=== PATIENT | female | born 1970 | race Asian ===

== ENCOUNTER 2016-07-29 22:17 | Emergency (ER) | payer OTHER ==
[~2016-07-29] VITALS: Ht 162.6 cm; Wt 77.1 kg
[~2016-07-29 22:17] MED LIST: CEFP100T PO; CIPR500T PO; HYDR-2666 PO; PHEN-373 PO
[2016-07-29] MEDS ORDERED: MECLIZINE HCL 12.5 MG TABLET. PO ONE (22:45)
[2016-07-29] MEDS ORDERED: KETOROLAC 15 MG/ML VIAL. IV ONE (22:45)
[2016-07-29] MEDS ORDERED: IV NORMAL SALINE 500ML BAG 500 ML IV ONE (22:45)
[2016-07-29] MEDS ORDERED: ONDANSETRON PF 4 MG/2 ML VIAL. IV ONE (22:45)
[2016-07-29 22:48] LABS: BASO # 0.1 x10^3/uL (0.0-0.2); BASO % 0 % (0-3); EOS % 1 % (0-3); HEMATOCRIT 30.1 % (36.0-47.0); HEMOGLOBIN 9.3 g/dL (12.0-15.5); LYMPH # 2.4 x10^3/uL (1.0-4.8); LYMPH % 21 % (24-48); MEAN CORPUSCULAR HEMOGLOBIN 21 pg (25-35); MEAN CORPUSCULAR HGB CONC 31 g/dL (31-37); MEAN CORPUSCULAR VOLUME 67 fL (79-100); MONO % 10 % (0-9); NEUT % 68 % (31-73); PLATELET COUNT 345 x10^3/uL (140-400); RED BLOOD COUNT 4.47 x10^6/uL (3.50-5.40); RED CELL DISTRIBUTION WIDTH 17.8 % (11.5-14.5); WHITE BLOOD COUNT 11.5 x10^3/uL (4.0-11.0)
[2016-07-29 23:07] LABS: ANISOCYTOSIS SLIGHT; HYPOCHROMIA MARKED; MICROCYTOSIS MARKED; PLT ESTIMATE ADEQUATE (ADEQUATE)
[2016-07-29 23:09] LABS: CALCIUM 9.1 mg/dL (8.5-10.1); CREATININE 0.6 mg/dL (0.6-1.0); GFR 108.1
[2016-07-29 23:15] LABS: POTASSIUM 2.8 mmol/L (3.5-5.1)
[2016-07-29 23:24] LABS: BILIRUBIN,URINE NEGATIVE (NEG); GLUCOSE,URINE NEGATIVE (NEG); NITRITE,URINE NEGATIVE (NEG); PH,URINE 6.5; PROTEIN,URINE NEGATIVE (NEG-TRACE); UROBILINOGEN,URINE 0.2 mg/dL (0.2 mg/dL)
[2016-07-29 23:27] VITALS: BP 107/69
[2016-07-29] MEDS ORDERED: POTASSIUM CHLORIDE 20 MEQ TABLET.ER. PO ONE (23:30)
[2016-07-29] MEDS ORDERED: LIDO:MAALOX:DONNATAL 1:1:1 15 ML SINGLE DOSE SWSW ONE (23:30)
--- NOTE | 2016-07-29 23:31 | PHYS DOC ---
Past Medical History Past Medical History: Anxiety, Hypertension, Other Additional Past Medical Histor: "Stomach", possibly acid reflux, Past Surgical History: Appendectomy Alcohol Use: None Drug Use: None Adult General Chief Complaint Chief Complaint: SHORTNESS OF BREATH HPI HPI Patient is a 45 year old female who presents with family for gradual onset of feeling poor today with multiple symptoms. Has some nausea and epigastric abdominal discomfort that radiates into chest. Notes nonproductive cough, dyspnea, and decreased appetite. She has some lightheadedness/dizziness upon standing, but not at rest. Has some chills, loose stools and dysuria as well. She denies measured fever, hematuria, back pain, constipation, vaginal bleeding or discharge, sputum production, sore throat, rhinorrhea, nasal congestion. Review of Systems Review of Systems Constitutional: Denies measured fever [] Eyes: Denies change in visual acuity, redness, or eye pain [] HENT: Denies nasal congestion or sore throat [] Respiratory: Has cough and shortness of breath [] Cardiovascular: No additional information not addressed in HPI [] GI: Denies vomiting, bloody stools [] : Denies hematuria [] Musculoskeletal: Denies back pain or joint pain [] Integument: Denies rash or skin lesions [] Neurologic: Denies headache, focal weakness or sensory changes [] Endocrine: Denies polyuria or polydipsia [] Current Medications Current Medications Current Medications Medications (Trade) Dose Ordered Sig/Celsa Start Time Stop Time Status Last Admin Dose Admin Ketorolac Tromethamine (Toradol) 10 mg 1X ONCE 07/29/16 22:45 07/29/16 22:46 DC 07/29/16 23:09 10 MG Meclizine HCl (Antivert) 12.5 mg 1X ONCE 07/29/16 22:45 07/29/16 22:46 DC 07/29/16 23:09 12.5 MG Multi-Ingredient Mouthwash/Gargle (Gi Cocktail Single Dose) 15 ml 1X ONCE 07/29/16 23:30 07/29/16 23:31 DC Ondansetron HCl (Zofran) 4 mg 1X ONCE 07/29/16 22:45 07/29/16 22:46 DC 07/29/16 23:09 4 MG Potassium Chloride (Klor-Con) 40 meq 1X ONCE 07/29/16 23:30 07/29/16 23:31 DC Sodium Chloride 500 ml @ 500 mls/hr 1X ONCE 07/29/16 22:45 07/29/16 23:44 07/29/16 23:09 500 MLS/HR Allergies Allergies Allergies Coded Allergies Type Severity Reaction Last Updated Verified I S O L A T I O N *CONTACT* Allergy Unknown 07/08/15 Yes No Known Medication Allergies Allergy Unknown 07/08/15 Yes Physical Exam Physical Exam Constitutional: Well developed, well nourished, no acute distress, non-toxic appearance. [] HENT: Normocephalic, atraumatic, bilateral external ears normal, oropharynx moist, no oral exudates, nose normal. [] Eyes: PERRLA, EOMI, conjunctiva normal, no discharge. [] Neck: Normal range of motion, no tenderness, supple, no stridor. [] Cardiovascular:Heart rate regular rhythm [] Lungs & Thorax: Bilateral breath sounds clear to auscultation [] Abdomen: Bowel sounds normal, soft, minimal epigastric tenderness, no guarding or rebound. [] Skin: Warm, dry, no erythema, no rash. [] Back: No tenderness, no CVA tenderness. [] Extremities: No tenderness, ROM intact, no edema. [] Neurologic: Alert and oriented X 3, normal motor function, normal sensory function, no focal deficits noted. [] Psychologic: Affect normal, judgement normal, mood normal. [] Current Patient Data Vital Signs Vital Signs Date Time Temp Pulse Resp B/P (MAP) Pulse Ox O2 Delivery O2 Flow Rate FiO2 07/29/16 23:11 97.9 80 16 113/71 (85) 100 Room Air 97.9 Lab Values Laboratory Tests Test 07/29/16 22:35 07/29/16 23:15 White Blood Count 11.5 x10^3/uL (4.0-11.0) H Red Blood Count 4.47 x10^6/uL (3.50-5.40) Hemoglobin 9.3 g/dL (12.0-15.5) L Hematocrit 30.1 % (36.0-47.0) L Mean Corpuscular Volume 67 fL (79-100) L Mean Corpuscular Hemoglobin 21 pg (25-35) L Mean Corpuscular Hemoglobin Concent 31 g/dL (31-37) Red Cell Distribution Width 17.8 % (11.5-14.5) H Platelet Count 345 x10^3/uL (140-400) Neutrophils (%) (Auto) 68 % (31-73) Lymphocytes (%) (Auto) 21 % (24-48) L Monocytes (%) (Auto) 10 % (0-9) H Eosinophils (%) (Auto) 1 % (0-3) Basophils (%) (Auto) 0 % (0-3) Neutrophils # (Auto) 7.9 x10^3uL (1.8-7.7) H Lymphocytes # (Auto) 2.4 x10^3/uL (1.0-4.8) Monocytes # (Auto) 1.1 x10^3/uL (0.0-1.1) Eosinophils # (Auto) 0.1 x10^3/uL (0.0-0.7) Basophils # (Auto) 0.1 x10^3/uL (0.0-0.2) Platelet Estimate Adequate (ADEQUATE) Hypochromasia Marked Anisocytosis Slight Microcytosis Marked Sodium Level 141 mmol/L (136-145) Potassium Level 2.8 mmol/L (3.5-5.1) *L Chloride Level 105 mmol/L (98-107) Carbon Dioxide Level 25 mmol/L (21-32) Anion Gap 11 (6-14) Blood Urea Nitrogen 15 mg/dL (7-20) Creatinine 0.6 mg/dL (0.6-1.0) Estimated GFR (Cockcroft-Gault) 108.1 Glucose Level 101 mg/dL (70-99) H Calcium Level 9.1 mg/dL (8.5-10.1) Troponin I Quantitative < 0.017 ng/mL (0.000-0.055) LQ-Uyg-C-Type Natriuretic Peptide 26 pg/mL (0-124) Urine Collection Type Unknown Urine Color Yellow Urine Clarity Clear Urine pH 6.5 Urine Specific [place] 1.010 Urine Protein Negative mg/dL (NEG-TRACE) Urine Glucose (UA) Negative mg/dL (NEG) Urine Ketones (Stick) Negative mg/dL (NEG) Urine Blood Trace (NEG) Urine Nitrite Negative (NEG) Urine Bilirubin Negative (NEG) Urine Urobilinogen Dipstick 0.2 mg/dL (0.2 mg/dL) Urine Leukocyte Esterase Small (NEG) Urine RBC 3-5 /HPF (0-2) Urine WBC 5-10 /HPF (0-4) Urine Squamous Epithelial Cells Mod /LPF Urine Bacteria Few /HPF (0-FEW) Laboratory Tests 07/29/16 22:35 Laboratory Tests 07/29/16 22:35 EKG EKG EKG as interpreted by me as normal sinus rhythm, rate 83, no ST-T changes, normal intervals, no ectopy Radiology/Procedures Radiology/Procedures Chest xray as interpreted by me with no acute cardiopulmonary disease process Course & Med Decision Making Course & Med Decision Making Pertinent Labs and Imaging studies reviewed. (See chart for details) Workup is largely unremarkable other than mild hypokalemia. This was replaced by mouth. Return precautions given. She understands and agrees with plan. Dragon Disclaimer Dragon Disclaimer This electronic medical record was generated, in whole or in part, using a voice recognition dictation system. Departure Departure Impression: Primary Impression: Abdominal pain Additional Impressions: Chest pain Hypokalemia Disposition: 01 HOME, SELF-CARE Condition: STABLE Referrals: UNKNOWN PCP NAME (PCP) Patient Instructions: Abdominal Pain, [id number], Chest Pain (Nonspecific), [id number] Additional Instructions: Take Zofran as needed for nausea. Take liquids to stay hydrated. Take famotidine for possible acid reflux. Follow-up with your primary care doctor within one week. Return for any concerns. Scripts Famotidine (FAMOTIDINE) 20 Mg Tablet 20 MG PO BID, #30 TAB Prov: Radha EDGE MD 07/29/16 Ondansetron (ZOFRAN ODT) 4 Mg Tab.rapdis 1 TAB SL Q8HRS Y for NAUSEA, #10 TAB Prov: Radha EDGE MD 07/29/16 Problem Qualifiers Primary Impression: Abdominal pain Abdominal location: epigastric Qualified Codes: R10.13 - Epigastric pain Additional Impressions: Chest pain Chest pain type: unspecified Qualified Codes: R07.9 - Chest pain, unspecified Radha EDGE MD July 29, 2016 23:31
[2016-07-29 23:33] LABS: BACTERIA,URINE FEW /HPF (0-FEW); SQUAMOUS EPITHELIAL CELL,UR MOD /LPF
[2016-07-29] MEDS ORDERED: ONDA4TAB10 SL (23:37)
[2016-07-29] MEDS ORDERED: FAMO20TA5 PO (23:40)
--- NOTE | 2016-07-30 07:06 | EKG ---
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
--- NOTE | 2016-07-30 07:45 | RAD ---
Indication shortness of breath. Mid chest pain. PA and lateral views of the chest were obtained and are compared to a study 08/12/2015. The heart and pulmonary vessels appear normal. The lungs are clear. There is no pleural fluid or pneumothorax. Bony structures appear grossly intact. IMPRESSION: No acute or focal process seen in the chest
== END 2016-07-29 23:50 | disposition home or self-care (01) ==
LOC: ER 22:17
DX: R10.13 Epigastric pain (principal); R07.9 Chest pain, unspecified; E87.6 Hypokalemia; F41.9 Anxiety disorder, unspecified; I10 Essential (primary) hypertension; R05 Cough; R30.0 Dysuria; Z90.49 Acquired absence of other specified parts of digestive tract; Z91.041 Radiographic dye allergy status
CPT/HCPCS: 36415; 71020; 80048; 81001; 83880; 84484; 85007; 85027; 87086; 93005; 96361; 96374; 96375; 99285; J1885; J2405; J7040; J8597

== ENCOUNTER 2016-08-08 20:53 | Observation (INO) | payer OTHER ==
[~2016-08-08] VITALS: Ht 160 cm; Wt 77.1 kg
[~2016-08-08 20:53] MED LIST changes: +FAMO20TA5 PO; -HYDR-2666 PO; +HYDR-2758 PO; +ONDA4TAB10 SL; -PHEN-373 PO; +PHEN-444 PO
--- NOTE | 2016-08-08 21:33 | PHYS DOC ---
Past Medical History Past Medical History: Anxiety, Hypertension, Other Additional Past Medical Histor: "Stomach", possibly acid reflux, Past Surgical History: Appendectomy Alcohol Use: None Drug Use: None Adult General Chief Complaint Chief Complaint: CHEST PAIN HPI HPI Patient is a 45 year old F who presents with chest pain and shortness of breath for the past day. Patient speaks a foreign language and her 2 young sons are translating for her. So there is a significant language barrier. Patient states that her chest pain started today after she returned home from work and has progressively gotten worse with increased shortness of breath especially when she walks. Patient states she's had a history of heart attack however does not know she's had stents or bypass surgery. Patient denies any fevers. Patient denies any nausea/vomiting/diarrhea. Patient denies any abdominal pain. Patient denies any risk factors for DVT or PE. All these answers were provided through translation of her sons. Pertinent exam findings: Heart was regular rate and rhythm without any murmurs Lungs are clear to auscultation bilaterally without crackles wheeze or rales ED course: Patient was seen and examined in the emergency room, CBC, CMP, troponin, EKG, chest x-ray, CT angios the chest were ordered 230: Patient was reevaluated still having cp and wants to be admitted. 2315: Dr. Farmer was paged 2325: Discussed CC/HP/PMH with Dr. Farmer and recommends admit [] Pertinent results: 2104: EKG shows normal sinus rhythm rate of 83 no STEMI Troponin was negative CT angios the chest was unremarkable MDM: After reviewing the chart, CC/HPI/PMH, physical exam, [lab results], [ radiological results], I do not believe the patient having an acute NE, PE, thoracic aortic dissection. However given the significant language barrier and the patient's persistent symptoms we'll place the patient observation for the night. Review of Systems Review of Systems GEN: Denies fevers, chills, sweats HEENT: Denies blurred vision, sore throat CV: chest pain RESP: Denies shortness of air, cough GI: Denies n/v/d NEURO: Denies confusion, dizziness MSK: Denies weakness, joint pain/swelling Current Medications Current Medications Current Medications Medications (Trade) Dose Ordered Sig/Celsa Start Time Stop Time Status Last Admin Dose Admin Info (Do NOT chart on this entry -- for MONITORING) 1 each PRN DAILY PRN 08/08/16 22:00 08/10/16 21:59 Iohexol (Omnipaque 300 Mg/ml) 75 ml 1X ONCE 08/08/16 22:30 08/08/16 22:31 DC 08/08/16 22:16 75 ML Allergies Allergies Allergies Coded Allergies Type Severity Reaction Last Updated Verified I S O L A T I O N *CONTACT* Allergy Unknown 07/08/15 Yes No Known Medication Allergies Allergy Unknown 07/08/15 Yes Physical Exam Physical Exam GEN.: No apparent distress. Alert and oriented. HEENT: Head is normocephalic, atraumatic NECK: Supple. LUNGS: CTAB. HEART: RRR, S1, S2 present. Peripheral pulses intact ABDOMEN: Soft, nontender. Positive bowel sounds. EXTREMITIES: Without any cyanosis. NEUROLOGIC: Normal speech, normal tone PSYCHIATRIC: Normal affect, normal mood. SKIN: No ulcerations Current Patient Data Vital Signs Vital Signs Date Time Temp Pulse Resp B/P (MAP) Pulse Ox O2 Delivery O2 Flow Rate FiO2 08/08/16 21:01 97.8 81 20 143/65 (91) 100 Nasal Cannula 2.0 97.8 Lab Values Laboratory Tests Test 08/08/16 20:33 08/08/16 21:16 POC Urine HCG, Qualitative Hcg negative (Negative) White Blood Count 10.3 x10^3/uL (4.0-11.0) Red Blood Count 4.12 x10^6/uL (3.50-5.40) Hemoglobin 8.9 g/dL (12.0-15.5) L Hematocrit 27.6 % (36.0-47.0) L Mean Corpuscular Volume 67 fL (79-100) L Mean Corpuscular Hemoglobin 22 pg (25-35) L Mean Corpuscular Hemoglobin Concent 32 g/dL (31-37) Red Cell Distribution Width 18.3 % (11.5-14.5) H Platelet Count 472 x10^3/uL (140-400) H Neutrophils (%) (Auto) 60 % (31-73) Lymphocytes (%) (Auto) 32 % (24-48) Monocytes (%) (Auto) 6 % (0-9) Eosinophils (%) (Auto) 1 % (0-3) Basophils (%) (Auto) 1 % (0-3) Neutrophils # (Auto) 6.2 x10^3uL (1.8-7.7) Lymphocytes # (Auto) 3.3 x10^3/uL (1.0-4.8) Monocytes # (Auto) 0.6 x10^3/uL (0.0-1.1) Eosinophils # (Auto) 0.1 x10^3/uL (0.0-0.7) Basophils # (Auto) 0.1 x10^3/uL (0.0-0.2) Platelet Estimate Increased (ADEQUATE) Polychromasia Present Hypochromasia Mod Basophilic Stippling Present Anisocytosis Slight Microcytosis Marked Ovalocytes Few Schistocytes Few Sodium Level 144 mmol/L (136-145) Potassium Level 3.0 mmol/L (3.5-5.1) L Chloride Level 108 mmol/L (98-107) H Carbon Dioxide Level 26 mmol/L (21-32) Anion Gap 10 (6-14) Blood Urea Nitrogen 11 mg/dL (7-20) Creatinine 0.8 mg/dL (0.6-1.0) Estimated GFR (Cockcroft-Gault) 77.6 BUN/Creatinine Ratio 14 (6-20) Glucose Level 129 mg/dL (70-99) H Calcium Level 8.9 mg/dL (8.5-10.1) Total Bilirubin 0.4 mg/dL (0.2-1.0) Aspartate Amino Transferase (AST) 16 U/L (15-37) Alanine Aminotransferase (ALT) 21 U/L (14-59) Alkaline Phosphatase 65 U/L (46-116) Troponin I Quantitative < 0.017 ng/mL (0.000-0.055) Total Protein 7.7 g/dL (6.4-8.2) Albumin 3.6 g/dL (3.4-5.0) Albumin/Globulin Ratio 0.9 (1.0-1.7) L Laboratory Tests 08/08/16 21:16 Laboratory Tests 08/08/16 21:16 EKG EKG EKG shows normal sinus rhythm rate of 83 no STEMI [] Radiology/Procedures Radiology/Procedures CT angiogram of the chest and ED Chest x-ray NAD [] Course & Med Decision Making Course & Med Decision Making Pertinent Labs and Imaging studies reviewed. (See chart for details) [] Dragon Disclaimer Dragon Disclaimer This electronic medical record was generated, in whole or in part, using a voice recognition dictation system. Departure Departure Impression: Primary Impression: Chest pain Disposition: 09 ADMITTED INPATIENT Admitting Physician: Boston Farmer Condition: STABLE Referrals: UNKNOWN PCP NAME (PCP) GIULIA BAGLEY DO Aug 08, 2016 21:33
[2016-08-08 21:34] LABS: BASO # 0.1 x10^3/uL (0.0-0.2); BASO % 1 % (0-3); EOS % 1 % (0-3); HEMATOCRIT 27.6 % (36.0-47.0); HEMOGLOBIN 8.9 g/dL (12.0-15.5); LYMPH # 3.3 x10^3/uL (1.0-4.8); LYMPH % 32 % (24-48); MEAN CORPUSCULAR HEMOGLOBIN 22 pg (25-35); MEAN CORPUSCULAR HGB CONC 32 g/dL (31-37); MEAN CORPUSCULAR VOLUME 67 fL (79-100); MONO % 6 % (0-9); NEUT % 60 % (31-73); PLATELET COUNT 472 x10^3/uL (140-400); RED BLOOD COUNT 4.12 x10^6/uL (3.50-5.40); RED CELL DISTRIBUTION WIDTH 18.3 % (11.5-14.5); WHITE BLOOD COUNT 10.3 x10^3/uL (4.0-11.0)
[2016-08-08 21:57] LABS: ALBUMIN 3.6 g/dL (3.4-5.0); ALBUMIN/GLOBULIN RATIO 0.9 (1.0-1.7); CALCIUM 8.9 mg/dL (8.5-10.1); CREATININE 0.8 mg/dL (0.6-1.0); GFR 77.6; TOTAL BILIRUBIN 0.4 mg/dL (0.2-1.0); TOTAL PROTEIN 7.7 g/dL (6.4-8.2)
[2016-08-08] MEDS ORDERED: CONTRAST GIVEN MC PRN (22:00)
[2016-08-08 22:08] LABS: ANISOCYTOSIS SLIGHT; HYPOCHROMIA MOD; MICROCYTOSIS MARKED; OVALOCYTES FEW; PLT ESTIMATE INCREASED (ADEQUATE); POLYCHROMASIA PRESENT; SCHISTOCYTES FEW
[2016-08-08] MEDS ORDERED: IOHEXOL 300 MG/ML 75 ML VIAL IV ONE (22:30)
--- NOTE | 2016-08-08 22:43 | RAD ---
CT Angio chest Indication: chest pain x tonight; Omni 300, 75ml Technique: Multiple contiguous axial images were obtained through the chest after administration of intravenous iodinated contrast. Coronal, sagittal, and 3-D MIP reformations were created. PQRS STATEMENT: One or more of the following in the visualized dose reduction techniques were utilized for this study: 1. Automatic exposure control, 2. Adjustment of the mA and/or kV according to patient size, 3. Use of iterative reconstruction technique Findings: There is no central filling defect within the pulmonary arteries to suggest presence of pulmonary embolism. Heart size is normal. There is no pericardial effusion. The thoracic aorta is normal in caliber with no evidence for dissection. No thoracic adenopathy is identified. The lungs are clear with no evidence for pleural effusion or infiltrate. No destructive osseous lesion is identified. Limited subdiaphragmatic evaluation is unremarkable. Impression: Negative for pulmonary embolism. Electronically signed by: Ras Marion MD (08/08/2016 10:40 PM)
[2016-08-08] MEDS ORDERED: ONDANSETRON PF 4 MG/2 ML VIAL. IV PRN (23:30)
[2016-08-08] MEDS ORDERED: NITROGLYCERIN SUBLINGUAL 0.4 MG BOTTLE OF 25. SL PRN (23:30)
[2016-08-08] MEDS: MORPHINE SULFATE 4 MG/ML DISP.SYRIN. IV PRN (23:42)
[2016-08-08] MEDS ORDERED: ASPIRIN CHEWABLE 81 MG TABLET. PO ONE (23:45)
[2016-08-09] VITALS (7 sets, daily range): BP systolic 93–124; BP diastolic 56–86
[2016-08-09] MEDS: POTASSIUM CHLORIDE 20 MEQ TABLET.ER. PO SCH ×2 (01:14→08:08)
--- NOTE | 2016-08-09 03:29 | ACF ---
Admission Forms Criteria TELEMETRY CARE Telemetry Admission Guidelines (Place 'X' for any and all applicable criteria): Admission to telemetry [A] may be indicated for ANY ONE of the following(1)(2)(3 )(4)(5): [X]I. Cardiac disease, including ANY ONE of the following (9)(10)(11)(12)(13 ): [ ]a) Postacute AR [ ]b) Low-risk patients with ST-segment elevation AR who have undergone successful percutaneous coronary intervention [X]c) Unstable angina [ ]d) Suspected AR (until it is ruled out) [ ]e) Post cardiac surgery (first 48 to 72 hours unless complications occur) [ ]f) Acute arrhythmias (including significant tachycardia or bradycardia) [B] [ ]g) Firing of an implantable cardioverter defibrillator [C] [ ]h) Suspected pacemaker or implantable cardioverter defibrillator malfunction (10) [ ]i) New administration or adjustment of an antiarrhythmic drug [D ] [ ]j) Child admitted for acute congestive heart failure [ ]j) Long QT syndrome [ ]k) Advanced heart block (eg, second-degree Mobitz type II, third- degree heart block) [ ]l) Acute myocarditis or pericarditis [ ]m) Short-term (ambulatory or inpatient) monitoring after a cardiac procedure as indicated by ANY ONE of the following [E]: [ ]i) Electrophysiologic studies [ ]ii) Percutaneous coronary intervention with stent placement [ ]iii) Pacemaker placement with cardiac conduction defect [ ]iv) Implantable cardiac defibrillator placement [ ]II. Drug overdose or poisoning with substance that causes arrhythmias or QT prolongation (eg, phenothiazines, sympathomimetic agents, cyclic antidepressants, digitalis, antiarrhythmic drugs)(15) [ ]III. Short-term (ambulatory or inpatient) monitoring after therapeutic or diagnostic procedure requiring conscious sedation or anesthesia (eg, endoscopy, elective cardioversion) [ ]IV. Acute cerebrovascular even[F](18) [ ]V. Massive blood transfusion (eg, at least 10 units of packed red blood cells in 24 hours) [ ]. Variceal bleeding after endoscopy, sclerotherapy, or IV vasopressin [ ]VII. Uncorrected electrolyte abnormalities associated with an increased risk of dangerous arrhythmia [G]; examples include [ ]a) Hyperkalemia with attributable ECG changes [ ]b) Potassium greater than 6.5 mmol/L (mEq/L) in a patient without history of chronic renal disease [ ]c) Prolonged QT attributed to hypokalemia, hypomagnesemia, or hypocalcemia [ ]VIII.Unexplained syncope or other neurologic event suspected of being due to arrhythmia due to a finding that increases risk; examples include(19)(20)(21): [ ]a) High-risk ECG findings (eg, bifascicular block, bradycardia, abnormal QT interval, ventricular pre- excitation) [ ]b) History of previous syncope due to arrhythmia [ ]c) Abnormal ventricular function (eg, reduced ejection fraction ) [ ]d) Exertional or supine syncope [ ]e) Concerning syncope characteristics (eg, sudden loss of consciousness without prodrome) [ ]f) Family history of sudden [ ]g) Use of arrhythmogenic medication [ ]h) Suspected cardiac ischemia [ ]i) Known channelopathy (eg, long QT syndrome, Brugada syndrome, or catecholaminergic paroxysmal ventricular tachycardia) [ ]j) Known structural heart disease (eg, hypertrophic cardiomyopathy , severe valvular disease) [ ]k) Palpitations preceding syncope The original [employer] content created by [employer] has been revised. The portions of the content which have been revised are identified through the use of italic text or in bold, and [facility] has neither reviewed nor approved the modified material. All other unmodified content is copyright [employer]. Please see references footnoted in the original [employer] edition 2015 Admission Criteria Met?: Yes CORINA LAGUNAS Aug 09, 2016 03:29
[2016-08-09 06:10] LABS: BASO # 0.1 x10^3/uL (0.0-0.2); BASO % 1 % (0-3); EOS % 3 % (0-3); HEMATOCRIT 25.7 % (36.0-47.0); LYMPH # 3.1 x10^3/uL (1.0-4.8); LYMPH % 36 % (24-48); MEAN CORPUSCULAR HEMOGLOBIN 21 pg (25-35); MEAN CORPUSCULAR HGB CONC 31 g/dL (31-37); MEAN CORPUSCULAR VOLUME 67 fL (79-100); MONO % 8 % (0-9); NEUT % 53 % (31-73); PLATELET COUNT 429 x10^3/uL (140-400); RED BLOOD COUNT 3.84 x10^6/uL (3.50-5.40); RED CELL DISTRIBUTION WIDTH 18.2 % (11.5-14.5); WHITE BLOOD COUNT 8.5 x10^3/uL (4.0-11.0)
[2016-08-09 06:18] LABS: CALCIUM 8.5 mg/dL (8.5-10.1); CREATININE 0.6 mg/dL (0.6-1.0); GFR 108.1; POTASSIUM 3.7 mmol/L (3.5-5.1)
--- NOTE | 2016-08-09 08:13 | RAD ---
Indication chest pain A single view of the chest was obtained. Comparison is made to a study 07/29/2016 The level of inspiratory effort is suboptimal. Heart and pulmonary vessels are normal given the level of inspiratory effort. A focal process in the chest is not seen. Given changes in the level of inspiratory effort a significant change compared to the previous exam is not seen. IMPRESSION: Suboptimal inspiratory effort. No acute or focal process is seen in the chest
[2016-08-09] MEDS: MORPHINE SULFATE 4 MG/ML DISP.SYRIN. IV PRN ×2 (08:14→14:24)
--- NOTE | 2016-08-09 12:51 | EKG ---
[facility] [address] [place] [address] Test Date: 2016-08-08 Test Time: 21:01:52 Pat Name: HAYLEY HARDY Department: Room: [facility] Gender: F [employer]: CLAIRE : 1970 Requested By: GIULIA BAGLEY Order Number: [id number] Reading MD: Rachell Vaughn Measurements Intervals [place] Rate: 83 P: 37 [place]: 192 QRS: 5 QRSD: 80 T: 22 QT: 366 QTc: 431 Interpretive Statements SINUS RHYTHM NORMAL ECG RI6.01 Unconfirmed report Compared to ECG 07/29/2016 22:25:40 No significant changes Electronically Signed On 08-09-2016 21:23:41 CDT by Rachell Vaughn
[2016-08-09] MEDS ORDERED: MORPHINE SULFATE 4 MG/ML DISP.SYRIN. IV PRN (15:30)
[2016-08-09] MEDS ORDERED: METOCLOPRAMIDE HCL 10 MG/2 ML VIAL. IV PRN (15:30)
[2016-08-09] MEDS ORDERED: MINERAL OIL 133 ML ENEMA. PR ONE (15:45)
[2016-08-09] MEDS ORDERED: MAGNESIUM CITRATE 296 ML SOLUTION. PO ONE (15:45)
--- NOTE | 2016-08-09 16:58 | PDOC2 ---
CONSULT Date of Consult Date of Consult DATE: 08/09/16 TIME: 16:52 Reason for Consult Reason for Consult: chest pain Referring Physician Referring Physician: Dr. Farmer Identification/Chief Complaint Chief Complaint chest pain Source Source: Patient History of Present Illness Reason for Visit: The patient is a 45-year-old female who came to the emergency room with a chief complaint of one to 2 days of chest pain and increasing shortness of breath. 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 Initial workup included a CT scan of the chest which was negative for pulmonary embolism. EKG shows a sinus rhythm with mild nonspecific ST-T wave changes. Troponin has been negative 2. The patient is now resting more comfortable in bed. Past Medical History Cardiovascular: HTN, NH, Other GI: GERD Psych: Anxiety Past Surgical History Past Surgical History: Appendectomy, Other Family History Family History: Family History Unknown Social History No ALCOHOL: none Drugs: None Current Problem List Problem List Problems Medical Problems: (1) Chest pain Status: Acute Current Medications Current Medications Current Medications Iohexol (Omnipaque 300 Mg/ml) 75 ml 1X ONCE IV Last administered on 08/08/16 22:16; Start 08/08/16 at 22:30; Stop 08/08/16 at 22:31; Status DC Info (Do NOT chart on this entry -- for MONITORING) 1 each PRN DAILY PRN MC SEE COMMENTS; Start 08/08/16 at 22:00; Stop 08/10/16 at 21:59 Ondansetron HCl (Zofran) 4 mg PRN Q8HRS PRN IV NAUSEA/VOMITING Last administered on 08/08/16 23:42; Start 08/08/16 at 23:30; Stop 08/09/16 at 15:28 ; Status DC Morphine Sulfate 4 mg PRN Q2HR PRN IV SEVERE PAIN Last administered on 14:24; Start 08/08/16 at 23:30; Stop 08/09/16 at 15:28; Status DC Nitroglycerin (Nitrostat) 0.4 mg PRN Q5MIN PRN SL CHEST PAIN Last administered on 08/08/16 23:41; Start 08/08/16 at 23:30; Stop 08/09/16 at 23:29 Aspirin (Children'S Aspirin) 324 mg 1X ONCE PO Last administered on 08/08/16 23:40; Start 08/08/16 at 23:45; Stop 08/08/16 at 23:46; Status DC Potassium Chloride (Klor-Con) 20 meq DAILYWBKFT PO Last administered on 08:08; Start 08/09/16 at 01:00 Magnesium Citrate (Citroma) 296 ml 1X ONCE PO Last administered on 08/09/16 15:45; Start 08/09/16 at 15:45; Stop 08/09/16 at 15:46; Status DC Mineral Oil (Fleet Mineral Oil) 133 ml 1X ONCE CO ; Start 08/09/16 at 15:45; Stop 08/09/16 at 15:46; Status DC Morphine Sulfate 2 mg PRN Q2HR PRN IV SEVERE PAIN; Start 08/09/16 at 15:30 Metoclopramide HCl (Reglan) 10 mg PRN Q8HRS PRN IV NAUSEA/VOMITING; Start 08/09 at 15:30 Famotidine (Pepcid) 20 mg BID PO ; Start 08/09/16 at 21:00 Polyethylene Glycol (miraLAX PACKET) 17 gm DAILY PO ; Start 08/09/16 at 17:00 Active Scripts Active Famotidine 20 Mg Tablet 20 Mg PO BID Zofran Odt (Ondansetron) 4 Mg Tab.rapdis 1 Tab SL Q8HRS PRN Phenazopyridine Hcl 200 Mg Tablet 200 Mg PO PRN TID PRN Hydrocodone-Apap 5-325 (Hydrocodone Bit/Acetaminophen) 1 Each Tablet 1 Tab PO PRN Q6HRS PRN Cefpodoxime Proxetil 100 Mg Tablet 100 Mg PO BID Allergies Allergies: Coded Allergies: I S O L A T I O N *CONTACT* (Verified Allergy, Unknown, 07/08/15) mrsa + No Known Medication Allergies (Verified Allergy, Unknown, 07/08/15) ROS Respiratory: YES: SOB with excertion Cardiovascular: yes Chest Pain Physical Exam General: No acute distress HEENT: Atraumatic Lungs: Clear to auscultation Heart: Regular rate Abdomen: Normal bowel sounds Vitals VITALS Vital Signs Date Time Temp Pulse Resp B/P (MAP) Pulse Ox O2 Delivery O2 Flow Rate FiO2 6/11/17 14:54 97 Nasal Cannula 2.0 08/09/16 11:00 97.2 74 16 100/70 (80) 97.2 Labs Labs Laboratory Tests Test 08/08/16 20:33 08/08/16 21:16 08/09/16 02:00 08/09/16 05:10 Bedside Urine HCG, Qualitative Hcg negative (Negative) White Blood Count 10.3 x10^3/uL (4.0-11.0) 8.5 x10^3/uL (4.0-11.0) Red Blood Count 4.12 x10^6/uL (3.50-5.40) 3.84 x10^6/uL (3.50-5.40) Hemoglobin 8.9 g/dL (12.0-15.5) 8.0 g/dL (12.0-15.5) Hematocrit 27.6 % (36.0-47.0) 25.7 % (36.0-47.0) Mean Corpuscular Volume 67 fL (79-100) 67 fL (79-100) Mean Corpuscular Hemoglobin 22 pg (25-35) 21 pg (25-35) Mean Corpuscular Hemoglobin Concent 32 g/dL (31-37) 31 g/dL (31-37) Red Cell Distribution Width 18.3 % (11.5-14.5) 18.2 % (11.5-14.5) Platelet Count 472 x10^3/uL (140-400) 429 x10^3/uL (140-400) Neutrophils (%) (Auto) 60 % (31-73) 53 % (31-73) Lymphocytes (%) (Auto) 32 % (24-48) 36 % (24-48) Monocytes (%) (Auto) 6 % (0-9) 8 % (0-9) Eosinophils (%) (Auto) 1 % (0-3) 3 % (0-3) Basophils (%) (Auto) 1 % (0-3) 1 % (0-3) Neutrophils # (Auto) 6.2 x10^3uL (1.8-7.7) 4.5 x10^3uL (1.8-7.7) Lymphocytes # (Auto) 3.3 x10^3/uL (1.0-4.8) 3.1 x10^3/uL (1.0-4.8) Monocytes # (Auto) 0.6 x10^3/uL (0.0-1.1) 0.7 x10^3/uL (0.0-1.1) Eosinophils # (Auto) 0.1 x10^3/uL (0.0-0.7) 0.2 x10^3/uL (0.0-0.7) Basophils # (Auto) 0.1 x10^3/uL (0.0-0.2) 0.1 x10^3/uL (0.0-0.2) Platelet Estimate Increased (ADEQUATE) Polychromasia Present Hypochromasia Mod Basophilic Stippling Present Anisocytosis Slight Microcytosis Marked Ovalocytes Few Schistocytes Few Sodium Level 144 mmol/L (136-145) 143 mmol/L (136-145) Potassium Level 3.0 mmol/L (3.5-5.1) 3.7 mmol/L (3.5-5.1) Chloride Level 108 mmol/L (98-107) 108 mmol/L (98-107) Carbon Dioxide Level 26 mmol/L (21-32) 26 mmol/L (21-32) Anion Gap 10 (6-14) 9 (6-14) Blood Urea Nitrogen 11 mg/dL (7-20) 17 mg/dL (7-20) Creatinine 0.8 mg/dL (0.6-1.0) 0.6 mg/dL (0.6-1.0) Estimated GFR (Cockcroft-Gault) 77.6 108.1 BUN/Creatinine Ratio 14 (6-20) Glucose Level 129 mg/dL (70-99) 92 mg/dL (70-99) Calcium Level 8.9 mg/dL (8.5-10.1) 8.5 mg/dL (8.5-10.1) Total Bilirubin 0.4 mg/dL (0.2-1.0) Aspartate Amino Transf (AST/SGOT) 16 U/L (15-37) Alanine Aminotransferase (ALT/SGPT) 21 U/L (14-59) Alkaline Phosphatase 65 U/L (46-116) Troponin I Quantitative < 0.017 ng/mL (0.000-0.055) < 0.017 ng/mL (0.000-0.055) Total Protein 7.7 g/dL (6.4-8.2) Albumin 3.6 g/dL (3.4-5.0) Albumin/Globulin Ratio 0.9 (1.0-1.7) Nasal Screen MRSA (PCR) Negative (Negative) Test 08/09/16 11:10 Troponin I Quantitative < 0.017 ng/mL (0.000-0.055) Laboratory Tests Test 08/08/16 20:33 08/08/16 21:16 08/09/16 02:00 08/09/16 05:10 Bedside Urine HCG, Qualitative Hcg negative (Negative) White Blood Count 10.3 x10^3/uL (4.0-11.0) 8.5 x10^3/uL (4.0-11.0) Red Blood Count 4.12 x10^6/uL (3.50-5.40) 3.84 x10^6/uL (3.50-5.40) Hemoglobin 8.9 g/dL (12.0-15.5) 8.0 g/dL (12.0-15.5) Hematocrit 27.6 % (36.0-47.0) 25.7 % (36.0-47.0) Mean Corpuscular Volume 67 fL (79-100) 67 fL (79-100) Mean Corpuscular Hemoglobin 22 pg (25-35) 21 pg (25-35) Mean Corpuscular Hemoglobin Concent 32 g/dL (31-37) 31 g/dL (31-37) Red Cell Distribution Width 18.3 % (11.5-14.5) 18.2 % (11.5-14.5) Platelet Count 472 x10^3/uL (140-400) 429 x10^3/uL (140-400) Neutrophils (%) (Auto) 60 % (31-73) 53 % (31-73) Lymphocytes (%) (Auto) 32 % (24-48) 36 % (24-48) Monocytes (%) (Auto) 6 % (0-9) 8 % (0-9) Eosinophils (%) (Auto) 1 % (0-3) 3 % (0-3) Basophils (%) (Auto) 1 % (0-3) 1 % (0-3) Neutrophils # (Auto) 6.2 x10^3uL (1.8-7.7) 4.5 x10^3uL (1.8-7.7) Lymphocytes # (Auto) 3.3 x10^3/uL (1.0-4.8) 3.1 x10^3/uL (1.0-4.8) Monocytes # (Auto) 0.6 x10^3/uL (0.0-1.1) 0.7 x10^3/uL (0.0-1.1) Eosinophils # (Auto) 0.1 x10^3/uL (0.0-0.7) 0.2 x10^3/uL (0.0-0.7) Basophils # (Auto) 0.1 x10^3/uL (0.0-0.2) 0.1 x10^3/uL (0.0-0.2) Platelet Estimate Increased (ADEQUATE) Polychromasia Present Hypochromasia Mod Basophilic Stippling Present Anisocytosis Slight Microcytosis Marked Ovalocytes Few Schistocytes Few Sodium Level 144 mmol/L (136-145) 143 mmol/L (136-145) Potassium Level 3.0 mmol/L (3.5-5.1) 3.7 mmol/L (3.5-5.1) Chloride Level 108 mmol/L (98-107) 108 mmol/L (98-107) Carbon Dioxide Level 26 mmol/L (21-32) 26 mmol/L (21-32) Anion Gap 10 (6-14) 9 (6-14) Blood Urea Nitrogen 11 mg/dL (7-20) 17 mg/dL (7-20) Creatinine 0.8 mg/dL (0.6-1.0) 0.6 mg/dL (0.6-1.0) Estimated GFR (Cockcroft-Gault) 77.6 108.1 BUN/Creatinine Ratio 14 (6-20) Glucose Level 129 mg/dL (70-99) 92 mg/dL (70-99) Calcium Level 8.9 mg/dL (8.5-10.1) 8.5 mg/dL (8.5-10.1) Total Bilirubin 0.4 mg/dL (0.2-1.0) Aspartate Amino Transf (AST/SGOT) 16 U/L (15-37) Alanine Aminotransferase (ALT/SGPT) 21 U/L (14-59) Alkaline Phosphatase 65 U/L (46-116) Troponin I Quantitative < 0.017 ng/mL (0.000-0.055) < 0.017 ng/mL (0.000-0.055) Total Protein 7.7 g/dL (6.4-8.2) Albumin 3.6 g/dL (3.4-5.0) Albumin/Globulin Ratio 0.9 (1.0-1.7) Nasal Screen MRSA (PCR) Negative (Negative) Test 08/09/16 11:10 Troponin I Quantitative < 0.017 ng/mL (0.000-0.055) Images Images Chest x-ray shows no acute process. Chest CT scan shows no evidence of pulmonary emboli. Assessment/Plan Assessment/Plan 1. Chest pain. Patient is feeling better. CT scan of the chest shows no evidence of pulmonary emboli. Troponin has been negative 2. EKG shows no acute ischemic changes. However the patient reports a history of a past myocardial infarction. At this time will continue present medications and complete a rule out protocol. We'll then check a MPI test and an echocardiogram to evaluate the patient's chest pain and reported history of a previous NH. 2. Hypokalemia. Potassium level of 3.0 has been replaced. We'll monitor. 3. Hypertension. Will continue present medications and adjust medications as needed. 4. Possible hyperlipidemia. We'll check a lipid panel. Thank you for allowing us to participate in the care of your patient. CHRISTIE ROJAS MD Aug 09, 2016 16:58
--- NOTE | 2016-08-09 17:15 | HP ---
ADMIT DATE: 08/09/2016 CHIEF COMPLAINT: Abdominal pain, chest pain. The patient is [place] and information also obtained with a hospice director from. HISTORY OF PRESENT ILLNESS: The patient is a 45-year-old woman, who presented to the hospital with some chest pain and shortness of breath. On further questioning, however, she relates that she has abdominal pain and distension is barely able to eat, has not moved her bowels for the past 2 weeks. She states that her shortness of breath actually gets worse when she walks. She denies any vomiting, does have mild nausea and has had trouble eating because of it. Chest pain seems to be related to her stomach pain. She indicates pain location is in the center of her chest towards the right waxing and waning. It is sharp, stabbing, currently, actually resolved. The patient has had a similar chest pain in the past, but denies having had a heart attack. PAST MEDICAL HISTORY: Negative. FAMILY HISTORY: Negative. SOCIAL HISTORY: Lives with her family. Denies any smoking, alcohol or drugs. ALLERGIES: No known drug allergies. MEDICATIONS: MAR reconciled with home medications. REVIEW OF SYSTEMS: Positive as per HPI. Rest of organ system review was negative. She denies any fevers, chills or other generalized symptoms. PHYSICAL EXAMINATION: VITAL SIGNS: From today show a blood pressure of 100/70, heart rate at 74, respiratory rate at 16. She is afebrile. GENERAL: This is a 45-year-old well-nourished, [place] woman, alert and oriented, in no acute distress. HEENT: Shows no scleral icterus. NECK: Supple, without any lymphadenopathy. LUNGS: Clear to auscultation bilaterally. HEART: Regular rate and rhythm. ABDOMEN: Distended, soft, minimal generalized tenderness throughout. EXTREMITIES: Show no edema. SKIN: Warm, soft and dry. LABORATORY DATA: CBC with a WBC of 8.5, hemoglobin 8.0, MCV of 67, platelets at 229. BUN and creatinine of 17 and 0.6, essentially normal electrolytes. Initial potassium in the ER at 3.0. Troponin negative x 3. HCG is negative. IMAGING STUDIES: CTA of the chest is negative for PE. Lungs clear. ASSESSMENT AND PLAN: This is a 45-year-old woman presenting with chest pain and shortness of breath. She has been ruled out for acute coronary syndrome. Also, there is a verbal history of heart disease in her per the son. She denies this. Cardiology has been consulted for further recommendations. Constipation, suspect that this is the etiology of most of her complaints. We will treat with aggressive bowel regimen to help. Includes a mineral oil enema and mag citrate. We will obtain CT of the abdomen as well to rule out serious disorders. We will continue her home medications as indicated. Lovenox and PPI will be started for prophylaxis. PANDA TAYLOR MD DR: UR/nts JOB#: [id number] / [id number]
[2016-08-09] MEDS: POLYETHYLENE GLYCOL 3350 17 GM PACKET. PO SCH (17:32)
[2016-08-09] MEDS ORDERED: CONTRAST GIVEN MC PRN (23:45)
[2016-08-09] MEDS ORDERED: IOHEXOL 300 MG/ML 75 ML VIAL IV ONE (23:45)
[2016-08-09] MEDS ORDERED: IOHEXOL 240 MG/ML 50ML VIAL. IV ONE (23:45)
[2016-08-10] MEDS: FAMOTIDINE 20 MG TABLET. PO SCH ×2 (00:22→10:15)
[2016-08-10 03:00] VITALS: BP 102/70
[2016-08-10 04:28] LABS: BASO # 0.1 x10^3/uL (0.0-0.2); BASO % 1 % (0-3); EOS % 2 % (0-3); HEMATOCRIT 26.3 % (36.0-47.0); HEMOGLOBIN 8.1 g/dL (12.0-15.5); LYMPH # 2.8 x10^3/uL (1.0-4.8); LYMPH % 34 % (24-48); MEAN CORPUSCULAR HEMOGLOBIN 21 pg (25-35); MEAN CORPUSCULAR HGB CONC 31 g/dL (31-37); MEAN CORPUSCULAR VOLUME 68 fL (79-100); MONO % 8 % (0-9); NEUT % 55 % (31-73); PLATELET COUNT 421 x10^3/uL (140-400); RED BLOOD COUNT 3.88 x10^6/uL (3.50-5.40); RED CELL DISTRIBUTION WIDTH 17.8 % (11.5-14.5); WHITE BLOOD COUNT 8.3 x10^3/uL (4.0-11.0)
[2016-08-10 04:56] LABS: % SAT IRON 2 % (15-34); IRON,SERUM 8 ug/dL (50-170)
[2016-08-10 05:00] LABS: ALBUMIN 3.2 g/dL (3.4-5.0); ALBUMIN/GLOBULIN RATIO 0.9 (1.0-1.7); CALCIUM 7.7 mg/dL (8.5-10.1); CREATININE 0.6 mg/dL (0.6-1.0); GFR 108.1; POTASSIUM 3.1 mmol/L (3.5-5.1); TOTAL BILIRUBIN 0.4 mg/dL (0.2-1.0); TOTAL PROTEIN 6.7 g/dL (6.4-8.2)
[2016-08-10 07:00] VITALS: BP 99/72
[2016-08-10] MEDS ORDERED: REGADENOSON 0.4 MG/5 ML DISP.SYRIN. IV ONE (07:45)
--- NOTE | 2016-08-10 08:39 | RAD ---
EXAM: CT abdomen/pelvis with contrast. HISTORY: Abdominal pain. TECHNIQUE: Computed tomography of the abdomen and pelvis was performed after the intravenous administration of 75 mL Omnipaque 300. COMPARISON: 07/17/2015. FINDINGS: Lung windows through the visualized portions of the bases reveal mild atelectasis. Bone windows reveal no suspicious lesions. The colon is diffusely fluid-filled. Correlate for mild colitis or diarrhea. There is no obstruction or clear small bowel wall thickening. The appendix is noninflamed. There are no pathologically enlarged lymph nodes. The liver, gallbladder, pancreas, adrenal glands, and spleen are unremarkable. There is a 3 mm calculus in the right renal lower pole. IMPRESSION: 1. Correlate for diarrhea or mild colitis. No other acute process is identified. 2. 3 mm right renal calculus. *One or more of the following individualized dose reduction techniques were utilized for this examination: 1. Automated exposure control. 2. Adjustment of the mA and/or kV according to patient size. 3. Use of iterative reconstruction technique.
[2016-08-10] MEDS: POLYETHYLENE GLYCOL 3350 17 GM PACKET. PO SCH (09:00)
[2016-08-10] MEDS: POTASSIUM CHLORIDE 20 MEQ TABLET.ER. PO SCH (10:15)
[2016-08-10] MEDS ORDERED: ACETAMINOPHEN 325 MG TABLET. PO PRN (10:30)
--- NOTE | 2016-08-10 11:44 | PDOC ---
CARDIO Progress Notes Date and Time Date of Service 08/10/16 Time of Evaluation 1050 Subjective Subjective: No Chest Pain, No shortness of breath Comments: food service coordinator line utilized Vitals Vitals Vital Signs Date Time Temp Pulse Resp B/P (MAP) Pulse Ox O2 Delivery O2 Flow Rate FiO2 08/10/16 08:00 Room Air 2.0 08/10/16 07:00 98.4 72 18 99/72 (81) 90 98.4 Weight Weight [ ] Input and Output Intake and Output Intake and Output 08/10/16 07:00 Intake Total 360 ml Balance 360 ml Intake Oral 360 ml # Voids 3 Laboratory Labs Laboratory Tests Test 08/10/16 03:15 White Blood Count 8.3 x10^3/uL (4.0-11.0) Red Blood Count 3.88 x10^6/uL (3.50-5.40) Hemoglobin 8.1 g/dL (12.0-15.5) Hematocrit 26.3 % (36.0-47.0) Mean Corpuscular Volume 68 fL (79-100) Mean Corpuscular Hemoglobin 21 pg (25-35) Mean Corpuscular Hemoglobin Concent 31 g/dL (31-37) Red Cell Distribution Width 17.8 % (11.5-14.5) Platelet Count 421 x10^3/uL (140-400) Neutrophils (%) (Auto) 55 % (31-73) Lymphocytes (%) (Auto) 34 % (24-48) Monocytes (%) (Auto) 8 % (0-9) Eosinophils (%) (Auto) 2 % (0-3) Basophils (%) (Auto) 1 % (0-3) Neutrophils # (Auto) 4.6 x10^3uL (1.8-7.7) Lymphocytes # (Auto) 2.8 x10^3/uL (1.0-4.8) Monocytes # (Auto) 0.7 x10^3/uL (0.0-1.1) Eosinophils # (Auto) 0.2 x10^3/uL (0.0-0.7) Basophils # (Auto) 0.1 x10^3/uL (0.0-0.2) Sodium Level 142 mmol/L (136-145) Potassium Level 3.1 mmol/L (3.5-5.1) Chloride Level 106 mmol/L (98-107) Carbon Dioxide Level 28 mmol/L (21-32) Anion Gap 8 (6-14) Blood Urea Nitrogen 13 mg/dL (7-20) Creatinine 0.6 mg/dL (0.6-1.0) Estimated GFR (Cockcroft-Gault) 108.1 BUN/Creatinine Ratio 22 (6-20) Glucose Level 88 mg/dL (70-99) Calcium Level 7.7 mg/dL (8.5-10.1) Iron Level 8 ug/dL (50-170) Total Iron Binding Capacity 344 ug/dL (250-450) Iron Saturation 2 % (15-34) Ferritin 3 ng/mL (8-252) Total Bilirubin 0.4 mg/dL (0.2-1.0) Aspartate Amino Transf (AST/SGOT) 13 U/L (15-37) Alanine Aminotransferase (ALT/SGPT) 16 U/L (14-59) Alkaline Phosphatase 53 U/L (46-116) Total Protein 6.7 g/dL (6.4-8.2) Albumin 3.2 g/dL (3.4-5.0) Albumin/Globulin Ratio 0.9 (1.0-1.7) Triglycerides Level 66 mg/dL (0-150) Cholesterol Level 156 mg/dL (0-200) LDL Cholesterol, Calculated 104 mg/dL (0-100) VLDL Cholesterol, Calculated 13 mg/dL (0-40) Non-HDL Cholesterol Calculated 117 mg/dL (0-129) HDL Cholesterol 39 mg/dL (40-60) Cholesterol/HDL Ratio 4.0 Physical Exam HEENT: Neck Supple W Full Motion Chest: Symmetric LUNGS: Clear to Auscultation Heart: S1S2, RRR Abdomen: Soft N/T Extremities: No Edema Neurology: alert, oriented, follow commands Assessment Assessment 1. Chest pain, atypical troponin series normal; AMI ruled out MPI without evidence of ischemia Echo with preserved LV function; no WMA present no further cardiac workup warranted. Please called with questions 2. Hypokalemia replaced 3. Hypertension controlled 4. Mild hyperlipidemia LDL= 104 recommend diet/lifestyle changes 5. Anxiety possible etiology of pain GONZALEZ DURÁN APRN Aug 10, 2016 11:44
[2016-08-10 11:54] VITALS: BP 106/69
[2016-08-10] MEDS ORDERED: POTASSIUM CHLORIDE 20 MEQ TABLET.ER. PO ONE (12:30)
--- NOTE | 2016-08-10 13:08 | CARD ---
APPROVED REPORT EXAM: Two-dimensional and M-mode echocardiogram with Doppler and color Doppler. Other Information Quality : Good INDICATION Chest Pain 2D DIMENSIONS RVDd2.5 (2.9-3.5cm)Left Atrium(2D)3.6 (1.6-4.0cm) IVSd1.0 (0.7-1.1cm)Aortic Root(2D)2.7 (2.0-3.7cm) LVDd4.8 (3.9-5.9cm)LVOT Diameter2.0 (1.8-2.4cm) PWd1.0 (0.7-1.1cm)LVDs2.7 (2.5-4.0cm) FS (%) 30.0 %SV81.8 ml LVEF(%)60.0 (>50%) Aortic Valve AoV Peak Eder.130.8cm/sAoV VTI23.5cm AO Peak GR.6.8mmHgLVOT Peak Eder.102.7cm/s LVOT VTI 19.33cmAO Mean GR.4mmHg NEHA (VMAX)2.97bh4TSO (VTI)2.65cm2 Mitral Valve MV E Jfethrik88.8cm/sMV DECEL [id number] MV A Tuljdsjc26.9cm/sMV [id number] E/A Ratio1.4MVA (PHT)3.02cm2 TDI E/Lateral E'6.5E/Medial E'9.5 Tricuspid Valve TR P. Lskwqmyj787wt/sRAP JPCKUFRA1mpUd TR Peak Gr.12naHpPEQE18gfAj Pulmonary Vein S1 Lzxhnuys99.4cm/sD2 Isisnpcp28.0cm/s PVa [id number] LEFT VENTRICLE The left ventricle is normal size. There is normal left ventricular wall thickness. The left ventricu lar systolic function is normal and the ejection fraction is within normal range. The Ejection Fracti on is 55-60%. There is normal LV segmental wall motion. Transmitral Doppler flow pattern is normal fo r age. RIGHT VENTRICLE The right ventricle is normal size. The right ventricular systolic function is normal. ATRIA The left atrium size is normal. The right atrium size is normal. The interatrial septum is intact wit h no evidence for an atrial septal defect or patent foramen ovale as noted on 2-D or Doppler imaging. AORTIC VALVE The aortic valve is normal in structure and function. Doppler and Color Flow revealed no significant aortic regurgitation. There is no significant aortic valvular stenosis. MITRAL VALVE The mitral valve is normal in structure and function. There is no evidence of mitral valve prolapse. There is no mitral valve stenosis. Doppler and Color-flow revealed trace mitral regurgitation. TRICUSPID VALVE The tricuspid valve is normal in structure and function. Doppler and Color Flow revealed trace tricus pid regurgitation. The PA pressure was estimated at 22 mmHg. There is no tricuspid valve stenosis. PULMONIC VALVE Doppler and Color Flow revealed trace pulmonic valvular regurgitation. There is no pulmonic valvular stenosis. GREAT VESSELS The aortic root is normal in size. The ascending aorta is normal in size. The IVC is normal in size a nd collapses >50% with inspiration. PERICARDIAL EFFUSION There is no evidence of significant pericardial effusion. Critical Notification Critical Value: No <Conclusion> The left ventricular systolic function is normal and the ejection fraction is within normal range. Th e Ejection Fraction is 55-60%. There is normal LV segmental wall motion.
--- NOTE | 2016-08-10 13:10 | RAD ---
APPROVED REPORT Test Type: Pharmacological Stress Nurse/Tech: Faye Sol R.N. Test Indications: Chest pain. Cardiac History: [place], HTN Medications: SEE EMR Medical History: Asthma, DM Resting ECG: SR Resting Heart Rate: 67 bpm Resting Blood Pressure: 97/65mmHg Pretest Chest Pain: None Nurse/Tech Notes S1S2, lungs CTA but diminished in RUL, denied chest pain or SOA. Denied dizziness. Family here with p atient. Consent: The procedure was explained to the patient in lay terms. Informed consent was witnessed. Bryan eout was entered into [employer]. History and Stress Test performed by Faye Sol R.N. Pharm. Details Pharmacologic stress testing was performed using 0.4mg per 5ml of regadenoson given intravenously ove r 7-10 seconds. Stress Symptoms No chest pain or symptoms. POST EXERCISE Reason for Termination: Infusion complete Max HR: 102 bpm Max Blood Pressure: 98/61mmHg Blood Pressure response to exercise: Normal blood pressure response during stress. Heart Rate response to exercise: Normal Chest Pain: No. Arrhythmia: No. ST Change: No. INTERPRETATION Stress EKG Conclusion: No evidence of acute EKG changes. Imaging Protocol IMAGE PROTOCOL: Rest Tc-99m/stress Tc-99m 1 day Rest: Stress: Viability: Radiopharm.Tc99m EozxxlsifIi22y Sestamibi Dose11.8mCi 33mCi Duration 15min. 10min. Img Date 08/10/2016 08/10/2016 Inj-Img Jesa47nuk. 60min. Rest Admin Site:IV - Left AntecubitalAdministrator:BERNARD Herman Stress Admin Site: IV - Left AntecubitalAdministrator: Lu Castro, CATHERINE, ARRT (R)(N) STRESS DATA End Diast. Vol.96.0mlAv. Heart Rate70.0bpm End Syst. Vol.23.0mlCO Index BSA0.0L/min Myocardial Kkee201.0gEject. Hbosstyy72.0% Stress Rates Pk. Fill Rate3.34EDV/secLVtime Pk. Fill 132.31msec Pk. Empty Rate3.79ESV/secLVtime Pk. Auiel995.37msec 03/03 Pk. Fill1.83EDV/sec Stress Scores Regional WT0.00Summed WT0.00 Regional WM0.00Summed WM0.00 The rest and stress images show normal perfusion, normal contraction and thickening. LV Perf. Quant 17 Seg. SSS3.00 17 Seg. SRS3.00 17 Seg. SDS1.00 Stress Defect Extent (% LAD)0.00Rest Defect Extent (% LAD)0.00Rev. Defect Extent (% LAD)0.00 Stress Defect Extent (% LCX) 11.30Rest Defect Extent (% LCX)22.50Rev. Defect Extent (% LCX)0.00 Stress Defect Extent (% RCA)0.00Rest Defect Extent (% RCA)0.00Rev. Defect Extent (% RCA)0.00 Stress Defect Extent (% LEIGHA)2.00Rest Defect Extent (% LEIGHA)4.60Rev. Defect Extent (% LEIGHA)0.00 Other Information Quality:Good Risk Assessment: Low Risk Conclusion 1. No evidence of stress induced EKG changes. 2. Normal perfusion at stress/rest. 3. Low risk study. EF > 70%.
[2016-08-10] MEDS ORDERED: FERR325T72 PO (14:28)
--- NOTE | 2016-08-10 14:31 | PDOC3 ---
Discharge Summary [facility] Date of Admission: Aug 08, 2016 Discharge Date: Aug 10, 2016 Admitting Diagnosis 1. chest pain, sob, 2/2 severe anemia likely 2. iron deficiency anemia Problems: Final Diagnosis CONSULTS card Brief Hospital Course Ms. Perrin is a 45 old F, comes for some chest tightness, and dyspnea. echo, MPI neg. she was found anemia, Hb 8. admited heavy menstrual period. dc home with iron po, asked to fu with pcp dc time 35min GENERAL: This is a 45-year-old well-nourished, [place] woman, alert and oriented, in no acute distress. HEENT: Shows no scleral icterus. NECK: Supple, without any lymphadenopathy. LUNGS: Clear to auscultation bilaterally. HEART: Regular rate and rhythm. ABDOMEN: Distended, soft, minimal generalized tenderness throughout. EXTREMITIES: Show no edema. SKIN: Warm, soft and dry. Patient History: Unknown Problems: Disposition home CONDITION AT DISCHARGE: Improved Diet regular Scheduled Famotidine (Famotidine), 20 MG PO BID Ferrous Sulfate (Feosol), 325 MG PO BIDWMEALS Scheduled PRN Hydrocodone Bit/Acetaminophen (Hydrocodone-Apap 5-325 ), 1 TAB PO PRN Q6HRS PRN for MODERATE PAIN Ondansetron (Zofran Odt), 1 TAB SL Q8HRS PRN for NAUSEA Phenazopyridine Hcl (Phenazopyridine Hcl), 200 MG PO PRN TID PRN for URINARY PAIN Discontinued Medications Cefpodoxime Proxetil (Cefpodoxime Proxetil), 100 MG PO BID Follow Up pcp in 2 weeks JONAS ROBERTS MD Aug 10, 2016 14:31
[2016-08-10 15:20] VITALS: BP 105/73
[2016-08-10] MEDS ORDERED: FERROUS SULFATE 325 MG TABLET. PO SCH (17:00)
== END 2016-08-10 16:00 | disposition home or self-care (01) ==
LOC: ER 20:53 → 5 NORTH 23:14 → UNDOADMOB 23:14
PROVIDERS: ADMIT Internal Medicine; ATTEND Internal Medicine
DX: R07.89 Other chest pain (principal); R06.02 Shortness of breath; D50.9 Iron deficiency anemia, unspecified; E87.6 Hypokalemia; I10 Essential (primary) hypertension; E78.5 Hyperlipidemia, unspecified; F41.9 Anxiety disorder, unspecified; K59.00 Constipation, unspecified; I25.2 Old myocardial infarction; N92.0 Excessive and frequent menstruation with regular cycle; K21.9 Gastro-esophageal reflux disease without esophagitis
CPT/HCPCS: 36415; 71010; 71275; 74177; 78452; 80048; 80053; 80061; 81025; 82728; 83540; 83550; 84484; 85007; 85027; 87641; 93005; 93017; 93306; 96374; 96375; 96376; 99285; A9500; G0378; J2270; J2405; J2785; Q9967; G0379

== ENCOUNTER 2017-04-23 21:11 | Emergency (ER) | payer OTHER ==
[2017-04-23 21:42] LABS: ADD MAN DIFF? NO
[2017-04-23 21:48] LABS: BASO # 0.1 x10^3/uL (0.0-0.2); BASO % 1 % (0-3); EOS # 0.1 x10^3/uL (0.0-0.7); EOS % 2 % (0-3); HEMATOCRIT 40.2 % (36.0-47.0); HEMOGLOBIN 13.5 g/dL (12.0-15.5); LYMPH # 3.5 x10^3/uL (1.0-4.8); LYMPH % 36 % (24-48); MEAN CORPUSCULAR HEMOGLOBIN 30 pg (25-35); MEAN CORPUSCULAR HGB CONC 34 g/dL (31-37); MEAN CORPUSCULAR VOLUME 89 fL (79-100); MONO # 0.7 x10^3/uL (0.0-1.1); MONO % 8 % (0-9); NEUT # 5.1 x10^3uL (1.8-7.7); NEUT % 54 % (31-73); PLATELET COUNT 286 x10^3/uL (140-400); RED BLOOD COUNT 4.51 x10^6/uL (3.50-5.40); RED CELL DISTRIBUTION WIDTH 13.3 % (11.5-14.5); WHITE BLOOD COUNT 9.5 x10^3/uL (4.0-11.0)
[2017-04-23 21:59] LABS: D-DIMER < 0.27 ug/mlFEU (0.00-0.50)
[2017-04-23 22:00] LABS: ALBUMIN 3.7 g/dL (3.4-5.0); ALBUMIN/GLOBULIN RATIO 0.9 (1.0-1.7); ALK PHOS 91 U/L (46-116); ALT (SGPT) 28 U/L (14-59); ANION GAP 12 (6-14); AST (SGOT) 18 U/L (15-37); BLOOD UREA NITROGEN 14 mg/dL (7-20); BUN/CREATININE RATIO 18 (6-20); CALCIUM 9.4 mg/dL (8.5-10.1); CARBON DIOXIDE 25 mmol/L (21-32); CHLORIDE 104 mmol/L (98-107); CREATININE 0.8 mg/dL (0.6-1.0); GFR 77.2; GLUCOSE 133 mg/dL (70-99); SODIUM 141 mmol/L (136-145); TOTAL BILIRUBIN 0.4 mg/dL (0.2-1.0); TOTAL PROTEIN 7.9 g/dL (6.4-8.2)
[2017-04-23 22:02] LABS: BILIRUBIN,URINE NEGATIVE (NEG); CLARITY,URINE CLEAR; COLOR,URINE YELLOW; GLUCOSE,URINE NEGATIVE (NEG); NITRITE,URINE NEGATIVE (NEG); PROTEIN,URINE NEGATIVE (NEG-TRACE); UROBILINOGEN,URINE 0.2 mg/dL (0.2 mg/dL)
[2017-04-23 22:03] LABS: POTASSIUM 2.8 mmol/L (3.5-5.1)
[2017-04-23 22:03] LABS: TROPONINI < 0.017 ng/mL (0.000-0.055)
[2017-04-23 22:10] LABS: BACTERIA,URINE 0 /HPF (0-FEW); RBC,URINE OCC /HPF (0-2)
[2017-04-23] MEDS: DEXAMETHASONE SOD PHOS 4 MG/ML VIAL IV ×2 (22:10)
[2017-04-23] MEDS: IV NORMAL SALINE 1000ML BAG 1,000 ML IV ×2 (22:10)
[2017-04-23 22:11] LABS: SQUAMOUS EPITHELIAL CELL,UR FEW /LPF
[2017-04-23] MEDS: POTASSIUM CHLORIDE 20 MEQ TABLET.ER. PO ×2 (22:51)
== END 2017-04-23 22:56 | disposition home or self-care (01) ==
LOC: ER 21:11
DX: J18.9 Pneumonia, unspecified organism (principal); E87.6 Hypokalemia; E78.00 Pure hypercholesterolemia, unspecified; E11.9 Type 2 diabetes mellitus without complications; I10 Essential (primary) hypertension; Z91.041 Radiographic dye allergy status
CPT/HCPCS: 36415; 71045; 80053; 81001; 84484; 85025; 85379; 87086; 93005; 96361; 96374; 99285-25; J1100; J7030

== ENCOUNTER 2017-05-20 20:37 | Emergency (ER) | payer OTHER ==
[2017-05-20 21:37] LABS: BILIRUBIN,URINE NEGATIVE (NEG); CLARITY,URINE CLEAR; COLOR,URINE YELLOW; GLUCOSE,URINE NEGATIVE (NEG); NITRITE,URINE NEGATIVE (NEG); PH,URINE 6.5; PROTEIN,URINE NEGATIVE (NEG-TRACE); UROBILINOGEN,URINE 0.2 mg/dL (0.2 mg/dL)
[2017-05-20 21:43] LABS: NEG OBC UR NEG; POS OBC UR POS; U PREG PATIENT NEGATIVE (NEG)
[2017-05-20 21:47] LABS: ADD MAN DIFF? NO
[2017-05-20 21:48] LABS: BACTERIA,URINE FEW /HPF (0-FEW); RBC,URINE RARE /HPF (0-2); SQUAMOUS EPITHELIAL CELL,UR OCC /LPF
[2017-05-20 21:50] LABS: BASO # 0.1 x10^3/uL (0.0-0.2); BASO % 1 % (0-3); EOS # 0.1 x10^3/uL (0.0-0.7); EOS % 1 % (0-3); HEMATOCRIT 41.1 % (36.0-47.0); HEMOGLOBIN 13.8 g/dL (12.0-15.5); LYMPH % 28 % (24-48); MEAN CORPUSCULAR HEMOGLOBIN 30 pg (25-35); MEAN CORPUSCULAR HGB CONC 34 g/dL (31-37); MEAN CORPUSCULAR VOLUME 89 fL (79-100); MONO # 0.9 x10^3/uL (0.0-1.1); MONO % 8 % (0-9); NEUT # 6.6 x10^3uL (1.8-7.7); NEUT % 62 % (31-73); PLATELET COUNT 298 x10^3/uL (140-400); RED BLOOD COUNT 4.64 x10^6/uL (3.50-5.40); WHITE BLOOD COUNT 10.6 x10^3/uL (4.0-11.0)
[2017-05-20] MEDS: IV NORMAL SALINE 1000ML BAG 1,000 ML IV (21:54)
[2017-05-20] MEDS: ONDANSETRON PF 4 MG/2 ML VIAL. IV (21:54)
[2017-05-20 21:58] LABS: ANION GAP 11 (6-14); BLOOD UREA NITROGEN 12 mg/dL (7-20); BUN/CREATININE RATIO 17 (6-20); CALCIUM 8.8 mg/dL (8.5-10.1); CARBON DIOXIDE 25 mmol/L (21-32); CHLORIDE 106 mmol/L (98-107); CREATININE 0.7 mg/dL (0.6-1.0); GFR 90.1; GLUCOSE 104 mg/dL (70-99); SODIUM 142 mmol/L (136-145)
[2017-05-20 22:03] LABS: ALBUMIN 3.6 g/dL (3.4-5.0); ALBUMIN/GLOBULIN RATIO 0.9 (1.0-1.7); ALK PHOS 70 U/L (46-116); ALT (SGPT) 19 U/L (14-59); AST (SGOT) 14 U/L (15-37); TOTAL BILIRUBIN 0.8 mg/dL (0.2-1.0); TOTAL PROTEIN 7.5 g/dL (6.4-8.2)
== END 2017-05-20 23:21 | disposition home or self-care (01) ==
LOC: ER 20:37
DX: R10.30 Lower abdominal pain, unspecified (principal); R30.0 Dysuria; F41.9 Anxiety disorder, unspecified; F32.9 Major depressive disorder, single episode, unspecified; E78.00 Pure hypercholesterolemia, unspecified; I10 Essential (primary) hypertension; Z87.442 Personal history of urinary calculi; Z91.041 Radiographic dye allergy status
CPT/HCPCS: 36415; 74176; 80053; 81001; 81025; 85025; 87086; 96361; 96374; 99285-25; J2405; J7030

== ENCOUNTER 2017-06-16 20:53 | Emergency (ER) | payer OTHER ==
[2017-06-16] MEDS: ASPIRIN CHEWABLE 81 MG TABLET. PO (21:27)
[2017-06-16 21:28] LABS: ADD MAN DIFF? NO
[2017-06-16 21:31] LABS: BASO # 0.1 x10^3/uL (0.0-0.2); BASO % 1 % (0-3); EOS # 0.1 x10^3/uL (0.0-0.7); EOS % 1 % (0-3); HEMATOCRIT 42.3 % (36.0-47.0); HEMOGLOBIN 14.6 g/dL (12.0-15.5); LYMPH # 2.9 x10^3/uL (1.0-4.8); LYMPH % 27 % (24-48); MEAN CORPUSCULAR HEMOGLOBIN 31 pg (25-35); MEAN CORPUSCULAR HGB CONC 34 g/dL (31-37); MEAN CORPUSCULAR VOLUME 89 fL (79-100); MONO # 0.7 x10^3/uL (0.0-1.1); MONO % 7 % (0-9); NEUT # 7.1 x10^3uL (1.8-7.7); NEUT % 65 % (31-73); PLATELET COUNT 282 x10^3/uL (140-400); RED BLOOD COUNT 4.75 x10^6/uL (3.50-5.40); RED CELL DISTRIBUTION WIDTH 14.2 % (11.5-14.5); WHITE BLOOD COUNT 10.9 x10^3/uL (4.0-11.0)
[2017-06-16] MEDS: ALPRAZolam 0.5 MG TABLET PO (21:41)
[2017-06-16] MEDS: IV NORMAL SALINE 1000ML BAG 1,000 ML IV (21:42)
[2017-06-16 21:46] LABS: ALBUMIN 3.6 g/dL (3.4-5.0); ALBUMIN/GLOBULIN RATIO 0.8 (1.0-1.7); ALK PHOS 70 U/L (46-116); ALT (SGPT) 24 U/L (14-59); ANION GAP 13 (6-14); AST (SGOT) 15 U/L (15-37); BLOOD UREA NITROGEN 9 mg/dL (7-20); BUN/CREATININE RATIO 11 (6-20); CALCIUM 8.9 mg/dL (8.5-10.1); CARBON DIOXIDE 24 mmol/L (21-32); CHLORIDE 105 mmol/L (98-107); CREATININE 0.8 mg/dL (0.6-1.0); GFR 77.2; GLUCOSE 177 mg/dL (70-99); SODIUM 142 mmol/L (136-145); TOTAL BILIRUBIN 0.7 mg/dL (0.2-1.0)
[2017-06-16 21:52] LABS: TROPONINI < 0.017 ng/mL (0.000-0.055)
[2017-06-16 21:55] LABS: POTASSIUM 2.6 mmol/L (3.5-5.1)
[2017-06-16 21:57] LABS: THYROID STIM HORMONE (TSH) 2.951 uIU/mL (0.358-3.74)
[2017-06-16] MEDS: POTASSIUM CHLORIDE 20 MEQ TABLET.ER. PO (22:38)
== END 2017-06-16 23:10 | disposition home or self-care (01) ==
LOC: ER 23:10
DX: R00.2 Palpitations (principal); F41.9 Anxiety disorder, unspecified; E87.6 Hypokalemia; I10 Essential (primary) hypertension; F32.9 Major depressive disorder, single episode, unspecified; K21.9 Gastro-esophageal reflux disease without esophagitis; Z91.041 Radiographic dye allergy status; Z79.899 Other long term (current) drug therapy
CPT/HCPCS: 36415; 71045; 80053; 84443; 84484; 85025; 93005; 96360; 99285-25; J7030

== ENCOUNTER 2017-09-02 18:54 | Emergency (ER) | payer OTHER ==
[2017-09-02 19:13] LABS: URINE HCG POC HCG NEGATIVE (Negative)
[2017-09-02 19:20] LABS: BILIRUBIN,URINE NEGATIVE (NEG); CLARITY,URINE CLEAR; COLOR,URINE YELLOW; GLUCOSE,URINE NEGATIVE (NEG); NITRITE,URINE NEGATIVE (NEG); PROTEIN,URINE NEGATIVE (NEG-TRACE); UROBILINOGEN,URINE 0.2 mg/dL (0.2 mg/dL)
[2017-09-02 19:32] LABS: BACTERIA,URINE FEW /HPF (0-FEW); SQUAMOUS EPITHELIAL CELL,UR MOD /LPF
[2017-09-02] MEDS: IBUPROFEN 600 MG TABLET. PO (20:02)
[2017-09-02] MEDS: cefTRIAXone IM 1 GM VIAL IM (20:03)
[2017-09-02 21:35] LABS: ADD MAN DIFF? NO
[2017-09-02 21:36] LABS: BASO # 0.1 x10^3/uL (0.0-0.2); BASO % 1 % (0-3); EOS # 0.2 x10^3/uL (0.0-0.7); EOS % 2 % (0-3); HEMATOCRIT 39.2 % (36.0-47.0); HEMOGLOBIN 13.4 g/dL (12.0-15.5); LYMPH # 3.1 x10^3/uL (1.0-4.8); LYMPH % 32 % (24-48); MEAN CORPUSCULAR HEMOGLOBIN 31 pg (25-35); MEAN CORPUSCULAR HGB CONC 34 g/dL (31-37); MEAN CORPUSCULAR VOLUME 91 fL (79-100); MONO # 0.8 x10^3/uL (0.0-1.1); MONO % 8 % (0-9); NEUT # 5.5 x10^3uL (1.8-7.7); NEUT % 57 % (31-73); PLATELET COUNT 282 x10^3/uL (140-400); RED BLOOD COUNT 4.31 x10^6/uL (3.50-5.40); RED CELL DISTRIBUTION WIDTH 13.8 % (11.5-14.5); WHITE BLOOD COUNT 9.6 x10^3/uL (4.0-11.0)
[2017-09-02 21:44] LABS: ANION GAP 11 (6-14); BLOOD UREA NITROGEN 11 mg/dL (7-20); BUN/CREATININE RATIO 16 (6-20); CALCIUM 8.5 mg/dL (8.5-10.1); CARBON DIOXIDE 23 mmol/L (21-32); CHLORIDE 107 mmol/L (98-107); CREATININE 0.7 mg/dL (0.6-1.0); GFR 90.1; GLUCOSE 97 mg/dL (70-99); POTASSIUM 3.3 mmol/L (3.5-5.1); SODIUM 141 mmol/L (136-145)
[2017-09-02 21:50] LABS: ALBUMIN 3.4 g/dL (3.4-5.0); ALBUMIN/GLOBULIN RATIO 0.9 (1.0-1.7); ALK PHOS 76 U/L (46-116); ALT (SGPT) 16 U/L (14-59); AST (SGOT) 15 U/L (15-37); LIPASE 203 U/L (73-393); TOTAL BILIRUBIN 0.4 mg/dL (0.2-1.0)
== END 2017-09-02 22:07 | disposition home or self-care (01) ==
LOC: ER 18:54
DX: N39.0 Urinary tract infection, site not specified (principal); I10 Essential (primary) hypertension; Z87.442 Personal history of urinary calculi
CPT/HCPCS: 36415; 74176; 76705; 80053; 81001; 81025; 83690; 85025; 87086; 96372; 99285-25; J0696

== ENCOUNTER 2017-11-24 19:38 | Emergency (ER) | payer OTHER ==
[~2017-11-24] VITALS: Ht 162.6 cm; Wt 81.6 kg
[~2017-11-24 19:38] MED LIST changes: +DOXY100T PO; +FERR325T72 PO; +LOSA25TA PO; +NAPR-683 PO; +POTA20TA4 PO; +POTA20TA82 PO; +Pantoprazole PO; +SUCR1TAB35 PO; +SULF1TAB24 PO
[2017-11-24 20:20] VITALS: BP 120/77
[2017-11-24 20:36] LABS: BILIRUBIN,URINE NEGATIVE (NEG); CLARITY,URINE CLEAR; COLOR,URINE YELLOW; NITRITE,URINE NEGATIVE (NEG); PH,URINE 6.5; PROTEIN,URINE NEGATIVE (NEG-TRACE); UROBILINOGEN,URINE 0.2 mg/dL (0.2 mg/dL)
[2017-11-24 20:48] LABS: BACTERIA,URINE 0 /HPF (0-FEW); RBC,URINE 0 /HPF (0-2); SQUAMOUS EPITHELIAL CELL,UR MOD /LPF; WBC,URINE 20-40 /HPF (0-4)
[2017-11-24] MEDS ORDERED: MORPHINE SULFATE 10 MG/ML VIAL. IV ONE (21:00)
[2017-11-24] MEDS ORDERED: traMADol 50 MG TABLET PO ONE (21:00)
[2017-11-24] MEDS ORDERED: cefTRIAXone IM 1 GM VIAL IM ONE (21:00)
[2017-11-24] MEDS ORDERED: LIDOCAINE 1% PF 2 ML VIAL. INJ ONE (21:00)
[2017-11-24] MEDS ORDERED: PHENAZOPYRIDINE 200 MG TABLET. PO ONE (21:00)
[2017-11-24] MEDS ORDERED: TAMSULOSIN 0.4 MG CAP.ER.24H. PO ONE (21:00)
[2017-11-24] MEDS ORDERED: PHEN100T82 PO (21:08)
[2017-11-24] MEDS ORDERED: ONDA4TAB10 SL (21:08)
[2017-11-24] MEDS ORDERED: HYDR-971 PO (21:08)
[2017-11-24] MEDS ORDERED: CEPH500T PO (21:08)
--- NOTE | 2017-11-24 21:09 | PHYS DOC ---
Past Medical History Past Medical History: High Cholesterol, Hypertension, Kidney Stone, UTI, Other Additional Past Medical Histor: "Stomach", possibly acid reflux, Past Surgical History: Other Additional Past Surgical Histo: KIDNEY STONES Alcohol Use: None Drug Use: None Adult General Chief Complaint Chief Complaint: PAIN ON URINATION HPI HPI Patient is a 47 year old female with history of hypertension, who presents today complaining of dysuria for 1 day. Patient denies any fever. Denies any nausea vomiting. Denies any hematuria. She states she has history of kidney stones. Denies any flank pain. Patient is Maldivian speaking and the son provided interpretation Review of Systems Review of Systems Constitutional: Denies fever or chills [] Eyes: Denies change in visual acuity, redness, or eye pain [] HENT: Denies nasal congestion or sore throat [] Respiratory: Denies cough or shortness of breath [] Cardiovascular: No additional information not addressed in HPI [] GI: Denies abdominal pain, nausea, vomiting, bloody stools or diarrhea [] : Reports dysuria, denies hematuria [] Musculoskeletal: Denies back pain or joint pain [] Integument: Denies rash or skin lesions [] Neurologic: Denies headache, focal weakness or sensory changes [] All other systems were reviewed and found to be within normal limits, except as documented in this note. Current Medications Current Medications Current Medications Medications (Trade) Dose Ordered Sig/Celsa Start Time Stop Time Status Last Admin Dose Admin Ceftriaxone Sodium (Rocephin Im) 1 gm 1X ONCE 11/24/17 21:00 11/24/17 21:01 DC 11/24/17 21:05 1 GM Lidocaine HCl (Xylocaine-Mpf 1% 2ml Vial) 2 ml 1X ONCE 11/24/17 21:00 11/24/17 21:01 DC 11/24/17 21:07 2 ML Morphine Sulfate (Morphine Sulfate) 5 mg 1X ONCE 11/24/17 21:00 11/24/17 21:01 DC 11/24/17 21:00 5 MG Phenazopyridine HCl (Pyridium) 200 mg 1X ONCE 11/24/17 21:00 11/24/17 21:01 DC 11/24/17 21:04 200 MG Tamsulosin HCl (Flomax) 0.4 mg 1X ONCE 11/24/17 21:00 11/24/17 21:01 DC 11/24/17 21:04 0.4 MG Tramadol HCl (Ultram) 50 mg 1X ONCE 11/24/17 21:00 11/24/17 21:01 Cancel Allergies Allergies Allergies Coded Allergies Type Severity Reaction Last Updated Verified No Known Medication Allergies Allergy Unknown 08/13/17 Yes Physical Exam Physical Exam Constitutional: Well developed, well nourished, no acute distress, non-toxic appearance. [] HENT: Normocephalic, atraumatic, bilateral external ears normal, oropharynx moist, no oral exudates, nose normal. [] Eyes: PERRLA, EOMI, conjunctiva normal, no discharge. [] Neck: Normal range of motion, no tenderness, supple, no stridor. [] Cardiovascular:Heart rate regular rhythm, no murmur [] Lungs & Thorax: Bilateral breath sounds clear to auscultation [] Abdomen: Bowel sounds normal, soft, no tenderness, no masses, no pulsatile masses. [] Skin: Warm, dry, no erythema, no rash. [] Back: No tenderness, no CVA tenderness. [] Extremities: No tenderness, no cyanosis, no clubbing, ROM intact, no edema. [] Neurologic: Alert and oriented X 3, normal motor function, normal sensory function, no focal deficits noted. [] Psychologic: Affect normal, judgement normal, mood normal. [] Current Patient Data Vital Signs Vital Signs Date Time Temp Pulse Resp B/P (MAP) Pulse Ox O2 Delivery O2 Flow Rate FiO2 11/24/17 21:00 16 100 11/24/17 20:20 97.8 66 120/77 (91) Room Air 97.8 Lab Values Laboratory Tests Test 11/24/17 19:43 Urine Collection Type Unknown Urine Color Yellow Urine Clarity Clear Urine pH 6.5 Urine Specific [place] 1.015 Urine Protein Negative mg/dL (NEG-TRACE) Urine Glucose (UA) Negative mg/dL (NEG) Urine Ketones (Stick) Negative mg/dL (NEG) Urine Blood Small (NEG) Urine Nitrite Negative (NEG) Urine Bilirubin Negative (NEG) Urine Urobilinogen Dipstick 0.2 mg/dL (0.2 mg/dL) Urine Leukocyte Esterase Moderate (NEG) Urine RBC 0 /HPF (0-2) Urine WBC 20-40 /HPF (0-4) Urine Squamous Epithelial Cells Mod /LPF Urine Bacteria 0 /HPF (0-FEW) Microbiology 11/24/17 Urine Culture - Final, Complete 11/24/17 Urine Culture Result 1 (ASA) - Final, Complete EKG EKG [] Radiology/Procedures Radiology/Procedures [] Course & Med Decision Making Course & Med Decision Making Pertinent Labs and Imaging studies reviewed. (See chart for details) Patient is in the ED with dysuria. Positive for UTI. Discharged with cephalexin. Also discharged with hydrocodone as needed for pain, Pyridium, and ibuprofen. Follow-up with PCP in one week. Dragon Disclaimer Dragon Disclaimer This electronic medical record was generated, in whole or in part, using a voice recognition dictation system. Departure Departure Impression: Primary Impression: Urinary tract infection Disposition: HOME, SELF-CARE Condition: STABLE Referrals: ALYSSA ROMANO MD (PCP) follow up in one week Patient Instructions: Urinary Tract Infection Additional Instructions: You were treated for urinary tract infection, complete your antibiotics. Take the prescribed pain medicines as needed for pain. Follow-up with your own doctor in one week. Scripts Ondansetron (ZOFRAN ODT) 4 Mg Tab.rapdis 1 TAB SL Q8HRS, #15 TAB Prov: DARIAN FLOYD APRN 11/24/17 Hydrocodone/Apap 5-325 (NORCO 5-325 TABLET) 1 Each Tablet 1 TAB PO Q4-6HRS PRN for PAIN, #10 TAB Prov: DARIAN FLOYD APRN 11/24/17 Cephalexin (CEPHALEXIN) 500 Mg Tablet 1 TAB PO BID, #14 TAB Prov: DARIAN FLOYD APRN 11/24/17 Phenazopyridine Hcl (PYRIDIUM) 100 Mg Tablet 100 MG PO TID, #9 TAB Prov: DARIAN FLOYD APRN 11/24/17 Attending Signature Attending Signature I have reviewed the PA/DRYWALL APPLICATION SUPERVISOR's note and plan of care. I was available for consultation as needed during the patient's visit in the emergency department. I agree with the clinical impression, plan, and disposition. Problem Qualifiers Primary Impression: Urinary tract infection Urinary tract infection type: site unspecified Hematuria presence: without hematuria Qualified Codes: N39.0 - Urinary tract infection, site not specified DARIAN FLOYD APRN Nov 24, 2017 21:09 JUANA AL DO Nov 29, 2017 07:24
--- NOTE | 2017-11-29 16:50 | VNOTE ---
CALL BACK NOTE CALL BACK Microbiology 11/24/17 Urine Culture - Final, Complete 11/24/17 Urine Culture Result 1 (ASA) - Final, Complete Urine culture positive for staph infection she was discharged with cephalexin, non Guatemalan speaker, attempted to call her not able to communicate due to language barrier. Rx for Bactrim to be mailed to patient DARIAN FLOYD MARY Nov 29, 2017 16:49
== END 2017-11-24 22:10 | disposition home or self-care (01) ==
LOC: ER 19:38
DX: N39.0 Urinary tract infection, site not specified (principal); I10 Essential (primary) hypertension; E78.00 Pure hypercholesterolemia, unspecified; Z87.440 Personal history of urinary (tract) infections; Z87.442 Personal history of urinary calculi
CPT/HCPCS: 81001; 87086; 96372; 96374; 99284; J0696; J2270

== ENCOUNTER 2018-03-03 02:07 | Emergency (ER) | payer SELFPAY ==
[~2018-03-03] VITALS: Ht 162.6 cm; Wt 81.6 kg
[~2018-03-03 02:07] MED LIST changes: +CEPH500T PO; -HYDR-2758 PO; +HYDR-2761 PO; +HYDR-3164 PO; +PHEN100T82 PO
[2018-03-03 02:44] LABS: BILIRUBIN,URINE NEGATIVE (NEG); CLARITY,URINE CLEAR; COLOR,URINE YELLOW; NITRITE,URINE NEGATIVE (NEG); PH,URINE 6.5; PROTEIN,URINE NEGATIVE (NEG-TRACE); UROBILINOGEN,URINE 0.2 mg/dL (0.2 mg/dL)
[2018-03-03 02:50] LABS: BASO # 0.1 x10^3/uL (0.0-0.2); BASO % 1 % (0-3); EOS # 0.2 x10^3/uL (0.0-0.7); EOS % 2 % (0-3); HEMOGLOBIN 13.5 g/dL (12.0-15.5); LYMPH # 2.5 x10^3/uL (1.0-4.8); LYMPH % 24 % (24-48); MEAN CORPUSCULAR HEMOGLOBIN 31 pg (25-35); MEAN CORPUSCULAR HGB CONC 35 g/dL (31-37); MEAN CORPUSCULAR VOLUME 89 fL (79-100); MONO % 9 % (0-9); NEUT # 6.7 x10^3uL (1.8-7.7); NEUT % 64 % (31-73); PLATELET COUNT 268 x10^3/uL (140-400); RED BLOOD COUNT 4.41 x10^6/uL (3.50-5.40); RED CELL DISTRIBUTION WIDTH 13.3 % (11.5-14.5); WHITE BLOOD COUNT 10.5 x10^3/uL (4.0-11.0)
[2018-03-03 02:53] LABS: BACTERIA,URINE MODERATE /HPF (0-FEW); SQUAMOUS EPITHELIAL CELL,UR FEW /LPF; WBC,URINE TNTC /HPF (0-4)
[2018-03-03 02:58] LABS: CALCIUM 8.9 mg/dL (8.5-10.1); CREATININE 0.7 mg/dL (0.6-1.0); GFR 89.7; POTASSIUM 3.7 mmol/L (3.5-5.1)
[2018-03-03] MEDS ORDERED: IV NORMAL SALINE 1000ML BAG 1,000 ML IV ONE (03:00)
[2018-03-03] MEDS ORDERED: fentaNYL PF VIAL 100 MCG/2 ML VIAL IV ONE (03:00)
[2018-03-03] MEDS ORDERED: KETOROLAC 15 MG/ML VIAL. IV ONE (03:00)
[2018-03-03 03:03] LABS: ALBUMIN 3.5 g/dL (3.4-5.0); ALBUMIN/GLOBULIN RATIO 0.9 (1.0-1.7); TOTAL BILIRUBIN 0.6 mg/dL (0.2-1.0); TOTAL PROTEIN 7.6 g/dL (6.4-8.2)
[2018-03-03] MEDS ORDERED: cefTRIAXone IV Push 1 GM VIAL. IVP ONE (03:30)
--- NOTE | 2018-03-03 03:43 | RAD ---
CT abdomen and pelvis without contrast: Reason for examination: Abdominal and bilateral flank pain. Evaluate for kidney stones. Helical images were obtained through the abdomen pelvis with no intravenous or oral contrast administered. Reconstruction was performed in sagittal and coronal planes. Exposure: One or more of the following individualized dose reduction techniques were utilized for this examination: 1. Automated exposure control 2. Adjustment of the mA and/or kV according to patient size 3. Use of iterative reconstruction technique. The lung bases are clear. The heart size is normal with no pericardial effusion. No abnormality seen at the liver, spleen, pancreas, adrenal glands or gallbladder. The kidneys show presence of a nonobstructing calculus at the lower pole of the right kidney. No hydronephrosis or obstructive uropathy is evident. No renal masses are seen. The abdominal aorta and inferior vena cava show no acute abnormalities. No abnormality seen at the appendix. There is no evidence of diverticulosis or diverticulitis. No acute abnormalities are evident at the bladder or uterus. No adnexal masses are seen. There are calcifications consistent with phleboliths in the pelvis. No free fluid or free air is seen in the abdomen or pelvis. No acute bony abnormalities are seen. IMPRESSION: Small nonobstructing calculus at the lower pole of the right kidney. Calcifications consistent with phleboliths in the pelvis. No evidence of obstructive uropathy. No other acute abnormality seen in the abdomen or pelvis. Electronically signed by: Fany Camara MD (03/03/2018 3:39 AM) [facility]
[2018-03-03] MEDS ORDERED: CEPH500C PO (04:05)
[2018-03-03] MEDS ORDERED: ONDA4TAB7 PO (04:05)
[2018-03-03 04:16] VITALS: BP 110/59
--- NOTE | 2018-03-03 04:22 | PHYS DOC ---
Past Medical History Past Medical History: High Cholesterol, Hypertension, Kidney Stone, UTI, Other Additional Past Medical Histor: "Stomach", possibly acid reflux, Past Surgical History: Other Additional Past Surgical Histo: KIDNEY STONES Alcohol Use: None Drug Use: None Adult General Chief Complaint Chief Complaint: PAIN ON URINATION HPI HPI Patient is a 47 year old f p/w dysuria urainry frequency dribbilng back pain b/ l and lower abdominal discomfort cramping moderate worse iwth time. no nradiating no exacerbating factors Review of Systems Review of Systems Constitutional: Denies fever or chills [] Eyes: Denies change in visual acuity, redness, or eye pain [] HENT: Denies nasal congestion or sore throat [] Respiratory: Denies cough or shortness of breath [] Musculoskeletal: Denies back pain or joint pain [] Integument: Denies rash or skin lesions [] Neurologic: Denies headache, focal weakness or sensory changes [] All other systems were reviewed and found to be within normal limits, except as documented in this note. Current Medications Current Medications Current Medications Medications (Trade) Dose Ordered Sig/Celsa Start Time Stop Time Status Last Admin Dose Admin Ceftriaxone Sodium (Rocephin) 1 gm 1X ONCE 03/03/18 03:30 03/03/18 03:31 DC 03/03/18 03:33 1 GM Fentanyl Citrate (Fentanyl 2ml Vial) 50 mcg 1X ONCE 03/03/18 03:00 03/03/18 03:01 DC 03/03/18 02:57 50 MCG Ketorolac Tromethamine (Toradol 15mg Vial) 15 mg 1X ONCE 03/03/18 03:00 03/03/18 03:01 DC 03/03/18 02:56 15 MG Sodium Chloride 1,000 ml @ 1,000 mls/hr 1X ONCE 03/03/18 03:00 03/03/18 03:59 DC 03/03/18 02:55 1,000 MLS/HR Allergies Allergies Allergies Coded Allergies Type Severity Reaction Last Updated Verified No Known Medication Allergies Allergy Unknown 08/13/17 Yes Physical Exam Physical Exam Constitutional: Well developed, well nourished, no acute distress, non-toxic appearance. [] HENT: Normocephalic, atraumatic, bilateral external ears normal, oropharynx moist, no oral exudates, nose normal. [] Eyes: PERRLA, EOMI, conjunctiva normal, no discharge. [] Neck: Normal range of motion, no tenderness, supple, no stridor. [] Cardiovascular:Heart rate regular rhythm, no murmur [] Lungs & Thorax: Bilateral breath sounds clear to auscultation [] Abdomen: Bowel sounds normal, soft, no tenderness, no masses, no pulsatile masses. [] Skin: Warm, dry, no erythema, no rash. [] Back: No tenderness, no CVA tenderness. [] Extremities: No tenderness, no cyanosis, no clubbing, ROM intact, no edema. [] Neurologic: Alert and oriented X 3, normal motor function, normal sensory function, no focal deficits noted. [] Psychologic: Affect normal, judgement normal, mood normal. [] Current Patient Data Vital Signs Vital Signs Date Time Temp Pulse Resp B/P (MAP) Pulse Ox O2 Delivery O2 Flow Rate FiO2 03/03/18 03:20 18 03/03/18 02:57 98 99.0 03/03/18 02:10 98.6 83 127/63 (84) Room Air 98.6 Lab Values Laboratory Tests Test 03/03/18 02:10 03/03/18 02:29 03/03/18 02:30 Urine Collection Type Unknown Urine Color Yellow Urine Clarity Clear Urine pH 6.5 Urine Specific [place] <=1.005 Urine Protein Negative mg/dL (NEG-TRACE) Urine Glucose (UA) Negative mg/dL (NEG) Urine Ketones (Stick) Negative mg/dL (NEG) Urine Blood Large (NEG) Urine Nitrite Negative (NEG) Urine Bilirubin Negative (NEG) Urine Urobilinogen Dipstick 0.2 mg/dL (0.2 mg/dL) Urine Leukocyte Esterase Large (NEG) Urine RBC 3-5 /HPF (0-2) Urine WBC Tntc /HPF (0-4) Urine Squamous Epithelial Cells Few /LPF Urine Bacteria Moderate /HPF (0-FEW) POC Urine HCG, Qualitative Hcg negative (Negative) White Blood Count 10.5 x10^3/uL (4.0-11.0) Red Blood Count 4.41 x10^6/uL (3.50-5.40) Hemoglobin 13.5 g/dL (12.0-15.5) Hematocrit 39.0 % (36.0-47.0) Mean Corpuscular Volume 89 fL (79-100) Mean Corpuscular Hemoglobin 31 pg (25-35) Mean Corpuscular Hemoglobin Concent 35 g/dL (31-37) Red Cell Distribution Width 13.3 % (11.5-14.5) Platelet Count 268 x10^3/uL (140-400) Neutrophils (%) (Auto) 64 % (31-73) Lymphocytes (%) (Auto) 24 % (24-48) Monocytes (%) (Auto) 9 % (0-9) Eosinophils (%) (Auto) 2 % (0-3) Basophils (%) (Auto) 1 % (0-3) Neutrophils # (Auto) 6.7 x10^3uL (1.8-7.7) Lymphocytes # (Auto) 2.5 x10^3/uL (1.0-4.8) Monocytes # (Auto) 1.0 x10^3/uL (0.0-1.1) Eosinophils # (Auto) 0.2 x10^3/uL (0.0-0.7) Basophils # (Auto) 0.1 x10^3/uL (0.0-0.2) Sodium Level 140 mmol/L (136-145) Potassium Level 3.7 mmol/L (3.5-5.1) Chloride Level 106 mmol/L (98-107) Carbon Dioxide Level 24 mmol/L (21-32) Anion Gap 10 (6-14) Blood Urea Nitrogen 10 mg/dL (7-20) Creatinine 0.7 mg/dL (0.6-1.0) Estimated GFR (Cockcroft-Gault) 89.7 BUN/Creatinine Ratio 14 (6-20) Glucose Level 96 mg/dL (70-99) Calcium Level 8.9 mg/dL (8.5-10.1) Total Bilirubin 0.6 mg/dL (0.2-1.0) Aspartate Amino Transferase (AST) 15 U/L (15-37) Alanine Aminotransferase (ALT) 20 U/L (14-59) Alkaline Phosphatase 72 U/L (46-116) Total Protein 7.6 g/dL (6.4-8.2) Albumin 3.5 g/dL (3.4-5.0) Albumin/Globulin Ratio 0.9 (1.0-1.7) L Laboratory Tests 1/3/19 02:30 Laboratory Tests 03/03/18 02:30 EKG EKG [] Radiology/Procedures Radiology/Procedures [] Impressions: IMPRESSION: Small nonobstructing calculus at the lower pole of the right kidney. Calcifications consistent with phleboliths in the pelvis. No evidence of obstructive uropathy. No other acute abnormality seen in the abdomen or pelvis. Electronically signed by: Fany Camara MD (03/03/2018 3:39 AM) [facility] Course & Med Decision Making Course & Med Decision Making Pertinent Labs and Imaging studies reviewed. (See chart for details) []uti labs look good vitals look good ct neg for obstructing stone improved with er tx. rx: keflex and zofran return precautions discussed. Dragon Disclaimer Dragon Disclaimer This electronic medical record was generated, in whole or in part, using a voice recognition dictation system. Departure Departure Impression: Primary Impression: Urinary tract infection Disposition: HOME, SELF-CARE Condition: STABLE Referrals: ALYSSA ROMANO MD (PCP) Patient Instructions: Urinary Tract Infection, [id number] Scripts Ondansetron Hcl (ZOFRAN) 4 Mg Tablet 4 MG PO PRN TID PRN for NAUSEA/VOMITING, #15 nausea/vomiting Prov: MARIA ESTHER GODDARD MD 03/03/18 Cephalexin (CEPHALEXIN) 500 Mg Capsule 1 CAP PO QID, #40 CAP Prov: MARIA ESTHER GODDARD MD 03/03/18 MARIA ESTHER GODDARD MD Mar 03, 2018 04:22
== END 2018-03-03 04:36 | disposition home or self-care (01) ==
LOC: ER 02:07
DX: N39.0 Urinary tract infection, site not specified (principal); I10 Essential (primary) hypertension; E78.00 Pure hypercholesterolemia, unspecified; Z87.442 Personal history of urinary calculi
CPT/HCPCS: 36415; 74176; 80053; 81001; 81025; 85025; 87086; 87186; 96374; 96375; 99284; J0696; J1885; J3010; J7030

== ENCOUNTER 2018-04-15 05:16 | Inpatient (IN) | payer OTHER ==
[~2018-04-15] VITALS: Ht 160 cm; Wt 84.9 kg
[~2018-04-15 05:16] MED LIST changes: +CEPH500C PO; +ONDA4TAB7 PO
--- NOTE | 2018-04-15 05:50 | PHYS DOC ---
Past Medical History Past Medical History: High Cholesterol, Hypertension, Kidney Stone, UTI, Other Additional Past Medical Histor: "Stomach", possibly acid reflux, (YUE MACK DO) Past Surgical History: Other Additional Past Surgical Histo: KIDNEY STONES (YUE MACK DO) Alcohol Use: None Drug Use: None (YUE MACK DO) Adult General Chief Complaint Chief Complaint: CHEST PAIN HPI HPI Patient is a 47 year old FEMALE who presents with chest pain. She describes it as a burning sensation that radiates to her shoulder and left arm. It is worse with movement, deep breaths, as well as exertion. nothing seems to make it better. It does seem to get worse with laying flat. There is some nausea. She was started on cetirizine and citalopram in the past 2 days. Symptoms started this morning, approximately an hour prior to arrival after taking her blood pressure medicine. Symptoms are moderate to severe in intensity.[] (YUE MACK DO) Review of Systems Review of Systems Constitutional: Denies fever or chills [] Eyes: Denies change in visual acuity, redness, or eye pain [] HENT: Denies nasal congestion or sore throat [] Respiratory: Denies cough or shortness of breath [] Cardiovascular: No additional information not addressed in HPI [] GI: Denies abdominal pain, nausea, vomiting, bloody stools or diarrhea [] : Denies dysuria or hematuria [] Musculoskeletal: Denies back pain or joint pain [] Integument: Denies rash or skin lesions [] Neurologic: Denies headache, focal weakness or sensory changes [] Endocrine: Denies polyuria or polydipsia [] All other systems were reviewed and found to be within normal limits, except as documented in this note. (YUE MACK DO) Current Medications Current Medications Current Medications Medications (Trade) Dose Ordered Sig/Celsa Start Time Stop Time Status Last Admin Dose Admin Aspirin (Children'S Aspirin) 324 mg 1X ONCE 04/15/18 06:00 04/15/18 06:01 DC 04/15/18 05:55 324 MG Multi-Ingredient Mouthwash/Gargle (Gi Cocktail) 20 ml 1X ONCE 04/15/18 06:00 04/15/18 06:01 DC 04/15/18 05:56 20 ML (IRINEO MADISON MD) Allergies Allergies Allergies Coded Allergies Type Severity Reaction Last Updated Verified No Known Medication Allergies Allergy Unknown 08/13/17 Yes (IRINEO MADISON MD) Physical Exam Physical Exam Constitutional: Well developed, well nourished, no acute distress, non-toxic appearance. [] HENT: Normocephalic, atraumatic, bilateral external ears normal, oropharynx moist, no oral exudates, nose normal. [] Eyes: PERRLA, EOMI, conjunctiva normal, no discharge. [] Neck: Normal range of motion, no tenderness, supple, no stridor. [] Cardiovascular:Heart rate regular rhythm, no murmur [] Lungs & Thorax: Bilateral breath sounds clear to auscultation [] Abdomen: Bowel sounds normal, soft, no tenderness, no masses, no pulsatile masses. [] Skin: Warm, dry, no erythema, no rash. [] Back: No tenderness, no CVA tenderness. [] Extremities: No tenderness, no cyanosis, no clubbing, ROM intact, no edema. [] Neurologic: Alert and oriented X 3, normal motor function, normal sensory function, no focal deficits noted. [] Psychologic: Affect normal, judgement normal, mood normal. [] (FREDERICK,YUE DO) Current Patient Data Vital Signs Vital Signs Date Time Temp Pulse Resp B/P (MAP) Pulse Ox O2 Delivery O2 Flow Rate FiO2 04/15/18 05:58 75 16 112/70 (84) 98 Room Air 04/15/18 05:20 98.4 98.4 (IRINEO MADISON MD) Lab Values Laboratory Tests Test 04/15/18 05:48 04/15/18 06:06 White Blood Count 6.9 x10^3/uL (4.0-11.0) Red Blood Count 4.57 x10^6/uL (3.50-5.40) Hemoglobin 13.1 g/dL (12.0-15.5) Hematocrit 39.6 % (36.0-47.0) Mean Corpuscular Volume 87 fL (79-100) Mean Corpuscular Hemoglobin 29 pg (25-35) Mean Corpuscular Hemoglobin Concent 33 g/dL (31-37) Red Cell Distribution Width 13.5 % (11.5-14.5) Platelet Count 294 x10^3/uL (140-400) Neutrophils (%) (Auto) 57 % (31-73) Lymphocytes (%) (Auto) 32 % (24-48) Monocytes (%) (Auto) 8 % (0-9) Eosinophils (%) (Auto) 2 % (0-3) Basophils (%) (Auto) 1 % (0-3) Neutrophils # (Auto) 3.9 x10^3uL (1.8-7.7) Lymphocytes # (Auto) 2.2 x10^3/uL (1.0-4.8) Monocytes # (Auto) 0.6 x10^3/uL (0.0-1.1) Eosinophils # (Auto) 0.1 x10^3/uL (0.0-0.7) Basophils # (Auto) 0.0 x10^3/uL (0.0-0.2) Prothrombin Time 12.2 SEC (11.7-14.0) Prothrombin Time INR 0.9 (0.8-1.1) D-Dimer (Sachi) 0.84 ug/mlFEU (0.00-0.50) H Maternal Serum HCG Beta Subunit 2 mIU/mL (0-5) Sodium Level 142 mmol/L (136-145) Potassium Level 3.8 mmol/L (3.5-5.1) Chloride Level 104 mmol/L (98-107) Carbon Dioxide Level 26 mmol/L (21-32) Anion Gap 12 (6-14) Blood Urea Nitrogen 12 mg/dL (7-20) Creatinine 0.6 mg/dL (0.6-1.0) Estimated GFR (Cockcroft-Gault) 107.2 BUN/Creatinine Ratio 20 (6-20) Glucose Level 91 mg/dL (70-99) Calcium Level 9.4 mg/dL (8.5-10.1) Magnesium Level 2.0 mg/dL (1.8-2.4) Total Bilirubin 0.8 mg/dL (0.2-1.0) Aspartate Amino Transferase (AST) 30 U/L (15-37) Alanine Aminotransferase (ALT) 25 U/L (14-59) Alkaline Phosphatase 73 U/L (46-116) Troponin I Quantitative < 0.017 ng/mL (0.000-0.055) SD-Nop-C-Type Natriuretic Peptide < 5 pg/mL (0-124) Total Protein 7.7 g/dL (6.4-8.2) Albumin 3.4 g/dL (3.4-5.0) Albumin/Globulin Ratio 0.8 (1.0-1.7) L Lipase 124 U/L (73-393) Urine Collection Type Unknown Urine Color Yellow Urine Clarity Clear Urine pH 6.0 Urine Specific [place] 1.010 Urine Protein Negative mg/dL (NEG-TRACE) Urine Glucose (UA) Negative mg/dL (NEG) Urine Ketones (Stick) Negative mg/dL (NEG) Urine Blood Small (NEG) Urine Nitrite Negative (NEG) Urine Bilirubin Negative (NEG) Urine Urobilinogen Dipstick 0.2 mg/dL (0.2 mg/dL) Urine Leukocyte Esterase Small (NEG) Urine RBC 3-5 /HPF (0-2) Urine WBC 1-4 /HPF (0-4) Urine Squamous Epithelial Cells Mod /LPF Urine Bacteria Few /HPF (0-FEW) Laboratory Tests 04/15/18 05:48 Laboratory Tests 04/15/18 05:48 (IRINOE MADISON MD) EKG EKG EKG shows a sinus rhythm at 70 bpm, normal axis, normal QTc, no ST elevation, no acute changes when c/w 08/12/2017. interpreted by me at 0528.[] (YUE MACK DO) Radiology/Procedures Radiology/Procedures [] (YUE MACK DO) Course & Med Decision Making Course & Med Decision Making Pertinent Labs and Imaging studies reviewed. (See chart for details) ED course: Patient arrived, was placed in bed, and tolerated exam well. Workup for potential cardiac and pulmonary sources of her discomfort was started. Patient care was endorsed to the date time emergency physician at 6 AM.[] (YUE MACK DO) Dragon Disclaimer Dragon Disclaimer This electronic medical record was generated, in whole or in part, using a voice recognition dictation system. (YUE MACK DO) Departure Departure Referrals: ALYSSA ROMANO MD (PCP) Assessment/Plan Assessment/Plan 47-year-old female presenting to the emergency department today with chest pain with a history of hypertension hyperlipidemia. Workup is negative here in the emergency department. We'll admit the patient for chest pain rule out. Dr. Purcell accepts patient for admission. (IRINEO MADISON MD) YUE MACK DO Apr 15, 2018 05:50 IRINEO MADISON MD Apr 15, 2018 12:26
[2018-04-15 06:00] LABS: BASO % 1 % (0-3); EOS # 0.1 x10^3/uL (0.0-0.7); EOS % 2 % (0-3); HEMATOCRIT 39.6 % (36.0-47.0); HEMOGLOBIN 13.1 g/dL (12.0-15.5); LYMPH # 2.2 x10^3/uL (1.0-4.8); LYMPH % 32 % (24-48); MEAN CORPUSCULAR HEMOGLOBIN 29 pg (25-35); MEAN CORPUSCULAR HGB CONC 33 g/dL (31-37); MEAN CORPUSCULAR VOLUME 87 fL (79-100); MONO # 0.6 x10^3/uL (0.0-1.1); MONO % 8 % (0-9); NEUT # 3.9 x10^3uL (1.8-7.7); NEUT % 57 % (31-73); PLATELET COUNT 294 x10^3/uL (140-400); RED BLOOD COUNT 4.57 x10^6/uL (3.50-5.40); RED CELL DISTRIBUTION WIDTH 13.5 % (11.5-14.5); WHITE BLOOD COUNT 6.9 x10^3/uL (4.0-11.0)
[2018-04-15] MEDS ORDERED: ASPIRIN CHEWABLE 81 MG TABLET. PO ONE (06:00)
[2018-04-15] MEDS ORDERED: LIDO:MAALOX 1:1 20 ML SINGLE DOSE. SWSW ONE (06:00)
[2018-04-15 06:10] LABS: CALCIUM 9.4 mg/dL (8.5-10.1); CREATININE 0.6 mg/dL (0.6-1.0); GFR 107.2; POTASSIUM 3.8 mmol/L (3.5-5.1); PROTHROMBIN TIME PATIENT 12.2 SEC (11.7-14.0)
[2018-04-15 06:17] LABS: ALBUMIN 3.4 g/dL (3.4-5.0); ALBUMIN/GLOBULIN RATIO 0.8 (1.0-1.7); TOTAL BILIRUBIN 0.8 mg/dL (0.2-1.0); TOTAL PROTEIN 7.7 g/dL (6.4-8.2)
[2018-04-15 06:26] LABS: BILIRUBIN,URINE NEGATIVE (NEG); CLARITY,URINE CLEAR; COLOR,URINE YELLOW; NITRITE,URINE NEGATIVE (NEG); PROTEIN,URINE NEGATIVE (NEG-TRACE); UROBILINOGEN,URINE 0.2 mg/dL (0.2 mg/dL)
[2018-04-15 06:58] LABS: BACTERIA,URINE FEW /HPF (0-FEW); SQUAMOUS EPITHELIAL CELL,UR MOD /LPF
--- NOTE | 2018-04-15 07:38 | RAD ---
Portable chest, 04/15/2018: HISTORY: Chest pain Comparison is made to a study from 08/12/2017. The heart is at the upper limits of normal in size. The pulmonary vascularity is normal. The depth of inspiration is poor. No acute infiltrate is seen. There is no evidence of pleural fluid. IMPRESSION: No acute cardiopulmonary abnormality is detected. Electronically signed by: Eleazar Alonso MD (04/15/2018 7:35 AM) [facility]
[2018-04-15 07:39] LABS: D-DIMER 0.84 ug/mlFEU (0.00-0.50)
[2018-04-15] MEDS ORDERED: IOHEXOL 350 MG/ML 100 ML VIAL. IV ONE (08:15)
[2018-04-15] MEDS ORDERED: CONTRAST GIVEN. MC PRN (08:30)
[2018-04-15 08:46] LABS: INFLUENZA A PATIENT NEGATIVE (NEGATIVE); INFLUENZA B PATIENT NEGATIVE (NEGATIVE)
--- NOTE | 2018-04-15 08:57 | RAD ---
CT ANGIOGRAPHY CHEST Indication: Shortness of breath. Comparison: August 08, 2016 Technique: After intravenous contrast administration, CT imaging was performed of the chest. MIP reconstructions were obtained. Exposure: One or more of the following individualized dose reduction techniques were utilized for this examination: 1. Automated exposure control 2. Adjustment of the mA and/or kV according to patient size 3. Use of iterative reconstruction technique. FINDINGS: Pulmonary arteries: Pulsatility artifact at the pulmonary artery. No evidence of a central pulmonary embolism. Thoracic aorta: Mild pulsatility artifact ascending aorta. No aortic aneurysm or descending aortic dissection. Thyroid gland: Only barely visualized, appears symmetric. Lymph nodes: Mildly prominent hilar lymphoid tissue appears stable since prior study. No significant lymph node enlargement. Heart: No significant pericadial effusion. Esophagus: No abnormal distention Pleural spaces: No significant effusion Lungs: No consolidating infiltrate in either lung. Trachea and central airways: Patent Bones: No destructive process Upper abdomen: Slices through the upper abdomen are limited due to the technique. Liver is hypodense and although only partially visualized appears enlarged. External Soft Tissue: No acute findings. IMPRESSION: 1. No evidence of a pulmonary embolism. 2. Hepatic steatosis. There may be hepatomegaly. Electronically signed by: Albert Spangler MD (04/15/2018 8:54 AM) [id number]
[2018-04-15] MEDS ORDERED: ONDANSETRON PF 4 MG/2 ML VIAL. IV PRN ×2 (09:30→10:30)
[2018-04-15] MEDS ORDERED: MORPHINE SULFATE 4 MG/ML VIAL. IV PRN (09:30)
[2018-04-15] MEDS ORDERED: FLUT9.9S NS (10:18)
[2018-04-15] MEDS ORDERED: CITA10TA4 PO (10:18)
[2018-04-15] MEDS ORDERED: CETI10TA16 PO (10:18)
[2018-04-15] MEDS ORDERED: LIDO:MAALOX 1:1 20 ML SINGLE DOSE. PO PRN (10:30)
[2018-04-15] MEDS ORDERED: NAPROXEN 500 MG TABLET PO SCH (10:30)
[2018-04-15] MEDS ORDERED: ACETAMINOPHEN 500 MG TABLET PO PRN (10:30)
[2018-04-15] MEDS ORDERED: ACETAMINOPHEN/CODEINE 300/30MG TABLET. PO PRN (10:30)
[2018-04-15] MEDS: LOSARTAN POTASSIUM 25 MG TABLET. PO SCH (11:00)
[2018-04-15] MEDS ORDERED: FLUTICASONE 50MCG/NASAL SPRAY 16GM BOTTLE. NS SCH (11:00)
[2018-04-15 12:00] VITALS: BP 114/76
--- NOTE | 2018-04-15 12:39 | PDOC1 ---
History and Physical Date of Admission Date of Admission DATE: 04/15/18 TIME: 12:34 Identification/Chief Complaint Chief Complaint Chest pain, tingling numbness bilateral arms, acute onset, SOA Source Source: Chart review, Patient History of Present Illness History of Present Illness 47-year-old Somali speaking only female I obtain history via child support agent over the phone. But she still not the best historian despite child support agent. 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 Denies diaphoresis or blacking out. Only past medical history I could review based on records is that she was here few years back and had an EGD done for epigastric pain and was discharged on PPI twice a day. Unsure if this she is still taking that. On home meds supposed to be on ferrous sulfate, SSRI and a PPI. So far the ER - EKG and enzymes are unremarkable blood pressure is okay. D- dimer mildly elevated 0.84 but CTA is negative for PE. Admitted for chest pain rule out. But concerning about the tingling numbness and some perioral numbness she claims she had. I asked about food poisoning, she did not think so, She denies any recent suspicious foods. We'll check an MRI just for completion sake and to be thorough. Patient seen at the emergency room #19 Past Medical History Cardiovascular: HTN Pulmonary: No pertinent hx, Other GI: GERD Heme/Onc: Anemia NOS Hepatobiliary: No pertinent hx Psych: Anxiety Rheumatologic: No pertinent hx Infectious disease: No pertinent hx Renal/: UTI, Other Endocrine: No pertinent hx Past Surgical History Past Surgical History: Appendectomy Family History Family History: Hypertension, Family History Unknown Family History: Parent Social History Smoke: No ALCOHOL: none Drugs: None Current Medications Current Medications Current Medications Aspirin (Children'S Aspirin) 324 mg 1X ONCE PO Last administered on 04/15/18at 05:55; Start 04/15/18 at 06:00; Stop 04/15/18 at 06:01; Status DC Multi-Ingredient Mouthwash/Gargle (Gi Cocktail) 20 ml 1X ONCE SWSW Last administered on 04/15/18at 05:56; Start 04/15/18 at 06:00; Stop 04/15/18 at 06:01 ; Status DC Iohexol (Omnipaque 350 Mg/ml) 100 ml 1X ONCE IV ; Start 04/15/18 at 08:15; Stop 04/15/18 at 08:17; Status DC Info (CONTRAST GIVEN -- Rx MONITORING) 1 each PRN DAILY PRN MC SEE COMMENTS; Start 04/15/18 at 08:30; Stop 04/17/18 at 08:29 Ondansetron HCl (Zofran) 4 mg PRN Q8HRS PRN IV NAUSEA/VOMITING; Start 04/15/18 at 09:30; Stop 04/15/18 at 10:22; Status DC Morphine Sulfate (Morphine Sulfate) 2 mg PRN Q2HR PRN IV PAIN Last administered on 04/15/18at 10:13; Start 04/15/18 at 09:30; Stop 04/16/18 at 09:29 Ondansetron HCl (Zofran) 4 mg PRN Q6HRS PRN IV NAUSEA/VOMITING; Start 04/15/18 at 10:30 Acetaminophen (Tylenol) 500 mg PRN Q6HRS PRN PO MILD PAIN / TEMP; Start at 10:30 Acetaminophen/ Codeine Phosphate (Tylenol #3) 1 tab PRN Q6HRS PRN PO MODERATE PAIN; Start 04/15/18 at 10:30 Multi-Ingredient Mouthwash/Gargle (Gi Cocktail) 20 ml PRN QID PRN PO CHEST PAIN ; Start 04/15/18 at 10:30 Cetirizine HCl (ZyrTEC) 10 mg DAILY PO ; Start 04/15/18 at 11:00 Citalopram Hydrobromide (CeleXA) 10 mg DAILY PO ; Start 04/15/18 at 11:00 Ferrous Sulfate (Feosol) 325 mg BIDWMEALS PO ; Start 04/15/18 at 17:00 Losartan Potassium (Cozaar) 25 mg DAILY PO ; Start 04/15/18 at 11:00 Fluticasone Propionate (Flonase) 2 spray DAILY NS ; Start 04/15/18 at 11:00 Naproxen (Naprosyn) 500 mg BID PO ; Start 04/15/18 at 10:30 Pantoprazole Sodium (Protonix) 40 mg DAILYAC PO ; Start 04/15/18 at 11:30 Active Scripts Active [Pantoprazole] 40 MG Tablet.dr 40 Mg PO BIDAC 30 Days Naprosyn (Naproxen) 500 Mg Tablet 500 Mg PO BID 10 Days Cozaar (Losartan Potassium) 25 Mg Tablet 25 Mg PO DAILY 30 Days Feosol (Ferrous Sulfate) 325 Mg Tablet 325 Mg PO BIDWMEALS 30 Days Reported Flonase Allergy Relief (Fluticasone Propionate) 9.9 Ml Pelican.susp 2 Sprays NS DAILY Cetirizine Hcl 10 Mg Tablet 10 Mg PO DAILY Citalopram Hbr (Citalopram Hydrobromide) 10 Mg Tablet 10 Mg PO DAILY Allergies Allergies: Coded Allergies: No Known Medication Allergies (Verified Allergy, Unknown, 08/13/17) ROS Review of System As per hpi, the rest of 14 point negative Physical Exam General: Alert, Oriented X3, Cooperative, No acute distress, Other (cheeks are slightly flushed but she is not wheezing and not in distress) HEENT: Atraumatic, PERRLA Lungs: Clear to auscultation, Normal air movement Heart: S1S2, RRR, no gallops, no murmurs Cardiovascular: S1, S2 Breasts: Normal Abdomen: Normal bowel sounds, Soft, No tenderness, No hepatosplenomegaly, No masses Rectal Exam: not examined PELVIC: Nml ext genitalia Extremities: No clubbing, No cyanosis, No edema, Normal pulses, No tenderness/ swelling Skin: No rashes, No breakdown, No significant lesion Neuro: Normal gait, Normal speech, Strength at 5/5 X4 ext, Normal tone, Sensation intact, Cranial nerves 3-12 NL, Reflexes 2+ Psych/Mental Status: Mental status NL, Mood NL Vitals Vitals Vital Signs Date Time Temp Pulse Resp B/P (MAP) Pulse Ox O2 Delivery O2 Flow Rate FiO2 04/15/18 12:00 98.8 68 14 114/76 (89) 97 Room Air 98.8 Labs Labs Laboratory Tests Test 04/15/18 05:48 04/15/18 06:06 04/15/18 08:18 White Blood Count 6.9 x10^3/uL (4.0-11.0) Red Blood Count 4.57 x10^6/uL (3.50-5.40) Hemoglobin 13.1 g/dL (12.0-15.5) Hematocrit 39.6 % (36.0-47.0) Mean Corpuscular Volume 87 fL (79-100) Mean Corpuscular Hemoglobin 29 pg (25-35) Mean Corpuscular Hemoglobin Concent 33 g/dL (31-37) Red Cell Distribution Width 13.5 % (11.5-14.5) Platelet Count 294 x10^3/uL (140-400) Neutrophils (%) (Auto) 57 % (31-73) Lymphocytes (%) (Auto) 32 % (24-48) Monocytes (%) (Auto) 8 % (0-9) Eosinophils (%) (Auto) 2 % (0-3) Basophils (%) (Auto) 1 % (0-3) Neutrophils # (Auto) 3.9 x10^3uL (1.8-7.7) Lymphocytes # (Auto) 2.2 x10^3/uL (1.0-4.8) Monocytes # (Auto) 0.6 x10^3/uL (0.0-1.1) Eosinophils # (Auto) 0.1 x10^3/uL (0.0-0.7) Basophils # (Auto) 0.0 x10^3/uL (0.0-0.2) Prothrombin Time 12.2 SEC (11.7-14.0) Prothromb Time International Ratio 0.9 (0.8-1.1) D-Dimer (Sachi) 0.84 ug/mlFEU (0.00-0.50) Maternal Serum HCG Beta Subunit 2 mIU/mL (0-5) Sodium Level 142 mmol/L (136-145) Potassium Level 3.8 mmol/L (3.5-5.1) Chloride Level 104 mmol/L (98-107) Carbon Dioxide Level 26 mmol/L (21-32) Anion Gap 12 (6-14) Blood Urea Nitrogen 12 mg/dL (7-20) Creatinine 0.6 mg/dL (0.6-1.0) Estimated GFR (Cockcroft-Gault) 107.2 BUN/Creatinine Ratio 20 (6-20) Glucose Level 91 mg/dL (70-99) Calcium Level 9.4 mg/dL (8.5-10.1) Magnesium Level 2.0 mg/dL (1.8-2.4) Total Bilirubin 0.8 mg/dL (0.2-1.0) Aspartate Amino Transf (AST/SGOT) 30 U/L (15-37) Alanine Aminotransferase (ALT/SGPT) 25 U/L (14-59) Alkaline Phosphatase 73 U/L (46-116) Troponin I Quantitative < 0.017 ng/mL (0.000-0.055) JQ-Mcl-B-Type Natriuretic Peptide < 5 pg/mL (0-124) Total Protein 7.7 g/dL (6.4-8.2) Albumin 3.4 g/dL (3.4-5.0) Albumin/Globulin Ratio 0.8 (1.0-1.7) Lipase 124 U/L (73-393) Urine Collection Type Unknown Urine Color Yellow Urine Clarity Clear Urine pH 6.0 Urine Specific [place] 1.010 Urine Protein Negative mg/dL (NEG-TRACE) Urine Glucose (UA) Negative mg/dL (NEG) Urine Ketones (Stick) Negative mg/dL (NEG) Urine Blood Small (NEG) Urine Nitrite Negative (NEG) Urine Bilirubin Negative (NEG) Urine Urobilinogen Dipstick 0.2 mg/dL (0.2 mg/dL) Urine Leukocyte Esterase Small (NEG) Urine RBC 3-5 /HPF (0-2) Urine WBC 1-4 /HPF (0-4) Urine Squamous Epithelial Cells Mod /LPF Urine Bacteria Few /HPF (0-FEW) Influenza Type A Antigen Negative (NEGATIVE) Influenza Type B Antigen Negative (NEGATIVE) Laboratory Tests Test 04/15/18 05:48 04/15/18 06:06 04/15/18 08:18 White Blood Count 6.9 x10^3/uL (4.0-11.0) Red Blood Count 4.57 x10^6/uL (3.50-5.40) Hemoglobin 13.1 g/dL (12.0-15.5) Hematocrit 39.6 % (36.0-47.0) Mean Corpuscular Volume 87 fL (79-100) Mean Corpuscular Hemoglobin 29 pg (25-35) Mean Corpuscular Hemoglobin Concent 33 g/dL (31-37) Red Cell Distribution Width 13.5 % (11.5-14.5) Platelet Count 294 x10^3/uL (140-400) Neutrophils (%) (Auto) 57 % (31-73) Lymphocytes (%) (Auto) 32 % (24-48) Monocytes (%) (Auto) 8 % (0-9) Eosinophils (%) (Auto) 2 % (0-3) Basophils (%) (Auto) 1 % (0-3) Neutrophils # (Auto) 3.9 x10^3uL (1.8-7.7) Lymphocytes # (Auto) 2.2 x10^3/uL (1.0-4.8) Monocytes # (Auto) 0.6 x10^3/uL (0.0-1.1) Eosinophils # (Auto) 0.1 x10^3/uL (0.0-0.7) Basophils # (Auto) 0.0 x10^3/uL (0.0-0.2) Prothrombin Time 12.2 SEC (11.7-14.0) Prothromb Time International Ratio 0.9 (0.8-1.1) D-Dimer (Sachi) 0.84 ug/mlFEU (0.00-0.50) Maternal Serum HCG Beta Subunit 2 mIU/mL (0-5) Sodium Level 142 mmol/L (136-145) Potassium Level 3.8 mmol/L (3.5-5.1) Chloride Level 104 mmol/L (98-107) Carbon Dioxide Level 26 mmol/L (21-32) Anion Gap 12 (6-14) Blood Urea Nitrogen 12 mg/dL (7-20) Creatinine 0.6 mg/dL (0.6-1.0) Estimated GFR (Cockcroft-Gault) 107.2 BUN/Creatinine Ratio 20 (6-20) Glucose Level 91 mg/dL (70-99) Calcium Level 9.4 mg/dL (8.5-10.1) Magnesium Level 2.0 mg/dL (1.8-2.4) Total Bilirubin 0.8 mg/dL (0.2-1.0) Aspartate Amino Transf (AST/SGOT) 30 U/L (15-37) Alanine Aminotransferase (ALT/SGPT) 25 U/L (14-59) Alkaline Phosphatase 73 U/L (46-116) Troponin I Quantitative < 0.017 ng/mL (0.000-0.055) RV-Sgq-L-Type Natriuretic Peptide < 5 pg/mL (0-124) Total Protein 7.7 g/dL (6.4-8.2) Albumin 3.4 g/dL (3.4-5.0) Albumin/Globulin Ratio 0.8 (1.0-1.7) Lipase 124 U/L (73-393) Urine Collection Type Unknown Urine Color Yellow Urine Clarity Clear Urine pH 6.0 Urine Specific [place] 1.010 Urine Protein Negative mg/dL (NEG-TRACE) Urine Glucose (UA) Negative mg/dL (NEG) Urine Ketones (Stick) Negative mg/dL (NEG) Urine Blood Small (NEG) Urine Nitrite Negative (NEG) Urine Bilirubin Negative (NEG) Urine Urobilinogen Dipstick 0.2 mg/dL (0.2 mg/dL) Urine Leukocyte Esterase Small (NEG) Urine RBC 3-5 /HPF (0-2) Urine WBC 1-4 /HPF (0-4) Urine Squamous Epithelial Cells Mod /LPF Urine Bacteria Few /HPF (0-FEW) Influenza Type A Antigen Negative (NEGATIVE) Influenza Type B Antigen Negative (NEGATIVE) VTE Prophylaxis Ordered VTE Prophylaxis Devices: Yes VTE Pharmacological Prophylaxi: Yes Assessment/Plan Assessment/Plan Acute onset tingling numbness hands-initially she told me right hand then later she told me also the left hand and arm Chest heaviness squeezing/chest pain rule out ACS History of either PUD or nonulcer dyspepsia-recent EGD a few years back, results ? discharged on PPI twice a day Fatty liver Elevated d-dimer with negative PE Possible depression NOS on SSRI Possible TERRY supposed to be on ferrous sulfate Plan: cards consulted I am okay with her having a diet -i dont think she will have tests today that will require nothing by mouth Check an MRI of the brain I have reconciled home meds Further conditions pending above course ANDRIY FERMIN MD Apr 15, 2018 12:39
--- NOTE | 2018-04-15 12:55 | PDOC2 ---
CARDIAC CONSULT DATE OF CONSULT Date of Consult DATE: 04/15/18 TIME: 12:43 REASON FOR CONSULT Reason for Consult: Chest pain REFERRING PHYSICIAN Referring Physician: Blake SOURCE Source: Chart review, Patient HISTORY OF PRESENT ILLNESS HISTORY OF PRESENT ILLNESS This is a 47 yo female from [facility] admitted for complains of chest pain. She is known for reflux esophagitis which was noted in 07/2017 EGD. Reports that she has been having midchest burning and sometimes throat soreness at times in the last 2 weeks. This discomfort radiates between her shoulder blades and also to left shoulder. No nausea or vomiting. Also she has been feeling tired at work lately but she does not exercise. She has been started on celexa, ativan lately and she could not tell me the reason. Reports no palpitations and no OTT nor exertional CP. Denies any recent falls or injury. No prior CAD nor VTE. Reports. that she has been taking ibuprofen at least twice a day almost everyday. Her epigastric region where the pain originates is tender. This is worse when she lays down and the GI cocktail actually helped in ED. I used the car rental agent phone to elaborate the details of her symptoms. PAST MEDICAL HISTORY Past Medical History Cardiovascular: HTN, DLP Pulmonary: Other (TB 2013) GI: GERD Heme/Onc: Anemia NOS Hepatobiliary: No pertinent hx Psych: Anxiety Rheumatologic: No pertinent hx Infectious disease: No pertinent hx ENT: No pertinent hx Renal/: UTI, Other (nephrolithiasis) Endocrine: Pre DM Dermatology: No pertinent hx PAST SURGICAL HISTORY Past Surgical History 07/2017 EGD with reflux esophagitis, Appendectomy FAMILY HISTORY Family History noncontributory to CV SOCIAL HISTORY Smoke: No ALCOHOL: none Drugs: None Lives: with Family CURRENT MEDICATIONS CURRENT MEDICATIONS Current Medications Medications (Trade) Dose Ordered Sig/Celsa Route PRN Reason Start Time Stop Time Status Last Admin Dose Admin Aspirin (Children'S Aspirin) 324 mg 1X ONCE PO 04/15/18 06:00 04/15/18 06:01 DC 04/15/18 05:55 Multi-Ingredient Mouthwash/Gargle (Gi Cocktail) 20 ml 1X ONCE SWSW 04/15/18 06:00 04/15/18 06:01 DC 04/15/18 05:56 Morphine Sulfate (Morphine Sulfate) 2 mg PRN Q2HR PRN IV PAIN 04/15/18 09:30 04/16/18 09:29 04/15/18 10:13 ALLERGIES ALLERGIES: Coded Allergies: No Known Medication Allergies (Verified Allergy, Unknown, 08/13/17) ROS Review of System 14 point ROS evaluated with pertinent positives noted per HPI PHYSICAL EXAM General: Alert, Oriented X3, Cooperative, No acute distress HEENT: Atraumatic, Mucous membr. moist/pink Lungs: Clear to auscultation, Normal air movement Heart: Regular rate, Normal S1, Normal S2, No murmurs Abdomen: Soft, Other (epigastric tenderness) Extremities: No cyanosis, No edema Skin: No breakdown, No significant lesion Neuro: Normal speech, Sensation intact Psych/Mental Status: Mental status NL, Mood NL MUSCULOSKELETAL: Full range of motion without pain VITALS VITALS Vital Signs Date Time Temp Pulse Resp B/P (MAP) Pulse Ox O2 Delivery O2 Flow Rate FiO2 04/15/18 12:00 98.8 68 14 114/76 (89) 97 Room Air 98.8 LABS Lab: Laboratory Tests Test 04/15/18 05:48 04/15/18 06:06 04/15/18 08:18 White Blood Count 6.9 x10^3/uL (4.0-11.0) Red Blood Count 4.57 x10^6/uL (3.50-5.40) Hemoglobin 13.1 g/dL (12.0-15.5) Hematocrit 39.6 % (36.0-47.0) Mean Corpuscular Volume 87 fL (79-100) Mean Corpuscular Hemoglobin 29 pg (25-35) Mean Corpuscular Hemoglobin Concent 33 g/dL (31-37) Red Cell Distribution Width 13.5 % (11.5-14.5) Platelet Count 294 x10^3/uL (140-400) Neutrophils (%) (Auto) 57 % (31-73) Lymphocytes (%) (Auto) 32 % (24-48) Monocytes (%) (Auto) 8 % (0-9) Eosinophils (%) (Auto) 2 % (0-3) Basophils (%) (Auto) 1 % (0-3) Neutrophils # (Auto) 3.9 x10^3uL (1.8-7.7) Lymphocytes # (Auto) 2.2 x10^3/uL (1.0-4.8) Monocytes # (Auto) 0.6 x10^3/uL (0.0-1.1) Eosinophils # (Auto) 0.1 x10^3/uL (0.0-0.7) Basophils # (Auto) 0.0 x10^3/uL (0.0-0.2) Prothrombin Time 12.2 SEC (11.7-14.0) Prothromb Time International Ratio 0.9 (0.8-1.1) D-Dimer (Sachi) 0.84 ug/mlFEU (0.00-0.50) Maternal Serum HCG Beta Subunit 2 mIU/mL (0-5) Sodium Level 142 mmol/L (136-145) Potassium Level 3.8 mmol/L (3.5-5.1) Chloride Level 104 mmol/L (98-107) Carbon Dioxide Level 26 mmol/L (21-32) Anion Gap 12 (6-14) Blood Urea Nitrogen 12 mg/dL (7-20) Creatinine 0.6 mg/dL (0.6-1.0) Estimated GFR (Cockcroft-Gault) 107.2 BUN/Creatinine Ratio 20 (6-20) Glucose Level 91 mg/dL (70-99) Calcium Level 9.4 mg/dL (8.5-10.1) Magnesium Level 2.0 mg/dL (1.8-2.4) Total Bilirubin 0.8 mg/dL (0.2-1.0) Aspartate Amino Transf (AST/SGOT) 30 U/L (15-37) Alanine Aminotransferase (ALT/SGPT) 25 U/L (14-59) Alkaline Phosphatase 73 U/L (46-116) Troponin I Quantitative < 0.017 ng/mL (0.000-0.055) XZ-Uih-N-Type Natriuretic Peptide < 5 pg/mL (0-124) Total Protein 7.7 g/dL (6.4-8.2) Albumin 3.4 g/dL (3.4-5.0) Albumin/Globulin Ratio 0.8 (1.0-1.7) Lipase 124 U/L (73-393) Urine Collection Type Unknown Urine Color Yellow Urine Clarity Clear Urine pH 6.0 Urine Specific [place] 1.010 Urine Protein Negative mg/dL (NEG-TRACE) Urine Glucose (UA) Negative mg/dL (NEG) Urine Ketones (Stick) Negative mg/dL (NEG) Urine Blood Small (NEG) Urine Nitrite Negative (NEG) Urine Bilirubin Negative (NEG) Urine Urobilinogen Dipstick 0.2 mg/dL (0.2 mg/dL) Urine Leukocyte Esterase Small (NEG) Urine RBC 3-5 /HPF (0-2) Urine WBC 1-4 /HPF (0-4) Urine Squamous Epithelial Cells Mod /LPF Urine Bacteria Few /HPF (0-FEW) Influenza Type A Antigen Negative (NEGATIVE) Influenza Type B Antigen Negative (NEGATIVE) ECHOCARDIOGRAM ECHOCARDIOGRAM <Conclusion> The left ventricular systolic function is normal and the ejection fraction is within normal range. The Ejection Fraction is 55-60%. There is normal LV segmental wall motion. DATE: 08/10/16 1308 STRESS TEST STRESS TEST Conclusion 1. No evidence of stress induced EKG changes. 2. Normal perfusion at stress/rest. 3. Low risk study. EF > 70%. DATE: 08/10/16 1310 ASSESSMENT/PLAN ASSESSMENT/PLAN 1. Atypical CP: trop nml so far. EKG SR without acute changes. suspect GERD exacerbation 2. HTN: controlled 3. HLP 4. Chronic NSAID use 5. Known reflux esophagitis: 07/2017 Recommendations 1. Lipids, TTE, trend trop 2. PPI. Will need alternative to NSAID 3. Consult EUGENE ALARCON APRN Apr 15, 2018 12:55
[2018-04-15 13:24] LABS: CHOLESTEROL/HDL RATIO 5.1
--- NOTE | 2018-04-15 13:45 | CARD ---
MR#: [id number] Date of Study: 04/15/2018 Ordering Physician: EUGENE BISWAS, Referring Physician: ANDRIY FERMIN Tech: Sara Springer [employer]UST APPROVED REPORT EXAM: Two-dimensional and M-mode echocardiogram with Doppler and color Doppler. Other Information Quality : AverageHR: 68bpm Rhythm : NSR INDICATION Chest Pain 2D DIMENSIONS RVDd2.9 (2.9-3.5cm)Left Atrium(2D)3.0 (1.6-4.0cm) IVSd0.8 (0.7-1.1cm)Aortic Root(2D)3.0 (2.0-3.7cm) LVDd4.0 (3.9-5.9cm)LVOT Diameter2.3 (1.8-2.4cm) PWd1.1 (0.7-1.1cm)LVDs2.6 (2.5-4.0cm) FS (%) 34.9 %SV44.0 ml LVEF(%)64.7 (>50%) M-Mode DIMENSIONS Left Atrium(MM)3.25 (2.5-4.0cm)Aortic Root2.95 (2.2-3.7cm) Aortic Valve AoV Peak Eder.123.4cm/sAoV VTI25.4cm AO Peak GR.6.1mmHgLVOT Peak Eder.82.7cm/s AO Mean GR.3mmHgAVA (VMAX)2.69cm2 NEHA (VTI)2.70cm2 Mitral Valve MV E Jzpwbswi71.2cm/sMV DECEL [id number] MV A Knomhruo91.7cm/sE/A Ratio1.8 MV A [id number] Pulmonary Valve PV Peak Rrqamzuo97.4cm/s LEFT VENTRICLE The left ventricle is normal size. There is normal left ventricular wall thickness. The left ventricu lar systolic function is normal and the ejection fraction is within normal range. The Ejection Fracti on is 60-65%. There is normal LV segmental wall motion. Transmitral Doppler flow pattern is Grade I-a bnormal relaxation pattern. RIGHT VENTRICLE The right ventricle is normal size. There is normal right ventricular wall thickness. The right ventr icular systolic function is normal. ATRIA The left atrium size is normal. The right atrium size is normal. The interatrial septum is intact wit h no evidence for an atrial septal defect or patent foramen ovale as noted on 2-D or Doppler imaging. AORTIC VALVE The aortic valve is normal in structure and function. The aortic valve is trileaflet. Doppler and Col or Flow revealed no significant aortic regurgitation. There is no significant aortic valvular stenosi s. MITRAL VALVE The mitral valve is normal in structure and function. There is no evidence of mitral valve prolapse. There is no mitral valve stenosis. Doppler and Color-flow revealed trace mitral regurgitation. TRICUSPID VALVE The tricuspid valve is normal in structure and function. Doppler and Color Flow revealed no tricuspid valve regurgitation noted. There is no tricuspid valve prolapse or vegetation. There is no tricuspid valve stenosis. PULMONIC VALVE Doppler and Color Flow revealed no pulmonic valvular regurgitation. There is no pulmonic valvular sharif nosis. GREAT VESSELS The aortic root is normal in size. The ascending aorta is normal in size. The IVC is normal in size a nd collapses >50% with inspiration. PERICARDIAL EFFUSION There is no evidence of significant pericardial effusion. Critical Notification Critical Value: No <Conclusion> The left ventricular systolic function is normal and the ejection fraction is within normal range. Th e Ejection Fraction is 60-65%. There is normal LV segmental wall motion. Signed by : Shubham Gonzales, Electronically Approved : 04/15/2018 13:44:42
[2018-04-15] MEDS: CETIRIZINE HCL 10 MG TABLET. PO SCH (14:02)
[2018-04-15] MEDS: CITALOPRAM 10 MG TABLET. PO SCH (14:03)
[2018-04-15] MEDS: PANTOPRAZOLE 40 MG TABLET.DR. PO SCH (14:03)
--- NOTE | 2018-04-15 14:32 | PDOC2 ---
GI CONSULT Reason For Consult: Abd pain HPI: HPI: 47 y/o [place] female we have seen before. Presented to ER with complaints of chest pain. CTA negative as were EKG and troponins. Describes squeezing discomfort in substernal area which radiates to interscapular area posteriorly. Does have heartburn w/o dysphagia. Had EGD in July of 2017 showing low-grade reflux esophagitis and antral biopsy with chronic gastritis but negative for H.pylori. In past recommended to take daily PPI which she does not. No PUD. Prior sonograms show fatty liver and normal GB. No pancreatic history. No tobacco or alcohol use. Recently taking some ibuprofen. Denies diarrhea, constipation, overt blood in stool or melena. Wt/appetite OK. Occasional nausea w/o emesis. No GIFH. PMH: PMH: HTN, treated TB, UTI, nephrolithiasis. S/p ureteroscopy/stent. FH: Family History: No pertinent hx Social History: Smoke: No ALCOHOL: none Drugs: None ROS: GEN: Denies fevers, chills, sweats HEENT: Denies blurred vision, sore throat CV: Denies chest pain RESP: Denies shortness of air, cough GI: Per HPI : Denies hematuria, dysuria ENDO: Denies weight changes NEURO: Denies confusion, dizziness MSK: Denies weakness, joint pain/swelling SKIN: Denies jaundice, pruritus Vitals: Vitals: Vital Signs Date Time Temp Pulse Resp B/P (MAP) Pulse Ox O2 Delivery O2 Flow Rate FiO2 04/15/18 12:00 98.8 68 14 114/76 (89) 97 Room Air 98.8 Labs: Labs: Laboratory Tests Test 04/15/18 05:48 04/15/18 06:06 04/15/18 08:18 04/15/18 12:40 White Blood Count 6.9 x10^3/uL (4.0-11.0) Red Blood Count 4.57 x10^6/uL (3.50-5.40) Hemoglobin 13.1 g/dL (12.0-15.5) Hematocrit 39.6 % (36.0-47.0) Mean Corpuscular Volume 87 fL (79-100) Mean Corpuscular Hemoglobin 29 pg (25-35) Mean Corpuscular Hemoglobin Concent 33 g/dL (31-37) Red Cell Distribution Width 13.5 % (11.5-14.5) Platelet Count 294 x10^3/uL (140-400) Neutrophils (%) (Auto) 57 % (31-73) Lymphocytes (%) (Auto) 32 % (24-48) Monocytes (%) (Auto) 8 % (0-9) Eosinophils (%) (Auto) 2 % (0-3) Basophils (%) (Auto) 1 % (0-3) Neutrophils # (Auto) 3.9 x10^3uL (1.8-7.7) Lymphocytes # (Auto) 2.2 x10^3/uL (1.0-4.8) Monocytes # (Auto) 0.6 x10^3/uL (0.0-1.1) Eosinophils # (Auto) 0.1 x10^3/uL (0.0-0.7) Basophils # (Auto) 0.0 x10^3/uL (0.0-0.2) Prothrombin Time 12.2 SEC (11.7-14.0) Prothromb Time International Ratio 0.9 (0.8-1.1) D-Dimer (Sachi) 0.84 ug/mlFEU (0.00-0.50) Maternal Serum HCG Beta Subunit 2 mIU/mL (0-5) Sodium Level 142 mmol/L (136-145) Potassium Level 3.8 mmol/L (3.5-5.1) Chloride Level 104 mmol/L (98-107) Carbon Dioxide Level 26 mmol/L (21-32) Anion Gap 12 (6-14) Blood Urea Nitrogen 12 mg/dL (7-20) Creatinine 0.6 mg/dL (0.6-1.0) Estimated GFR (Cockcroft-Gault) 107.2 BUN/Creatinine Ratio 20 (6-20) Glucose Level 91 mg/dL (70-99) Calcium Level 9.4 mg/dL (8.5-10.1) Magnesium Level 2.0 mg/dL (1.8-2.4) Total Bilirubin 0.8 mg/dL (0.2-1.0) Aspartate Amino Transf (AST/SGOT) 30 U/L (15-37) Alanine Aminotransferase (ALT/SGPT) 25 U/L (14-59) Alkaline Phosphatase 73 U/L (46-116) Troponin I Quantitative < 0.017 ng/mL (0.000-0.055) < 0.017 ng/mL (0.000-0.055) JE-Wcb-W-Type Natriuretic Peptide < 5 pg/mL (0-124) Total Protein 7.7 g/dL (6.4-8.2) Albumin 3.4 g/dL (3.4-5.0) Albumin/Globulin Ratio 0.8 (1.0-1.7) Triglycerides Level 151 mg/dL (0-150) Cholesterol Level 209 mg/dL (0-200) LDL Cholesterol, Calculated 138 mg/dL (0-100) VLDL Cholesterol, Calculated 30 mg/dL (0-40) Non-HDL Cholesterol Calculated 168 mg/dL (0-129) HDL Cholesterol 41 mg/dL (40-60) Cholesterol/HDL Ratio 5.1 Lipase 124 U/L (73-393) Urine Collection Type Unknown Urine Color Yellow Urine Clarity Clear Urine pH 6.0 Urine Specific [place] 1.010 Urine Protein Negative mg/dL (NEG-TRACE) Urine Glucose (UA) Negative mg/dL (NEG) Urine Ketones (Stick) Negative mg/dL (NEG) Urine Blood Small (NEG) Urine Nitrite Negative (NEG) Urine Bilirubin Negative (NEG) Urine Urobilinogen Dipstick 0.2 mg/dL (0.2 mg/dL) Urine Leukocyte Esterase Small (NEG) Urine RBC 3-5 /HPF (0-2) Urine WBC 1-4 /HPF (0-4) Urine Squamous Epithelial Cells Mod /LPF Urine Bacteria Few /HPF (0-FEW) Influenza Type A Antigen Negative (NEGATIVE) Influenza Type B Antigen Negative (NEGATIVE) --dyslipidemia Allergies: Coded Allergies: No Known Medication Allergies (Verified Allergy, Unknown, 08/13/17) Medications: Current Medications Medications (Trade) Dose Ordered Sig/Celsa Route PRN Reason Start Time Stop Time Status Last Admin Dose Admin Aspirin (Children'S Aspirin) 324 mg 1X ONCE PO 04/15/18 06:00 04/15/18 06:01 DC 04/15/18 05:55 Multi-Ingredient Mouthwash/Gargle (Gi Cocktail) 20 ml 1X ONCE SWSW 04/15/18 06:00 04/15/18 06:01 DC 04/15/18 05:56 Morphine Sulfate (Morphine Sulfate) 2 mg PRN Q2HR PRN IV PAIN 04/15/18 09:30 04/16/18 09:29 04/15/18 10:13 Cetirizine HCl (ZyrTEC) 10 mg DAILY PO 04/15/18 11:00 04/15/18 14:02 Citalopram Hydrobromide (CeleXA) 10 mg DAILY PO 04/15/18 11:00 04/15/18 14:03 Fluticasone Propionate (Flonase) 2 spray DAILY NS 04/15/18 11:00 04/15/18 14:04 Pantoprazole Sodium (Protonix) 40 mg DAILYAC PO 04/15/18 11:30 04/15/18 14:03 PE: GEN: NAD HEENT: Atraumatic, PERRLA LUNGS: CTAB HEART: RRR, no murmurs ABD: NABS, S/ND/NT, no masses EXTREMITY: No edema SKIN: No rashes, no jaundice NEURO/PSYCH: A & O 3 A/P: A/P: IMP: NCCP likely from known GERD; history c/w this. Hepatic steatosis on imaging. Apparently average risk for CRC. REC: PPI daily and given repeated admissions for NCCP, chronically. Consider colonoscopy at age 50. OK to dismiss from GI standpoint at your discretion. Thank you. JUANA SHIPLEY MD Apr 15, 2018 14:31
--- NOTE | 2018-04-15 15:53 | RAD ---
EXAM: Brain MRI without contrast. HISTORY: Headaches. Left arm numbness. TECHNIQUE: Multiplanar, multisequence magnetic resonance imaging of the brain was performed without contrast. COMPARISON: None. FINDINGS: There is no restricted diffusion to suggest acute or subacute infarction. There are tiny foci of susceptibility effect within the mj which are likely artifactual. No convincing hemorrhage is seen. There is no mass effect or midline shift. There is no hydrocephalus. The orbits are unremarkable. There is right greater than left maxillary sinus mucosal thickening with small right maxillary sinus mucous retention cysts. There is a small amount of fluid within the right mastoid air cells. There are normal flow voids within the cerebral vessels. The FLAIR images are limited due to motion. There are few tiny scattered foci of signal change within the cerebral white matter, a nonspecific finding. IMPRESSION: 1. No acute intracranial finding. 2. Nonspecific foci of signal change within the cerebral white matter. This can be seen with chronic small vessel disease or chronic migraine headaches. The imaging appearance does not favor demyelinating disease. Electronically signed by: Nikole Beatty MD (04/15/2018 3:50 PM) [id number]
[2018-04-15 16:00] VITALS: BP 116/74
[2018-04-15] MEDS: FERROUS SULFATE 325 MG TABLET. PO SCH (18:10)
--- NOTE | 2018-04-15 19:25 | NUR ---
Patient arrived to room 208 from ICU at shift change around 0700. Patient's at bedside. Report given to JASPER Franklin.
[2018-04-15 19:30] VITALS: BP 98/69
[2018-04-15 23:50] VITALS: BP 89/56
[2018-04-16 03:10] VITALS: BP 98/65
[2018-04-16 05:35] LABS: BASO % 1 % (0-3); EOS # 0.1 x10^3/uL (0.0-0.7); EOS % 2 % (0-3); HEMATOCRIT 39.3 % (36.0-47.0); HEMOGLOBIN 12.8 g/dL (12.0-15.5); LYMPH # 2.4 x10^3/uL (1.0-4.8); LYMPH % 36 % (24-48); MEAN CORPUSCULAR HEMOGLOBIN 28 pg (25-35); MEAN CORPUSCULAR HGB CONC 33 g/dL (31-37); MEAN CORPUSCULAR VOLUME 86 fL (79-100); MONO # 0.6 x10^3/uL (0.0-1.1); MONO % 9 % (0-9); NEUT # 3.5 x10^3uL (1.8-7.7); NEUT % 52 % (31-73); PLATELET COUNT 285 x10^3/uL (140-400); RED BLOOD COUNT 4.55 x10^6/uL (3.50-5.40); RED CELL DISTRIBUTION WIDTH 13.4 % (11.5-14.5); WHITE BLOOD COUNT 6.7 x10^3/uL (4.0-11.0)
[2018-04-16 05:51] LABS: CALCIUM 8.6 mg/dL (8.5-10.1); CREATININE 0.7 mg/dL (0.6-1.0); GFR 89.7; POTASSIUM 3.5 mmol/L (3.5-5.1)
[2018-04-16 08:15] VITALS: BP 106/73
[2018-04-16 08:19] VITALS: BP 106/73
[2018-04-16] MEDS: CETIRIZINE HCL 10 MG TABLET. PO SCH (08:19)
[2018-04-16] MEDS: LOSARTAN POTASSIUM 25 MG TABLET. PO SCH (08:19)
[2018-04-16] MEDS: CITALOPRAM 10 MG TABLET. PO SCH (08:19)
[2018-04-16] MEDS: FERROUS SULFATE 325 MG TABLET. PO SCH (08:19)
[2018-04-16] MEDS: PANTOPRAZOLE 40 MG TABLET.DR. PO SCH (08:20)
--- NOTE | 2018-04-16 11:19 | PDOC ---
PROGRESS NOTES Chief Complaint Chief Complaint Chest pain GERD exacerbation Acute onset SOB Numbness/tingling b/l UE Hypertension Anemia NOS Anxiety History of Present Illness History of Present Illness Patient was seen and examined lying in bed this morning. She only speaks [place]. Appears to be doing well and has no complaints at this time. Cardiac workup is in progress, however, negative workup so far. GERD exacerbation is suspected. She is on a PPI. She will likely be ready for discharge later today if ok with cardiology. Discussed with RN. Vitals Vitals Vital Signs Date Time Temp Pulse Resp B/P (MAP) Pulse Ox O2 Delivery O2 Flow Rate FiO2 04/16/18 08:19 71 106/73 04/16/18 08:15 98.7 18 97 Room Air 98.7 Physical Exam General: Alert, Oriented X3, Cooperative, No acute distress Heart: Regular rate, Normal S1, Normal S2, No murmurs Lungs: Clear, Other (no rhonchi) Abdomen: Soft, No tenderness, Other Extremities: No clubbing, No cyanosis, No edema Skin: No rashes, No breakdown, No significant lesion Labs LABS Laboratory Tests Test 04/15/18 12:40 04/15/18 16:25 04/16/18 04:00 Troponin I Quantitative < 0.017 ng/mL (0.000-0.055) < 0.017 ng/mL (0.000-0.055) White Blood Count 6.7 x10^3/uL (4.0-11.0) Red Blood Count 4.55 x10^6/uL (3.50-5.40) Hemoglobin 12.8 g/dL (12.0-15.5) Hematocrit 39.3 % (36.0-47.0) Mean Corpuscular Volume 86 fL (79-100) Mean Corpuscular Hemoglobin 28 pg (25-35) Mean Corpuscular Hemoglobin Concent 33 g/dL (31-37) Red Cell Distribution Width 13.4 % (11.5-14.5) Platelet Count 285 x10^3/uL (140-400) Neutrophils (%) (Auto) 52 % (31-73) Lymphocytes (%) (Auto) 36 % (24-48) Monocytes (%) (Auto) 9 % (0-9) Eosinophils (%) (Auto) 2 % (0-3) Basophils (%) (Auto) 1 % (0-3) Neutrophils # (Auto) 3.5 x10^3uL (1.8-7.7) Lymphocytes # (Auto) 2.4 x10^3/uL (1.0-4.8) Monocytes # (Auto) 0.6 x10^3/uL (0.0-1.1) Eosinophils # (Auto) 0.1 x10^3/uL (0.0-0.7) Basophils # (Auto) 0.0 x10^3/uL (0.0-0.2) Sodium Level 141 mmol/L (136-145) Potassium Level 3.5 mmol/L (3.5-5.1) Chloride Level 104 mmol/L (98-107) Carbon Dioxide Level 27 mmol/L (21-32) Anion Gap 10 (6-14) Blood Urea Nitrogen 17 mg/dL (7-20) Creatinine 0.7 mg/dL (0.6-1.0) Estimated GFR (Cockcroft-Gault) 89.7 Glucose Level 94 mg/dL (70-99) Calcium Level 8.6 mg/dL (8.5-10.1) Review of Systems Review of Systems Complains of chest pain and shortness of breath. Denies fever or chills. Assessment and Plan Assessmemt and Plan Assessment: Chest pain GERD exacerbation Acute onset SOB Numbness/tingling b/l UE Hypertension Anemia NOS Anxiety Plan: 1. Cardiac monitoring 2. PPI 3. Monitor labs 4. Home medications 5. PT/OT 6. DVT prophylaxis 7. Probable discharge today if ok with cardiology Comment Review of Relevant I have reviewed the following items anthony (where applicable) has been applied. Labs Laboratory Tests Test 04/15/18 05:48 04/15/18 06:06 04/15/18 08:18 04/15/18 12:40 White Blood Count 6.9 x10^3/uL (4.0-11.0) Red Blood Count 4.57 x10^6/uL (3.50-5.40) Hemoglobin 13.1 g/dL (12.0-15.5) Hematocrit 39.6 % (36.0-47.0) Mean Corpuscular Volume 87 fL (79-100) Mean Corpuscular Hemoglobin 29 pg (25-35) Mean Corpuscular Hemoglobin Concent 33 g/dL (31-37) Red Cell Distribution Width 13.5 % (11.5-14.5) Platelet Count 294 x10^3/uL (140-400) Neutrophils (%) (Auto) 57 % (31-73) Lymphocytes (%) (Auto) 32 % (24-48) Monocytes (%) (Auto) 8 % (0-9) Eosinophils (%) (Auto) 2 % (0-3) Basophils (%) (Auto) 1 % (0-3) Neutrophils # (Auto) 3.9 x10^3uL (1.8-7.7) Lymphocytes # (Auto) 2.2 x10^3/uL (1.0-4.8) Monocytes # (Auto) 0.6 x10^3/uL (0.0-1.1) Eosinophils # (Auto) 0.1 x10^3/uL (0.0-0.7) Basophils # (Auto) 0.0 x10^3/uL (0.0-0.2) Prothrombin Time 12.2 SEC (11.7-14.0) Prothromb Time International Ratio 0.9 (0.8-1.1) D-Dimer (Sachi) 0.84 ug/mlFEU (0.00-0.50) Maternal Serum HCG Beta Subunit 2 mIU/mL (0-5) Sodium Level 142 mmol/L (136-145) Potassium Level 3.8 mmol/L (3.5-5.1) Chloride Level 104 mmol/L (98-107) Carbon Dioxide Level 26 mmol/L (21-32) Anion Gap 12 (6-14) Blood Urea Nitrogen 12 mg/dL (7-20) Creatinine 0.6 mg/dL (0.6-1.0) Estimated GFR (Cockcroft-Gault) 107.2 BUN/Creatinine Ratio 20 (6-20) Glucose Level 91 mg/dL (70-99) Calcium Level 9.4 mg/dL (8.5-10.1) Magnesium Level 2.0 mg/dL (1.8-2.4) Total Bilirubin 0.8 mg/dL (0.2-1.0) Aspartate Amino Transf (AST/SGOT) 30 U/L (15-37) Alanine Aminotransferase (ALT/SGPT) 25 U/L (14-59) Alkaline Phosphatase 73 U/L (46-116) Troponin I Quantitative < 0.017 ng/mL (0.000-0.055) < 0.017 ng/mL (0.000-0.055) WC-Nmm-H-Type Natriuretic Peptide < 5 pg/mL (0-124) Total Protein 7.7 g/dL (6.4-8.2) Albumin 3.4 g/dL (3.4-5.0) Albumin/Globulin Ratio 0.8 (1.0-1.7) Triglycerides Level 151 mg/dL (0-150) Cholesterol Level 209 mg/dL (0-200) LDL Cholesterol, Calculated 138 mg/dL (0-100) VLDL Cholesterol, Calculated 30 mg/dL (0-40) Non-HDL Cholesterol Calculated 168 mg/dL (0-129) HDL Cholesterol 41 mg/dL (40-60) Cholesterol/HDL Ratio 5.1 Lipase 124 U/L (73-393) Urine Collection Type Unknown Urine Color Yellow Urine Clarity Clear Urine pH 6.0 Urine Specific [place] 1.010 Urine Protein Negative mg/dL (NEG-TRACE) Urine Glucose (UA) Negative mg/dL (NEG) Urine Ketones (Stick) Negative mg/dL (NEG) Urine Blood Small (NEG) Urine Nitrite Negative (NEG) Urine Bilirubin Negative (NEG) Urine Urobilinogen Dipstick 0.2 mg/dL (0.2 mg/dL) Urine Leukocyte Esterase Small (NEG) Urine RBC 3-5 /HPF (0-2) Urine WBC 1-4 /HPF (0-4) Urine Squamous Epithelial Cells Mod /LPF Urine Bacteria Few /HPF (0-FEW) Influenza Type A Antigen Negative (NEGATIVE) Influenza Type B Antigen Negative (NEGATIVE) Test 04/15/18 16:25 04/16/18 04:00 Troponin I Quantitative < 0.017 ng/mL (0.000-0.055) White Blood Count 6.7 x10^3/uL (4.0-11.0) Red Blood Count 4.55 x10^6/uL (3.50-5.40) Hemoglobin 12.8 g/dL (12.0-15.5) Hematocrit 39.3 % (36.0-47.0) Mean Corpuscular Volume 86 fL (79-100) Mean Corpuscular Hemoglobin 28 pg (25-35) Mean Corpuscular Hemoglobin Concent 33 g/dL (31-37) Red Cell Distribution Width 13.4 % (11.5-14.5) Platelet Count 285 x10^3/uL (140-400) Neutrophils (%) (Auto) 52 % (31-73) Lymphocytes (%) (Auto) 36 % (24-48) Monocytes (%) (Auto) 9 % (0-9) Eosinophils (%) (Auto) 2 % (0-3) Basophils (%) (Auto) 1 % (0-3) Neutrophils # (Auto) 3.5 x10^3uL (1.8-7.7) Lymphocytes # (Auto) 2.4 x10^3/uL (1.0-4.8) Monocytes # (Auto) 0.6 x10^3/uL (0.0-1.1) Eosinophils # (Auto) 0.1 x10^3/uL (0.0-0.7) Basophils # (Auto) 0.0 x10^3/uL (0.0-0.2) Sodium Level 141 mmol/L (136-145) Potassium Level 3.5 mmol/L (3.5-5.1) Chloride Level 104 mmol/L (98-107) Carbon Dioxide Level 27 mmol/L (21-32) Anion Gap 10 (6-14) Blood Urea Nitrogen 17 mg/dL (7-20) Creatinine 0.7 mg/dL (0.6-1.0) Estimated GFR (Cockcroft-Gault) 89.7 Glucose Level 94 mg/dL (70-99) Calcium Level 8.6 mg/dL (8.5-10.1) Laboratory Tests Test 04/15/18 12:40 04/15/18 16:25 04/16/18 04:00 Troponin I Quantitative < 0.017 ng/mL (0.000-0.055) < 0.017 ng/mL (0.000-0.055) White Blood Count 6.7 x10^3/uL (4.0-11.0) Red Blood Count 4.55 x10^6/uL (3.50-5.40) Hemoglobin 12.8 g/dL (12.0-15.5) Hematocrit 39.3 % (36.0-47.0) Mean Corpuscular Volume 86 fL (79-100) Mean Corpuscular Hemoglobin 28 pg (25-35) Mean Corpuscular Hemoglobin Concent 33 g/dL (31-37) Red Cell Distribution Width 13.4 % (11.5-14.5) Platelet Count 285 x10^3/uL (140-400) Neutrophils (%) (Auto) 52 % (31-73) Lymphocytes (%) (Auto) 36 % (24-48) Monocytes (%) (Auto) 9 % (0-9) Eosinophils (%) (Auto) 2 % (0-3) Basophils (%) (Auto) 1 % (0-3) Neutrophils # (Auto) 3.5 x10^3uL (1.8-7.7) Lymphocytes # (Auto) 2.4 x10^3/uL (1.0-4.8) Monocytes # (Auto) 0.6 x10^3/uL (0.0-1.1) Eosinophils # (Auto) 0.1 x10^3/uL (0.0-0.7) Basophils # (Auto) 0.0 x10^3/uL (0.0-0.2) Sodium Level 141 mmol/L (136-145) Potassium Level 3.5 mmol/L (3.5-5.1) Chloride Level 104 mmol/L (98-107) Carbon Dioxide Level 27 mmol/L (21-32) Anion Gap 10 (6-14) Blood Urea Nitrogen 17 mg/dL (7-20) Creatinine 0.7 mg/dL (0.6-1.0) Estimated GFR (Cockcroft-Gault) 89.7 Glucose Level 94 mg/dL (70-99) Calcium Level 8.6 mg/dL (8.5-10.1) Medications Current Medications Aspirin (Children'S Aspirin) 324 mg 1X ONCE PO Last administered on 04/15/18at 05:55; Start 04/15/18 at 06:00; Stop 04/15/18 at 06:01; Status DC Multi-Ingredient Mouthwash/Gargle (Gi Cocktail) 20 ml 1X ONCE SWSW Last administered on 04/15/18at 05:56; Start 04/15/18 at 06:00; Stop 04/15/18 at 06:01 ; Status DC Iohexol (Omnipaque 350 Mg/ml) 100 ml 1X ONCE IV ; Start 04/15/18 at 08:15; Stop 04/15/18 at 08:17; Status DC Info (CONTRAST GIVEN -- Rx MONITORING) 1 each PRN DAILY PRN MC SEE COMMENTS; Start 04/15/18 at 08:30; Stop 04/17/18 at 08:29 Ondansetron HCl (Zofran) 4 mg PRN Q8HRS PRN IV NAUSEA/VOMITING; Start 04/15/18 at 09:30; Stop 04/15/18 at 10:22; Status DC Morphine Sulfate (Morphine Sulfate) 2 mg PRN Q2HR PRN IV PAIN Last administered on 04/15/18at 10:13; Start 04/15/18 at 09:30; Stop 04/16/18 at 09:29 ; Status DC Ondansetron HCl (Zofran) 4 mg PRN Q6HRS PRN IV NAUSEA/VOMITING; Start 04/15/18 at 10:30 Acetaminophen (Tylenol) 500 mg PRN Q6HRS PRN PO MILD PAIN / TEMP; Start at 10:30 Acetaminophen/ Codeine Phosphate (Tylenol #3) 1 tab PRN Q6HRS PRN PO MODERATE PAIN; Start 04/15/18 at 10:30 Multi-Ingredient Mouthwash/Gargle (Gi Cocktail) 20 ml PRN QID PRN PO CHEST PAIN Last administered on 04/15/18at 21:05; Start 04/15/18 at 10:30 Cetirizine HCl (ZyrTEC) 10 mg DAILY PO Last administered on 04/16/18at 08:19; Start 04/15/18 at 11:00 Citalopram Hydrobromide (CeleXA) 10 mg DAILY PO Last administered on 04/16/18at 08:19; Start 04/15/18 at 11:00 Ferrous Sulfate (Feosol) 325 mg BIDWMEALS PO Last administered on 04/16/18at 08: 19; Start 04/15/18 at 17:00 Losartan Potassium (Cozaar) 25 mg DAILY PO Last administered on 04/16/18at 08:19 ; Start 04/15/18 at 11:00 Fluticasone Propionate (Flonase) 2 spray DAILY NS Last administered on at 14:04; Start 04/15/18 at 11:00 Naproxen (Naprosyn) 500 mg BID PO ; Start 04/15/18 at 10:30; Stop 04/15/18 at 14 :05; Status DC Pantoprazole Sodium (Protonix) 40 mg DAILYAC PO Last administered on 04/16/18at 08:20; Start 04/15/18 at 11:30 Active Scripts Active [Pantoprazole] 40 MG Tablet.dr 40 Mg PO BIDAC 30 Days Naprosyn (Naproxen) 500 Mg Tablet 500 Mg PO BID 10 Days Cozaar (Losartan Potassium) 25 Mg Tablet 25 Mg PO DAILY 30 Days Feosol (Ferrous Sulfate) 325 Mg Tablet 325 Mg PO BIDWMEALS 30 Days Reported Flonase Allergy Relief (Fluticasone Propionate) 9.9 Ml [place].susp 2 Sprays NS DAILY Cetirizine Hcl 10 Mg Tablet 10 Mg PO DAILY Citalopram Hbr (Citalopram Hydrobromide) 10 Mg Tablet 10 Mg PO DAILY Vitals/I & O Vital Sign - Last 24 Hours 04/15/18 04/15/18 04/15/18 04/15/18 12:00 16:00 19:30 20:30 Temp 98.8 98.5 98.1 98.8 98.5 98.1 Pulse 68 81 75 Resp 14 12 18 B/P (MAP) 114/76 (89) 116/74 (88) 98/69 (79) Pulse Ox 97 97 96 O2 Delivery Room Air Room Air Room Air Room Air 04/15/18 04/16/18 04/16/18 04/16/18 23:50 03:10 08:00 08:15 Temp 97.5 97.8 98.7 97.5 97.8 98.7 Pulse 77 69 71 Resp 18 17 18 B/P (MAP) 89/56 (67) 98/65 (76) 106/73 (84) Pulse Ox 95 96 97 O2 Delivery Room Air Room Air Room Air Room Air 04/16/18 08:19 Pulse 71 B/P (MAP) 106/73 Intake and Output 04/15/18 04/15/18 04/16/18 14:59 22:59 06:59 Intake Total 0 ml 240 ml Output Total 0 ml 200 ml Balance 0 ml 40 ml SUSAN CISNEROS III DO Apr 16, 2018 11:19
--- NOTE | 2018-04-16 12:00 | NUR ---
Discussed discharge plans and discharge diagnosis with patient using the grinding room inspector line since patient did not speak [place], only spoke [place]. Patient states understanding with discharge plan and follow-up with primary care provider. Informed her that the discharge diagnosis of Reflux can be treated with over the counter medication and suggested Omeprazole.
--- NOTE | 2018-04-16 12:20 | NUR ---
Patient discharged home. Accompanied by son and HONEY BLENDER to private vehicle. Discharge instructions and personal belongings with patient.
--- NOTE | 2018-04-16 14:35 | DS ---
DATE OF DISCHARGE: 04/16/2018 ADMISSION DIAGNOSIS: Chest pain. DISCHARGE DIAGNOSES: Atypical chest pain, suspect gastroesophageal reflux disease. HOSPITAL COURSE: The patient is a pleasant 47-year-old female who presented with chest pain. She was admitted. We checked serial enzymes and serial EKGs. We consulted Cardiology. So far, her workup is negative. We also consulted GI. It was felt that her pain is likely GERD. This morning, her heart tones are normal. Her lungs were clear. We will plan to discharge with close outpatient followup. DISPOSITION: Home. ACTIVITY: As tolerated. DIET: Low sodium. MEDICATIONS: Please see the MRAD. TOTAL TIME: 33 minutes. SUSAN CISNEROS DO DR: MEERA/grace JOB#: [id number] / [id number]
--- NOTE | 2018-04-18 15:09 | EKG ---
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
--- NOTE | 2018-04-18 15:10 | EKG ---
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
== END 2018-04-16 12:20 | disposition home or self-care (01) | DRG 392 ==
LOC: ER 05:16 → 1 WEST ICU 06:10 → OBSVTOIN 06:11 → 2 NORTH 18:55 → 1 WEST ICU 18:55 → UNDODISOB 04-16 12:20
PROVIDERS: ADMIT Internal Medicine; ATTEND Internal Medicine
DX: K21.0 Gastro-esophageal reflux disease with esophagitis (principal); D64.9 Anemia, unspecified; E78.00 Pure hypercholesterolemia, unspecified; F41.9 Anxiety disorder, unspecified; R07.89 Other chest pain; E78.5 Hyperlipidemia, unspecified; I10 Essential (primary) hypertension; K76.0 Fatty (change of) liver, not elsewhere classified; Z79.1 Long term (current) use of non-steroidal anti-inflammatories (NSAID); Z87.442 Personal history of urinary calculi; Z86.11 Personal history of tuberculosis; Z87.440 Personal history of urinary (tract) infections; Z79.899 Other long term (current) drug therapy; Z90.49 Acquired absence of other specified parts of digestive tract
CPT/HCPCS: 36415; 70551; 71045; 71275; 80048; 80053; 80061; 81001; 83690; 83735; 83880; 84484; 84702; 85025; 85379; 85610; 87086; 87641; 87804; 93005; 93306; G0378; G0379; J2270

== ENCOUNTER 2019-11-18 16:18 | Emergency (ER) | payer OTHER ==
[~2019-11-18] VITALS: Ht 162.6 cm; Wt 72.7 kg
[~2019-11-18 16:18] MED LIST changes: +CETI10TA16 PO; +CITA10TA4 PO; +FLUT9.9S NS; -POTA20TA82 PO
--- NOTE | 2019-11-18 16:53 | PHYS DOC ---
Past Medical History Past Medical History: High Cholesterol, Hypertension, Kidney Stone, UTI, Other Additional Past Medical Histor: "Stomach", possibly acid reflux, (JESSICA RICHTER DO) Past Surgical History: Other Additional Past Surgical Histo: KIDNEY STONES (JESSICA RICHTER DO) Smoking Status: Never Smoker Alcohol Use: None Drug Use: None (JESSICA RICHTER DO) General Adult EDM: Chief Complaint: DIZZY/LIGHT HEADED HPI: HPI: The history was obtained from the patient. Patient is a 49-year-old female with past medical history notable for hypertension who presents with a chief complaint of epigastric abdominal discomfort. [employer] services used. Patient states she has had intermittent epigastric abdominal discomfort for the past month. States pain is burning in nature and seems to be made worse with food. She has been trying Zofran at home with minimal relief. She denies any chest pain or shortness of breath. Denies syncope. She does note some occasional lightheadedness. Denies headache. Denies vertiginous symptoms. Denies any abdominal surgical history. Denies any tobacco or alcohol abuse. States the pain is nonradiating. Denies any drug abuse. No other complaints. (JESSICA RICHTER DO) Review of Systems: Review of Systems: Constitutional: Denies fever or chills. [] Eyes: Denies change in visual acuity. [] HENT: Denies nasal congestion or sore throat. [] Respiratory: Denies cough or shortness of breath. [] Cardiovascular: Denies chest pain or edema. [] GI: Positive for abdominal pain and nausea : Denies dysuria. [] Musculoskeletal: Denies back pain or joint pain. [] Integument: Denies rash. [] Neurologic: Denies headache, focal weakness or sensory changes. [] Endocrine: Denies polyuria or polydipsia. [] Lymphatic: Denies swollen glands. [] Psychiatric: Denies depression or anxiety. [] (JESSICA RICHTER DO) Heart Score: Risk Factors: Risk Factors: DM, Current or recent (<one month) smoker, HTN, HLP, family history of CAD, obesity. Risk Scores: Score 0 - 3: 2.5% MACE over next 6 weeks - Discharge Home Score 4 - 6: 20.3% MACE over next 6 weeks - Admit for Clinical Observation Score 7 - 10: 72.7% MACE over next 6 weeks - Early Invasive Strategies (JESSICA RICHTER DO) Allergies: Allergies: Allergies Coded Allergies Type Severity Reaction Last Updated Verified No Known Medication Allergies Allergy Unknown 08/13/17 Yes (JESSICA RICHTER DO) Physical Exam: PE: Constitutional: Well developed, well nourished, no acute distress, non-toxic appearance. [] HENT: Normocephalic, atraumatic, bilateral external ears normal, oropharynx moist, no oral exudates, nose normal. [] Eyes: PERRLA, EOMI, conjunctiva normal, no discharge. [] Neck: Normal range of motion, no tenderness, supple, no stridor. [] Cardiovascular:Heart rate regular rhythm, no murmur [] Lungs & Thorax: Bilateral breath sounds clear to auscultation [] Abdomen: Mild reproducible epigastric tenderness to palpation. No involuntary guarding or rigidity noted. No acute peritonitis. Skin: Warm, dry, no erythema, no rash. [] Back: No tenderness, no CVA tenderness. [] Extremities: No tenderness, no cyanosis, no clubbing, ROM intact, no edema. [] Neurologic: Alert and oriented X 3, normal motor function, normal sensory function, no focal deficits noted. [] Psychologic: Affect normal, judgement normal, mood normal. [] (JESSICA RICHTER DO) Current Patient Data: Labs: Laboratory Tests Test 11/18/19 16:49 White Blood Count 8.3 x10^3/uL Red Blood Count 4.81 x10^6/uL Hemoglobin 14.8 g/dL Hematocrit 43.0 % Mean Corpuscular Volume 89 fL Mean Corpuscular Hemoglobin 31 pg Mean Corpuscular Hemoglobin Concent 34 g/dL Red Cell Distribution Width 12.8 % Platelet Count 273 x10^3/uL Neutrophils (%) (Auto) 55 % Lymphocytes (%) (Auto) 35 % Monocytes (%) (Auto) 8 % Eosinophils (%) (Auto) 2 % Basophils (%) (Auto) 1 % Neutrophils # (Auto) 4.6 x10^3/uL Lymphocytes # (Auto) 2.9 x10^3/uL Monocytes # (Auto) 0.7 x10^3/uL Eosinophils # (Auto) 0.1 x10^3/uL Basophils # (Auto) 0.1 x10^3/uL Sodium Level 141 mmol/L Potassium Level 3.4 mmol/L Chloride Level 106 mmol/L Carbon Dioxide Level 29 mmol/L Anion Gap 6 Blood Urea Nitrogen 13 mg/dL Creatinine 0.7 mg/dL Estimated GFR (Cockcroft-Gault) 88.9 BUN/Creatinine Ratio 19 Glucose Level 109 mg/dL Calcium Level 9.1 mg/dL Total Bilirubin Pending Aspartate Amino Transf (AST/SGOT) Pending Alanine Aminotransferase (ALT/SGPT) Pending Alkaline Phosphatase Pending Total Protein Pending Albumin Pending Albumin/Globulin Ratio Pending Lipase 108 U/L Current Medications Medications (Trade) Dose Ordered Sig/Celsa Route PRN Reason Start Time Stop Time Status Last Admin Dose Admin Famotidine (Pepcid Vial) 20 mg 1X ONCE IVP 11/18/19 17:00 11/18/19 17:01 DC Pantoprazole Sodium (PROTONIX VIAL for IV PUSH) 40 mg 1X ONCE IVP 11/18/19 17:00 11/18/19 17:01 DC Ondansetron HCl (Zofran) 4 mg 1X ONCE IVP 11/18/19 17:00 11/18/19 17:01 DC Dicyclomine HCl (Bentyl) 20 mg 1X ONCE IM 11/18/19 17:00 11/18/19 17:01 DC Vital Signs: Vital Signs Date Time Temp Pulse Resp B/P (MAP) Pulse Ox O2 Delivery O2 Flow Rate FiO2 11/18/19 16:52 98.3 74 18 137/81 (99) 100 Room Air 98.3 (JESSICA RICHTER DO) EKG: EKG: EKG consistent with normal sinus rhythm. Ventricular rate of 68 bpm. Left axis noted. No acute ischemic changes noted. Intervals normal. [] (JESSICA RICHTER DO) Radiology/Procedures: Radiology/Procedures: [facility] [address] [place] [address] IMAGING REPORT Signed PATIENT: HAYLEY HARDY ACCOUNT: [id number] : 1970 LOCATION: ER AGE: 49 SEX: F EXAM STATUS: REG ER ORD. PHYSICIAN: JESSICA RICHTER DO REASON: CP PROCEDURE: CHEST AP ONLY CHEST AP ONLY Clinical indications: Chest pain COMPARISON: October 22, 2018. Findings: No acute lung infiltrate or pleural effusion or pulmonary edema or lung mass or pneumothorax is seen. The heart size, pulmonary vasculature, mediastinum and both gera are stable. Impression: No acute radiographic abnormality is seen. Electronically signed by: Patricia Jenkins MD (11/18/2019 5:38 PM) [id number] DICTATED and SIGNED BY: PATRICIA JENKINS MD DATE: 11/18/19 173 [] (JESSICA RICHTER DO) Course & Med Decision Making: Course & Med Decision Making Pertinent Labs and Imaging studies reviewed. (See chart for details) [] Patient is a 49-year-old female who presents with chief complaint of intermittent epigastric abdominal discomfort associate with nausea over the past month. She states she is been trying Zofran with minimal relief. Initial vital signs unremarkable. EKG was obtained given she did report some lightheadedness. This was unremarkable. Labs of been obtained and overall been reassuring. CBC without leukocytosis. Chemistry panel without elevated lipase or transaminitis. Troponin was obtained given her reported lightheadedness this was also negative. Patient is PERC negative. Low suspicion for anginal equivalent or ACS. At this time CT imaging is pending. I have signed out the patient's emergency department care to Dr. Gerard. We discussed the history, physical exam findings, completed and pending laboratory results and imaging studies. We have also discussed the current treatment plan and expected clinical course. Please refer to chart for the patient's remaining emergency department course, final disposition, and clinical impression(s). (JESSICA RICHTER DO) Course & Med Decision Making Assumed care of patient at checkout. At checkout CT abdomen pelvis is pending. Patient has biliary stones without signs of cholecystitis. She likely has biliary colic. Results were discussed with patient. She can follow-up with surgery. She is feeling much better. Patient's test results and vitals while in the ED were fully reviewed and discussed with the patient. Patient is stable and at this time does not need admission to the hospital. We have discussed strict return precautions and the importance of following up with their Primary Care Physician. Patient stated understanding and was given an opportunity to ask any questions. Patient is in agreement with plan. (STEPHEN GERARD MD) Dragon Disclaimer: Dragon Disclaimer: This electronic medical record was generated, in whole or in part, using a voice recognition dictation system. (JESSICA RICHTER DO) Departure Departure Impression: Primary Impression: Abdominal pain Qualified Codes: R10.13 - Epigastric pain Additional Impression: Nausea Disposition: HOME, SELF-CARE Condition: STABLE Referrals: ALYSSA ROMANO MD (PCP) MAYURI OLVERA MD Patient Instructions: Biliary Colic Justicifation of Admission Dx: Justifications for Admission: Justification of Admission Dx: N/A (JESSICA RICHTER DO) Justification of Admission Dx: N/A (STEPHEN GERARD MD) JESSICA RICHTER DO Nov 18, 2019 16:53 STEPHEN GERARD MD Nov 18, 2019 18:50
[2019-11-18 16:56] LABS: BASO # 0.1 x10^3/uL (0.0-0.2); BASO % 1 % (0-3); EOS # 0.1 x10^3/uL (0.0-0.7); EOS % 2 % (0-3); HEMOGLOBIN 14.8 g/dL (12.0-15.5); LYMPH # 2.9 x10^3/uL (1.0-4.8); LYMPH % 35 % (24-48); MEAN CORPUSCULAR HEMOGLOBIN 31 pg (25-35); MEAN CORPUSCULAR HGB CONC 34 g/dL (31-37); MEAN CORPUSCULAR VOLUME 89 fL (79-100); MONO # 0.7 x10^3/uL (0.0-1.1); MONO % 8 % (0-9); NEUT # 4.6 x10^3/uL (1.8-7.7); NEUT % 55 % (31-73); PLATELET COUNT 273 x10^3/uL (140-400); RED BLOOD COUNT 4.81 x10^6/uL (3.50-5.40); RED CELL DISTRIBUTION WIDTH 12.8 % (11.5-14.5); WHITE BLOOD COUNT 8.3 x10^3/uL (4.0-11.0)
[2019-11-18] MEDS ORDERED: ONDANSETRON PF 4 MG/2 ML VIAL. IVP ONE (17:00)
[2019-11-18] MEDS ORDERED: PANTOPRAZOLE IV PUSH 40 MG VIAL. IVP ONE (17:00)
[2019-11-18] MEDS ORDERED: DICYCLOMINE 20 MG/2 ML VIAL. IM ONE (17:00)
[2019-11-18] MEDS ORDERED: FAMOTIDINE 20 MG/2 ML VIAL IVP ONE (17:00)
[2019-11-18 17:05] LABS: CALCIUM 9.1 mg/dL (8.5-10.1); CREATININE 0.7 mg/dL (0.6-1.0); GFR 88.9; POTASSIUM 3.4 mmol/L (3.5-5.1)
[2019-11-18 17:11] LABS: ALBUMIN 3.7 g/dL (3.4-5.0); TOTAL BILIRUBIN 0.4 mg/dL (0.2-1.0); TOTAL PROTEIN 7.5 g/dL (6.4-8.2)
[2019-11-18] MEDS ORDERED: CONTRAST GIVEN. MC PRN (17:15)
[2019-11-18] MEDS ORDERED: IOHEXOL 300 MG/ML 100ML VIAL. IV ONE (17:15)
--- NOTE | 2019-11-18 17:41 | RAD ---
CHEST AP ONLY Clinical indications: Chest pain COMPARISON: October 22, 2018. Findings: No acute lung infiltrate or pleural effusion or pulmonary edema or lung mass or pneumothorax is seen. The heart size, pulmonary vasculature, mediastinum and both gera are stable. Impression: No acute radiographic abnormality is seen. Electronically signed by: Chente Jenkins MD (11/18/2019 5:38 PM) [id number]
--- NOTE | 2019-11-18 18:11 | RAD ---
CT scan of the abdomen and pelvis with contrast 11/18/2019 CLINICAL HISTORY: Epigastric pain for one month. TECHNIQUE: After the intravenous administration of 75 cc of Omnipaque 300 only, contiguous, 5 mm axial sections were obtained through the abdomen and pelvis. One or more of the following individualized dose reduction techniques were utilized for this study: 1. Automated exposure control. 2. Adjustment of the mA and/or kV according to patient size. 3. Use of iterative reconstruction technique. FINDINGS: Images through the lung bases demonstrate minimal dependent subsegmental atelectasis bilaterally. The liver parenchyma has a decreased attenuation consistent with fatty infiltration. The spleen, pancreas, adrenal glands and kidneys are within normal limits. Atherosclerotic calcification abdominal aorta is seen. The abdominal aorta tapers normally. The gallbladder is contracted. Small calcified gallstone is seen within the gallbladder. No free fluid or free air is seen within the abdomen. Air and stool are seen throughout the colon. There is no evidence of bowel obstruction. The appendix is well-visualized and is within normal limits. Images through the pelvis demonstrate the urinary bladder distended with urine. Calcifications are seen within the pelvis consistent with phleboliths. No free fluid is seen. Minimal S-shaped curvature of the thoracolumbar spine is seen. Degenerative changes are seen involving the mid and lower lumbar spine along with both hips. IMPRESSION: 1. Cholelithiasis. 2. No acute abnormality is seen. Electronically signed by: Burak Root MD (11/18/2019 6:09 PM) [id number]
[2019-11-18 18:30] VITALS: BP 132/83
--- NOTE | 2019-11-20 08:17 | EKG ---
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
== END 2019-11-18 19:07 | disposition home or self-care (01) ==
LOC: ER 16:18
DX: R10.13 Epigastric pain (principal); R11.0 Nausea; R42 Dizziness and giddiness; E78.00 Pure hypercholesterolemia, unspecified; I10 Essential (primary) hypertension; Z98.890 Other specified postprocedural states; Z87.442 Personal history of urinary calculi
CPT/HCPCS: 36415; 71045; 74177; 80053; 83690; 84484; 84702; 85025; 93005; 96372; 96374; 96375; 99285; C9113; J0500; J2405; J3490; Q9967

== ENCOUNTER 2020-07-01 19:04 | Emergency (ER) | payer OTHER ==
[~2020-07-01] VITALS: Ht 162.6 cm; Wt 109.0 kg
[~2020-07-01 19:04] MED LIST changes: -CIPR500T PO; +CIPR500T2 PO
[2020-07-01] MEDS ORDERED: LIDO:MAALOX 1:1 20 ML SINGLE DOSE. SWSW ONE (19:15)
[2020-07-01] MEDS ORDERED: FAMOTIDINE 20 MG/2 ML VIAL IVP ONE (19:15)
--- NOTE | 2020-07-01 19:26 | EKG ---
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
[2020-07-01 19:32] LABS: BASO # 0.1 x10^3/uL (0.0-0.2); BASO % 1 % (0-3); EOS # 0.1 x10^3/uL (0.0-0.7); EOS % 1 % (0-3); HEMATOCRIT 42.6 % (36.0-47.0); HEMOGLOBIN 14.6 g/dL (12.0-15.5); LYMPH # 3.5 x10^3/uL (1.0-4.8); LYMPH % 37 % (24-48); MEAN CORPUSCULAR HEMOGLOBIN 31 pg (25-35); MEAN CORPUSCULAR HGB CONC 34 g/dL (31-37); MEAN CORPUSCULAR VOLUME 90 fL (79-100); MONO # 0.7 x10^3/uL (0.0-1.1); MONO % 8 % (0-9); NEUT # 5.1 x10^3/uL (1.8-7.7); NEUT % 54 % (31-73); PLATELET COUNT 268 x10^3/uL (140-400); RED BLOOD COUNT 4.76 x10^6/uL (3.50-5.40); WHITE BLOOD COUNT 9.5 x10^3/uL (4.0-11.0)
[2020-07-01 19:44] LABS: CALCIUM 8.8 mg/dL (8.5-10.1); CREATININE 0.9 mg/dL (0.6-1.0); GFR 66.5; POTASSIUM 3.2 mmol/L (3.5-5.1)
[2020-07-01 19:47] LABS: ALBUMIN 4.2 g/dL (3.4-5.0); ALBUMIN/GLOBULIN RATIO 1.2 (1.0-1.7); TOTAL BILIRUBIN 0.4 mg/dL (0.2-1.0); TOTAL PROTEIN 7.7 g/dL (6.4-8.2)
--- NOTE | 2020-07-01 20:02 | RAD ---
Exam: Chest one view INDICATION: Chest pain TECHNIQUE: Frontal view of the chest Comparisons: 11/18/2019 FINDINGS: The cardiomediastinal silhouette and pulmonary vessels are within normal limits. The lung and pleural spaces are clear. IMPRESSION: No acute cardiopulmonary process. Electronically signed by: Candida Fuchs MD (07/01/2020 7:59 PM) SANDOVAL
--- NOTE | 2020-07-01 20:36 | EKG ---
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
[2020-07-01] MEDS ORDERED: POTASSIUM CHLORIDE 10 MEQ TABLET.ER. PO ONE (20:45)
[2020-07-01] MEDS ORDERED: OMEP20TA63 PO (21:07)
[2020-07-01] MEDS ORDERED: SUCR1TAB35 PO (21:07)
--- NOTE | 2020-07-01 21:07 | PHYS DOC ---
Past Medical History Past Medical History: GERD, High Cholesterol, Hypertension, Kidney Stone, UTI, Other Additional Past Medical Histor: "Stomach", possibly acid reflux, Past Surgical History: Other Additional Past Surgical Histo: KIDNEY STONES Smoking Status: Never Smoker Alcohol Use: None Drug Use: None General Adult EDM: Chief Complaint: CHEST PAIN-CARDIAC NATURE HPI: HPI: Patient is a 49 year old male who presented to ER today for evaluation of epigastric abdominal pain that radiated into esophagus area. Patient described the pain at burning sensation. Patient had this pain off and on for over 2 years.. Patient denies any nausea vomiting, denies any history of diabetic, denies any history of coronary ARTERY disease. Patient denies any cough or fever. Patient has history of acid reflux in the past. Patient denies any trouble breathing. Review of Systems: Review of Systems: Constitutional: Denies fever or chills. [] Eyes: Denies change in visual acuity. [] HENT: Denies nasal congestion or sore throat. [] Respiratory: Denies cough or shortness of breath. [] Cardiovascular: Denies chest pain or edema. [] GI: Positive for abdominal pain radiating to her esophagus area, no nausea vomiting, no diarrhea : Denies dysuria. [] Musculoskeletal: Denies back pain or joint pain. [] Integument: Denies rash. [] Neurologic: Denies headache, focal weakness or sensory changes. [] Endocrine: Denies polyuria or polydipsia. [] Lymphatic: Denies swollen glands. [] Psychiatric: Denies depression or anxiety. [] Heart Score: C/O Chest Pain: N/A Risk Factors: Risk Factors: DM, Current or recent (<one month) smoker, HTN, HLP, family history of CAD, obesity. Risk Scores: Score 0 - 3: 2.5% MACE over next 6 weeks - Discharge Home Score 4 - 6: 20.3% MACE over next 6 weeks - Admit for Clinical Observation Score 7 - 10: 72.7% MACE over next 6 weeks - Early Invasive Strategies Current Medications: Current Medications Medications (Trade) Dose Ordered Sig/Celsa Start Time Stop Time Status Last Admin Dose Admin Famotidine (Pepcid Vial) 20 mg 1X ONCE 07/01/20 19:15 07/01/20 19:16 DC 07/01/20 19:29 20 MG Multi-Ingredient Mouthwash/Gargle (Gi Cocktail) 20 ml 1X ONCE 07/01/20 19:15 07/01/20 19:16 DC 07/01/20 19:29 20 ML Potassium Chloride (Klor-Con) 30 meq 1X ONCE 07/01/20 20:45 07/01/20 20:46 DC Allergies: Allergies: Allergies Coded Allergies Type Severity Reaction Last Updated Verified No Known Medication Allergies Allergy Unknown 08/13/17 Yes Physical Exam: PE: Constitutional: Well developed, well nourished, no acute distress, non-toxic appearance. [] HENT: Normocephalic, atraumatic, bilateral external ears normal, oropharynx moist, no oral exudates, nose normal. [] Eyes: PERRLA, EOMI, conjunctiva normal, no discharge. [] Neck: Normal range of motion, no tenderness, supple, no stridor. [] Cardiovascular:Heart rate regular rhythm, no murmur [] Lungs & Thorax: Bilateral breath sounds clear to auscultation [] Abdomen: Bowel sounds normal, soft, THERE IS tenderness TO PALPATION IN EPIGASTRIC AREA, no masses, no pulsatile masses. [] Skin: Warm, dry, no erythema, no rash. [] Back: No tenderness, no CVA tenderness. [] Extremities: No tenderness, no cyanosis, no clubbing, ROM intact, no edema. [] Neurologic: Alert and oriented X 3, normal motor function, normal sensory function, no focal deficits noted. [] Psychologic: Affect normal, judgement normal, mood normal. [] Current Patient Data: Labs: Laboratory Tests Test 07/01/20 19:20 White Blood Count 9.5 x10^3/uL (4.0-11.0) Red Blood Count 4.76 x10^6/uL (3.50-5.40) Hemoglobin 14.6 g/dL (12.0-15.5) Hematocrit 42.6 % (36.0-47.0) Mean Corpuscular Volume 90 fL (79-100) Mean Corpuscular Hemoglobin 31 pg (25-35) Mean Corpuscular Hemoglobin Concent 34 g/dL (31-37) Red Cell Distribution Width 13.0 % (11.5-14.5) Platelet Count 268 x10^3/uL (140-400) Neutrophils (%) (Auto) 54 % (31-73) Lymphocytes (%) (Auto) 37 % (24-48) Monocytes (%) (Auto) 8 % (0-9) Eosinophils (%) (Auto) 1 % (0-3) Basophils (%) (Auto) 1 % (0-3) Neutrophils # (Auto) 5.1 x10^3/uL (1.8-7.7) Lymphocytes # (Auto) 3.5 x10^3/uL (1.0-4.8) Monocytes # (Auto) 0.7 x10^3/uL (0.0-1.1) Eosinophils # (Auto) 0.1 x10^3/uL (0.0-0.7) Basophils # (Auto) 0.1 x10^3/uL (0.0-0.2) Sodium Level 144 mmol/L (136-145) Potassium Level 3.2 mmol/L (3.5-5.1) L Chloride Level 107 mmol/L (98-107) Carbon Dioxide Level 26 mmol/L (21-32) Anion Gap 11 (6-14) Blood Urea Nitrogen 16 mg/dL (7-20) Creatinine 0.9 mg/dL (0.6-1.0) Estimated GFR (Cockcroft-Gault) 66.5 BUN/Creatinine Ratio 18 (6-20) Glucose Level 111 mg/dL (70-99) H Calcium Level 8.8 mg/dL (8.5-10.1) Magnesium Level 2.0 mg/dL (1.8-2.4) Total Bilirubin 0.4 mg/dL (0.2-1.0) Aspartate Amino Transferase (AST) 19 U/L (15-37) Alanine Aminotransferase (ALT) 32 U/L (14-59) Alkaline Phosphatase 85 U/L (46-116) Troponin I Quantitative < 0.017 ng/mL (0.000-0.055) WW-Aye-G-Type Natriuretic Peptide < 5 pg/mL (0-124) Total Protein 7.7 g/dL (6.4-8.2) Albumin 4.2 g/dL (3.4-5.0) Albumin/Globulin Ratio 1.2 (1.0-1.7) Lipase 105 U/L (73-393) Laboratory Tests 07/01/20 19:20 Laboratory Tests 07/01/20 19:20 Vital Signs: Vital Signs Date Time Temp Pulse Resp B/P (MAP) Pulse Ox O2 Delivery O2 Flow Rate FiO2 07/01/20 19:10 97.6 79 20 136/84 (101) 100 Room Air 97.6 EKG: EKG: EKG was done at 1912, heart rate of 78 bpm, sinus rhythm, left axis deviation, no ST segment elevation. Radiology/Procedures: Radiology/Procedures: [][facility] [address] [place] [address] IMAGING REPORT Signed PATIENT: HAYLEY HARDY ACCOUNT: [id number] : 1970 LOCATION: ER AGE: 49 SEX: F EXAM STATUS: REG ER ORD. PHYSICIAN: NANDO BHARDWAJ DO REASON: chest pain PROCEDURE: PORTABLE CHEST 1V Exam: Chest one view INDICATION: Chest pain TECHNIQUE: Frontal view of the chest Comparisons: 11/18/2019 FINDINGS: The cardiomediastinal silhouette and pulmonary vessels are within normal limits. The lung and pleural spaces are clear. IMPRESSION: No acute cardiopulmonary process. Electronically signed by: Candida Cervantes MD (07/01/2020 7:59 PM) [facility] DICTATED and SIGNED BY: CANDIDA CERVANTES MD DATE: 07/01/20 [id number] Course & Med Decision Making: Course & Med Decision Making Pertinent Labs and Imaging studies reviewed. (See chart for details) Patient is a 49-year-old female who presents to ER for evaluation of epigastric abdominal pain, consistent with gastritis. Patient was given GI cocktail and antacid in the ER, she feel much better. Patient will be discharged home with antiacid medication and Carafate. Patient will need to follow-up with GI doctor for outpatient evaluation for EGD. Dragon Disclaimer: Dragon Disclaimer: This electronic medical record was generated, in whole or in part, using a voice recognition dictation system. Departure Departure Impression: Primary Impression: Gastritis Additional Impression: Urinary tract infection Disposition: HOME / SELF CARE / HOMELESS Condition: IMPROVED Referrals: ALYSSA ROMANO MD (PCP) follow up with your doctor this week for reevaluation in 2 days. You will need a referral to a GI specialist for evaluation with EGD. MAYURI THOMAS MD fOLLOW UP WITH THIS GI DOCTOR THIS WEEK. Patient Instructions: Gastritis, Adult, Urinary Tract Infection Additional Instructions: Thank you for visiting our Emergency Department. We appreciate you trusting us with your care. If any additional problems come up don't hesitate to return to visit us. Please follow up with your primary care provider so they can plan additional care if needed and know about the problem that you had. If symptoms worsen come back to the Emergency Department. Any concerning symptoms that start such as chest pain, shortness of air, weakness or numbness on one side of the body, running high fevers or any other concerning symptoms return to the ER. Scripts Cephalexin (CEPHALEXIN) 500 Mg Tablet 1 TAB PO QID for 7 Days, #28 TAB Prov: NANDO BHARDWAJ DO 07/01/20 Sucralfate (CARAFATE) 1 Gm Tablet 1 TAB PO QID for 21 Days, #84 TAB 0 Refills Prov: NANDO BHARDWAJ DO 07/01/20 Omeprazole Magnesium (PRILOSEC OTC) 20 Mg Tablet.dr 1 TAB PO BID for 30 Days, #60 TAB 0 Refills Prov: NANDO BHARDWAJ DO 07/01/20 NANDO BHARDWAJ DO July 01, 2020 21:07
[2020-07-01 21:14] LABS: BILIRUBIN,URINE NEGATIVE (NEG); CLARITY,URINE CLEAR; COLOR,URINE YELLOW; NITRITE,URINE NEGATIVE (NEG); PROTEIN,URINE NEGATIVE (NEG-TRACE); UROBILINOGEN,URINE 0.2 mg/dL (0.2 mg/dL)
[2020-07-01 21:19] LABS: BACTERIA,URINE 0 /HPF (0-FEW); RBC,URINE 0 /HPF (0-2)
[2020-07-01 21:46] VITALS: BP 104/60
[2020-07-01] MEDS ORDERED: CEPH500T PO (21:50)
== END 2020-07-01 21:48 | disposition home or self-care (01) ==
LOC: ER 19:04
DX: K29.70 Gastritis, unspecified, without bleeding (principal); N39.0 Urinary tract infection, site not specified; K21.9 Gastro-esophageal reflux disease without esophagitis; E78.00 Pure hypercholesterolemia, unspecified; I10 Essential (primary) hypertension; Z87.442 Personal history of urinary calculi
CPT/HCPCS: 36415; 71045; 80053; 81001; 83690; 83735; 83880; 84484; 85025; 87086; 93005; 96374; 99285; J3490

== ENCOUNTER 2020-11-23 22:26 | Emergency (ER) | payer OTHER ==
[~2020-11-23] VITALS: Ht 162.6 cm; Wt 80.0 kg
[~2020-11-23 22:26] MED LIST changes: +OMEP20TA63 PO; +POTA-121 PO
--- NOTE | 2020-11-24 00:24 | PHYS DOC ---
Past Medical History Past Medical History: GERD, High Cholesterol, Hypertension, Kidney Stone, UTI, Other Additional Past Medical Histor: "Stomach", possibly acid reflux, Past Surgical History: Other Additional Past Surgical Histo: KIDNEY STONES Smoking Status: Never Smoker Alcohol Use: None Drug Use: None General Adult EDM: Chief Complaint: SHORTNESS OF BREATH HPI: HPI: Patient is a 50-year-old female presenting for multiple symptoms. Patient history obtained with assistance from friend over the phone as patient's primary language is Greek and there were no active interpreters on audibly phone. Reports generalized URI symptoms and sore throat that was first noticed this morning. Nothing known makes better or worse. Also reports vague chest pressure and epigastric pain. She does have history of gastritis, unable to state if this feels similar to prior episodes. She has been vaccinated against COVID-19 with [employer] Review of Systems: Review of Systems: Fourteen body systems of review of systems have been reviewed. See HPI for pertinent positives and negative responses, other jett all other systems are negative, non-pertinent or non-contributory Heart Score: C/O Chest Pain: Yes HEART Score for Chest Pain: HEART Score for Chest Pain Response (Comments) Value History Slighlty/Non-Suspicious 0 ECG Normal 0 Age >45 - < 65 1 Risk Factors 1 or 2 Risk Factors 1 Troponin < Normal Limit 0 Total 2 Risk Factors: Risk Factors: DM, Current or recent (<one month) smoker, HTN, HLP, family history of CAD, obesity. Risk Scores: Score 0 - 3: 2.5% MACE over next 6 weeks - Discharge Home Score 4 - 6: 20.3% MACE over next 6 weeks - Admit for Clinical Observation Score 7 - 10: 72.7% MACE over next 6 weeks - Early Invasive Strategies Allergies: Allergies: Allergies Coded Allergies Type Severity Reaction Last Updated Verified No Known Medication Allergies Allergy Unknown 08/13/17 Yes Physical Exam: PE: General: Appears well, non toxic, and comfortable Skin: Warm, dry. Normal for ethnicity. HEENT: Atraumatic. PERRLA. EOMI. Right conjunctiva injected, rhinorrhea and congestion. Nasal turbinates boggy b/l. Moist mucous membranes. Uvula midline. Maintaining secretions. No phonation changes. Neck: Trachea midline. Normal ROM. No stridor. Respiratory: Normal WOB. CTAB w/o w/r/r. No tachypnea. Cardiovascular: Regular rate and rhythm. Normal peripheral perfusion. Abdomen: Soft. Non tender. No distension. Back: Normal ROM. Musculoskeletal: No swelling or deformity. Neuro: Alert and oriented x 4. MAEE. Lymph: No cervical LAD. Psych: Normal affect and mood. Current Patient Data: Labs: Laboratory Tests Test 11/24/20 00:45 11/24/20 01:00 SARS-CoV-2 Antigen (Rapid) Negative White Blood Count 8.7 x10^3/uL Red Blood Count 4.48 x10^6/uL Hemoglobin 14.3 g/dL Hematocrit 40.4 % Mean Corpuscular Volume 90 fL Mean Corpuscular Hemoglobin 32 pg Mean Corpuscular Hemoglobin Concent 35 g/dL Red Cell Distribution Width 12.9 % Platelet Count 279 x10^3/uL Neutrophils (%) (Auto) 61 % Lymphocytes (%) (Auto) 27 % Monocytes (%) (Auto) 10 % Eosinophils (%) (Auto) 2 % Basophils (%) (Auto) 1 % Neutrophils # (Auto) 5.3 x10^3/uL Lymphocytes # (Auto) 2.4 x10^3/uL Monocytes # (Auto) 0.8 x10^3/uL Eosinophils # (Auto) 0.2 x10^3/uL Basophils # (Auto) 0.0 x10^3/uL Sodium Level 142 mmol/L Potassium Level 3.0 mmol/L Chloride Level 107 mmol/L Carbon Dioxide Level 27 mmol/L Anion Gap 8 Blood Urea Nitrogen 18 mg/dL Creatinine 0.9 mg/dL Estimated GFR (Cockcroft-Gault) 66.3 BUN/Creatinine Ratio 20 Glucose Level 116 mg/dL Calcium Level 8.7 mg/dL Total Bilirubin 0.6 mg/dL Aspartate Amino Transf (AST/SGOT) 15 U/L Alanine Aminotransferase (ALT/SGPT) 24 U/L Alkaline Phosphatase 86 U/L Troponin I Quantitative < 0.017 ng/mL Total Protein 7.5 g/dL Albumin 3.7 g/dL Albumin/Globulin Ratio 1.0 Current Medications Medications (Trade) Dose Ordered Sig/Celsa Route PRN Reason Start Time Stop Time Status Last Admin Dose Admin Multi-Ingredient Mouthwash/Gargle (Gi Cocktail) 20 ml 1X ONCE SWSW 11/24/20 01:00 11/24/20 01:01 DC 11/24/20 01:00 Potassium Chloride (Klor-Con) 40 meq 1X ONCE PO 11/24/20 02:00 11/24/20 02:01 Vital Signs: Vital Signs Date Time Temp Pulse Resp B/P (MAP) Pulse Ox O2 Delivery O2 Flow Rate FiO2 11/24/20 00:00 97.9 73 18 130/65 (86) 99 Room Air 97.9 Vital Signs Date Time Temp Pulse Resp B/P (MAP) Pulse Ox O2 Delivery O2 Flow Rate FiO2 11/24/20 00:00 97.9 73 18 130/65 (86) 99 Room Air 97.9 EKG: EKG: EKG ordered and interpreted by myself at 2243 hrs. is sinus rhythm at 75 bpm, QTC 515 otherwise unremarkable intervals, no axis deviation, no STEMI Radiology/Procedures: Radiology/Procedures: EXAM: AP View of the chest DATE: 11/24/2020 12:28 AM INDICATION: Reason: shob / Spl. Instructions: / History: COMPARISON: 07/01/2020 FINDINGS: Lung apices are not included in the [id number]. The heart is not enlarged. Mediastinal and hilar contours are normal. No focal parenchymal airspace opacity. No pleural effusion or pneumothorax. IMPRESSION: 1. No radiographic evidence for acute cardiopulmonary process. Electronically signed by: Ángel Fitzgerald MD (11/24/2020 12:46 AM) [facility] Course & Med Decision Making: Course & Med Decision Making Vitals, HPI, physical exam and comprehensive ER work-up nonconcerning for any emergent or surgical issues Sore throat likely self-limiting in etiology, likely viral in nature. Rapid Covid negative. Supportive care practices advised. Discussed low risk of peritonsillar abscess or other potentially emergent issues Supportive care practices advised with close outpatient primary care follow-up for repeat evaluation advised. Strict return precautions were discussed with good understanding verbalized by patient. Patient and brother who was on phone translating are understandable of diagnoses and need for close outpatient follow-up for reassessment and lab draw to evaluate patient for hypokalemia. All questions and concerns addressed prior to ER departure Gena Disclaimer: Dragon Disclaimer: This electronic medical record was generated, in whole or in part, using a voice recognition dictation system. Departure Departure Impression: Primary Impression: Viral syndrome Additional Impressions: Sore throat Hypokalemia Disposition: HOME / SELF CARE / HOMELESS Condition: STABLE Referrals: ALYSSA ROMANO MD (PCP) Patient Instructions: Viral Syndrome Additional Instructions: You were seen for a sore throat and atypical chest pain. You should return to the ED if you develop worsening cough, shortness of breath, chest pain, or any other new or concerning symptoms. You can use an OTC sinus rinse to help with sinus congestion in addition to [id number] sore throat remedies and honey. You should make sure to drink plenty of fluids. MENA SUAREZ DO Nov 24, 2020 00:23
--- NOTE | 2020-11-24 00:48 | RAD ---
EXAM: AP View of the chest DATE: 11/24/2020 12:28 AM INDICATION: Reason: shob / Spl. Instructions: / History: COMPARISON: 07/01/2020 FINDINGS: Lung apices are not included in the [id number]. The heart is not enlarged. Mediastinal and hilar contours are normal. No focal parenchymal airspace opacity. No pleural effusion or pneumothorax. IMPRESSION: 1. No radiographic evidence for acute cardiopulmonary process. Electronically signed by: Ángel Fitzgerald MD (11/24/2020 12:46 AM) [facility]
[2020-11-24] MEDS ORDERED: LIDO:MAALOX 1:1 20 ML SINGLE DOSE. SWSW ONE (01:00)
[2020-11-24 01:14] LABS: BASO % 1 % (0-3); EOS # 0.2 x10^3/uL (0.0-0.7); EOS % 2 % (0-3); HEMATOCRIT 40.4 % (36.0-47.0); HEMOGLOBIN 14.3 g/dL (12.0-15.5); LYMPH # 2.4 x10^3/uL (1.0-4.8); LYMPH % 27 % (24-48); MEAN CORPUSCULAR HEMOGLOBIN 32 pg (25-35); MEAN CORPUSCULAR HGB CONC 35 g/dL (31-37); MEAN CORPUSCULAR VOLUME 90 fL (79-100); MONO # 0.8 x10^3/uL (0.0-1.1); MONO % 10 % (0-9); NEUT # 5.3 x10^3/uL (1.8-7.7); NEUT % 61 % (31-73); PLATELET COUNT 279 x10^3/uL (140-400); RED BLOOD COUNT 4.48 x10^6/uL (3.50-5.40); RED CELL DISTRIBUTION WIDTH 12.9 % (11.5-14.5); WHITE BLOOD COUNT 8.7 x10^3/uL (4.0-11.0)
[2020-11-24 01:28] LABS: ALBUMIN 3.7 g/dL (3.4-5.0); CALCIUM 8.7 mg/dL (8.5-10.1); CREATININE 0.9 mg/dL (0.6-1.0); GFR 66.3; TOTAL BILIRUBIN 0.6 mg/dL (0.2-1.0); TOTAL PROTEIN 7.5 g/dL (6.4-8.2)
[2020-11-24 01:45] VITALS: BP 134/82
[2020-11-24] MEDS ORDERED: POTASSIUM CHLORIDE 20 MEQ TABLET.ER. PO ONE (02:00)
--- NOTE | 2020-11-25 15:40 | NUR ---
IP: Attempted to notify patient of negative COVID19 test result. Voicemail message left to please return call at number provided.
--- NOTE | 2020-11-26 10:50 | NUR ---
IP: Attempted to notify patient of negative COVID19 test results. Voicemail message left to please return call at the number provided.
== END 2020-11-24 02:00 | disposition home or self-care (01) ==
LOC: ER 22:26
DX: B34.9 Viral infection, unspecified (principal); J02.9 Acute pharyngitis, unspecified; E87.6 Hypokalemia; K21.9 Gastro-esophageal reflux disease without esophagitis; E78.00 Pure hypercholesterolemia, unspecified; I10 Essential (primary) hypertension; Z20.822 Contact with and (suspected) exposure to COVID-19; Z87.442 Personal history of urinary calculi; Z87.440 Personal history of urinary (tract) infections
CPT/HCPCS: 36415; 71045; 80053; 84484; 85025; 87070; 87426; 87880; 99285; U0003; U0005